=== PATIENT | female | born 1960 | race Two or more races ===

== ENCOUNTER → 2020-08-24 14:32 | Outpatient (BNVA) | payer OTHER, SELFPAY | PROVIDERS: PCP Internal Medicine; Visit Provider Internal Medicine | DX: E66.9 Obesity, unspecified (principal); G47.33 Obstructive sleep apnea (adult) (pediatric); R05 Cough; G47.34 Idiopathic sleep related nonobstructive alveolar hypoventilation; Z99.89 Dependence on other enabling machines and devices | CPT/HCPCS: 99202 ==

== ENCOUNTER 2020-09-05 15:05 | Outpatient (REF) | payer OTHER, SELFPAY ==
--- NOTE | 2020-09-05 17:24 | PFT_ITS ---
FLOWS: FEV1 of 89% of predicted at 2.20 L. FVC 83% of predicted at 2.58 L. FEV1 to FVC ratio of 0.85. No bronchodilator response. LUNG VOLUMES: Total lung capacity 87% of predicted at 4.30 L. Residual volume 84% of predicted at 1.64 L. Slow vital capacity 89% of predicted at 2.66 L. Expiratory reserve volume 50% of predicted at 0.42 L. Diffusion capacity is normal. IMPRESSION: No obstructive or restrictive ventilatory defect. No bronchodilator response. Decreased expiratory reserve volume suggests extrathoracic restriction likely secondary to abdominal obesity. Otherwise normal pulmonary function test. MD PIPE Lal/MODL / [id number]
== END 2020-09-05 15:06 | disposition home or self-care (01) ==
LOC: HO.RESP 15:05
PROVIDERS: Visit Provider Internal Medicine
DX: R05 Cough (principal); G47.33 Obstructive sleep apnea (adult) (pediatric); G47.34 Idiopathic sleep related nonobstructive alveolar hypoventilation; Z99.89 Dependence on other enabling machines and devices
CPT/HCPCS: 94060; 94727; 94729

== ENCOUNTER → 2020-09-06 13:58 | Outpatient (BNVA) | payer OTHER, SELFPAY | PROVIDERS: PCP Internal Medicine; Visit Provider Internal Medicine | DX: G47.33 Obstructive sleep apnea (adult) (pediatric) (principal); R05 Cough; Z99.89 Dependence on other enabling machines and devices | CPT/HCPCS: 99212 ==

== ENCOUNTER → 2021-04-16 21:02 | Outpatient (REF) | payer OTHER, SELFPAY | LOC: HO.SL 21:02 | PROVIDERS: PCP Internal Medicine; Visit Provider Internal Medicine | DX: G47.33 Obstructive sleep apnea (adult) (pediatric) (principal) | CPT/HCPCS: 95810 ==

== ENCOUNTER 2022-01-04 14:46 | Outpatient (REF) | payer OTHER, SELFPAY ==
--- NOTE | ~2022-01-04 | XR_ITS ---
EXAMINATION: BILATERAL ANKLE X-RAY CLINICAL INFORMATION: Bilateral ankle pain COMPARISON: None TECHNIQUE: 3 views of each ankle FINDINGS: Bone alignment is normal. No fracture or dislocation is seen. The ankle mortise is normal. There are large bilateral calcaneal spurs. Soft tissues are otherwise normal. XR/XR ankle LT 2V IMPRESSION: Large bilateral calcaneal spurs. Otherwise unremarkable exam.
--- NOTE | ~2022-01-04 | XR_ITS ---
EXAMINATION: BILATERAL FOOT X-RAY CLINICAL INFORMATION: Pain COMPARISON: Previous left foot July 2010 TECHNIQUE: 3 views of each foot FINDINGS: Bone alignment is normal. No fracture or dislocation is seen. There are mild degenerative changes at the navicular cuneiform joints bilaterally and right first MTP joint. Joint spaces are otherwise normal. There are large bilateral calcaneal spurs. There are accessory perineal ossicles bilaterally. XR/XR foot LT min 3V IMPRESSION: Large bilateral calcaneal spurs. Mild degenerative changes at the navicular cuneiform joints bilaterally and right first MTP joint. Bilateral accessory perineal ossicles.
--- NOTE | ~2022-01-04 | XR_ITS ---
EXAMINATION: BILATERAL FOOT X-RAY CLINICAL INFORMATION: Pain COMPARISON: Previous left foot July 2010 TECHNIQUE: 3 views of each foot FINDINGS: Bone alignment is normal. No fracture or dislocation is seen. There are mild degenerative changes at the navicular cuneiform joints bilaterally and right first MTP joint. Joint spaces are otherwise normal. There are large bilateral calcaneal spurs. There are accessory perineal ossicles bilaterally. XR/XR foot RT min 3V IMPRESSION: Large bilateral calcaneal spurs. Mild degenerative changes at the navicular cuneiform joints bilaterally and right first MTP joint. Bilateral accessory perineal ossicles.
--- NOTE | ~2022-01-04 | XR_ITS ---
EXAMINATION: BILATERAL ANKLE X-RAY CLINICAL INFORMATION: Bilateral ankle pain COMPARISON: None TECHNIQUE: 3 views of each ankle FINDINGS: Bone alignment is normal. No fracture or dislocation is seen. The ankle mortise is normal. There are large bilateral calcaneal spurs. Soft tissues are otherwise normal. XR/XR ankle RT 2V IMPRESSION: Large bilateral calcaneal spurs. Otherwise unremarkable exam.
== END 2022-01-04 14:47 | disposition home or self-care (01) ==
LOC: HO.XRAY 14:46
PROVIDERS: PCP Internal Medicine; Visit Provider Emergency Medicine
DX: M79.671 Pain in right foot (principal); M79.672 Pain in left foot
CPT/HCPCS: 73600; 73630

== ENCOUNTER 2022-04-26 15:29 | Outpatient (REF) | payer OTHER, SELFPAY ==
--- NOTE | ~2022-04-26 | MM_ITS ---
EXAMINATION: MM SCREENING DIGITAL BREAST TOMOSYNTHESIS, BILATERAL CLINICAL INFORMATION: Screening. Asymptomatic. The lifetime risk of breast cancer based on the Tyrer-Cuzick Model is 6.7%. COMPARISON: Mammography: March 04, 2020 and studies dating back to August 09, 2015 TECHNIQUE: Digital breast tomosynthesis is performed in both the craniocaudal and mediolateral oblique views along with computer-aided detection (CAD). Synthesized 2D images are generated from the tomosynthesis. FINDINGS: There are scattered areas of fibroglandular density (ACR BI-RADS breast composition Category b). There are no significant masses, abnormal calcifications, or other abnormalities. MM/MM tomosynthesis screening BI IMPRESSION: No significant changes from prior exam. ASSESSMENT: BI-RADS 1: Negative RECOMMENDATION: Routine annual mammography screening. This patient's information was entered into a reminder system with a target due date for their next mammogram.
== END 2022-04-26 15:30 | disposition home or self-care (01) ==
LOC: HO.MAMMO 15:29
PROVIDERS: PCP Internal Medicine; Visit Provider Internal Medicine
DX: Z12.31 Encounter for screening mammogram for malignant neoplasm of breast (principal)
CPT/HCPCS: 77063; 77067

== ENCOUNTER → 2022-09-19 12:53 | Outpatient (BNVA) | payer OTHER, SELFPAY | PROVIDERS: PCP Internal Medicine; Referring Provider Emergency Medicine; Visit Provider Surgery | DX: Z12.11 Encounter for screening for malignant neoplasm of colon (principal); Z80.3 Family history of malignant neoplasm of breast | CPT/HCPCS: 99202 ==

== ENCOUNTER 2022-10-17 15:00 | Outpatient (RCR) | payer OTHER, SELFPAY | END 2022-10-26 10:29 | disposition home or self-care (01) | LOC: HO.PT 15:00 | PROVIDERS: PCP Internal Medicine; Visit Provider Registered Nurse | DX: M77.31 Calcaneal spur, right foot (principal); M77.32 Calcaneal spur, left foot | CPT/HCPCS: 97033; 97110; 97140; 97162 ==

== ENCOUNTER 2022-12-19 12:16 | Outpatient (REF) | payer OTHER, SELFPAY ==
--- NOTE | ~2022-12-19 | XR_ITS ---
EXAMINATION: XR ANKLE, RIGHT CLINICAL INFORMATION: Pain without injury. COMPARISON: Radiographs dated 01/04/2022. TECHNIQUE: AP, lateral, and mortise views of the right ankle. FINDINGS: Bony alignment and mineralization are normal. The ankle mortise is intact. No fracture, dislocation or right ankle joint effusion is seen. Boehler's angle is normal. There are large posterior and plantar calcaneal spurs. There is moderate soft tissue swelling, most pronounced adjacent to the medial malleolus. XR/XR ankle LT min 3V IMPRESSION: 1. No fracture, dislocation or right ankle joint effusion is seen. 2. There are large posterior and plantar right calcaneal spurs. 3. There is moderate soft tissue swelling, most pronounced adjacent to the medial malleolus. EXAMINATION: XR ANKLE, LEFT CLINICAL INFORMATION: Pain without injury. COMPARISON: Radiographs dated 01/04/2022. TECHNIQUE: AP, lateral, and mortise views of the left ankle. FINDINGS: Bony alignment and mineralization are normal. The ankle mortise is intact. No fracture, dislocation or left ankle joint effusion is seen. Boehler's angle is normal. There are moderately large posterior and plantar calcaneal spurs. There are degenerative changes of the dorsal midfoot. The soft tissue planes are unremarkable. IMPRESSION: 1. No fracture, dislocation or left ankle joint effusion is seen. 2. There are moderately large posterior and plantar left calcaneal spurs.
--- NOTE | ~2022-12-19 | XR_ITS ---
EXAMINATION: XR KNEE, RIGHT CLINICAL INFORMATION: Pain without injury. COMPARISON: None available. TECHNIQUE: AP, lateral, tunnel, and sunrise views of the right knee. FINDINGS: Bony alignment and mineralization are normal. The lateral, medial and patellofemoral joint space compartments are well-maintained. There is mild is peripheral osteophyte formation of the medial and patellofemoral compartments. No fracture, dislocation or joint effusion is seen. There is no foreign body. XR/XR knee LT 4V IMPRESSION: 1. There is mild osteoarthritic change of the medial and patellofemoral joint space compartments of the right knee. 2. No fracture, dislocation or joint effusion is seen. EXAMINATION: XR KNEE, LEFT CLINICAL INFORMATION: Pain without injury. COMPARISON: Radiographs dated 03/23/2009. TECHNIQUE: Four views of the left knee. FINDINGS: Bony alignment and mineralization are normal. The lateral, medial and patellofemoral joint space compartments are well-maintained. There is mild peripheral osteophyte formation of the medial and patellofemoral compartments. No fracture, dislocation or joint effusion is seen. No varus or valgus configuration is seen. There is no foreign body. IMPRESSION: 1. There is mild osteoarthritic change of the medial and patellofemoral joint space compartment of the left knee. 2. No fracture, dislocation or joint effusion is seen.
--- NOTE | ~2022-12-19 | XR_ITS ---
EXAMINATION: XR KNEE, RIGHT CLINICAL INFORMATION: Pain without injury. COMPARISON: None available. TECHNIQUE: AP, lateral, tunnel, and sunrise views of the right knee. FINDINGS: Bony alignment and mineralization are normal. The lateral, medial and patellofemoral joint space compartments are well-maintained. There is mild is peripheral osteophyte formation of the medial and patellofemoral compartments. No fracture, dislocation or joint effusion is seen. There is no foreign body. XR/XR knee RT 4V IMPRESSION: 1. There is mild osteoarthritic change of the medial and patellofemoral joint space compartments of the right knee. 2. No fracture, dislocation or joint effusion is seen. EXAMINATION: XR KNEE, LEFT CLINICAL INFORMATION: Pain without injury. COMPARISON: Radiographs dated 03/23/2009. TECHNIQUE: Four views of the left knee. FINDINGS: Bony alignment and mineralization are normal. The lateral, medial and patellofemoral joint space compartments are well-maintained. There is mild peripheral osteophyte formation of the medial and patellofemoral compartments. No fracture, dislocation or joint effusion is seen. No varus or valgus configuration is seen. There is no foreign body. IMPRESSION: 1. There is mild osteoarthritic change of the medial and patellofemoral joint space compartment of the left knee. 2. No fracture, dislocation or joint effusion is seen.
--- NOTE | ~2022-12-19 | XR_ITS ---
EXAMINATION: XR ANKLE, RIGHT CLINICAL INFORMATION: Pain without injury. COMPARISON: Radiographs dated 01/04/2022. TECHNIQUE: AP, lateral, and mortise views of the right ankle. FINDINGS: Bony alignment and mineralization are normal. The ankle mortise is intact. No fracture, dislocation or right ankle joint effusion is seen. Boehler's angle is normal. There are large posterior and plantar calcaneal spurs. There is moderate soft tissue swelling, most pronounced adjacent to the medial malleolus. XR/XR ankle RT min 3V IMPRESSION: 1. No fracture, dislocation or right ankle joint effusion is seen. 2. There are large posterior and plantar right calcaneal spurs. 3. There is moderate soft tissue swelling, most pronounced adjacent to the medial malleolus. EXAMINATION: XR ANKLE, LEFT CLINICAL INFORMATION: Pain without injury. COMPARISON: Radiographs dated 01/04/2022. TECHNIQUE: AP, lateral, and mortise views of the left ankle. FINDINGS: Bony alignment and mineralization are normal. The ankle mortise is intact. No fracture, dislocation or left ankle joint effusion is seen. Boehler's angle is normal. There are moderately large posterior and plantar calcaneal spurs. There are degenerative changes of the dorsal midfoot. The soft tissue planes are unremarkable. IMPRESSION: 1. No fracture, dislocation or left ankle joint effusion is seen. 2. There are moderately large posterior and plantar left calcaneal spurs.
== END 2022-12-19 12:17 | disposition home or self-care (01) ==
LOC: HO.HHCX 12:16
PROVIDERS: Visit Provider Family Medicine
DX: M79.671 Pain in right foot (principal); M79.672 Pain in left foot; M25.561 Pain in right knee; M25.562 Pain in left knee
CPT/HCPCS: 73564; 73610

== ENCOUNTER 2023-01-03 09:02 | Outpatient (REF) | payer OTHER, SELFPAY ==
--- NOTE | ~2023-01-03 | US_ITS ---
EXAMINATION: US ABDOMEN COMPLETE CLINICAL INFORMATION: Left upper quadrant abdominal pain. COMPARISON: CT abdomen and pelvis 11/15/2010. Ultrasound abdomen 06/07/2008. TECHNIQUE: Real-time imaging of the abdominal viscera. Technically difficult study secondary to bowel gas. FINDINGS: PANCREAS: Obscured. ABDOMINAL AORTA: Obscured. INFERIOR VENA CAVA: Visualized portions are normal. LIVER: The liver is normal in size. The liver contour is normal. There is diffuse increased liver parenchymal echogenicity, consistent with hepatic steatosis. No definite focal lesion is seen, but evaluation is limited due to poor sound beam penetration through the coarse echogenic liver parenchyma. There is no intrahepatic biliary duct dilatation seen. GALLBLADDER: Surgically absent. COMMON BILE DUCT: Normal in caliber measuring 0.8 cm in diameter. RIGHT KIDNEY: No hydronephrosis. No renal calculi or focal parenchymal lesions. The kidney measures 9.9 cm in maximum dimension. LEFT KIDNEY: No hydronephrosis. No renal calculi or focal parenchymal lesions. The kidney measures 10.0 cm in maximum dimension. SPLEEN: The spleen measures 8.1 cm in maximum dimension. FREE FLUID: None. US/US abdomen complete IMPRESSION: Hepatic steatosis.
== END 2023-01-03 09:03 | disposition home or self-care (01) ==
LOC: HO.US 09:02
PROVIDERS: PCP Internal Medicine; Visit Provider Family Medicine
DX: R19.02 Left upper quadrant abdominal swelling, mass and lump (principal)
CPT/HCPCS: 76700

== ENCOUNTER 2023-01-22 09:00 | Day surgery (SDC) | payer OTHER, SELFPAY ==
[2023-01-18 13:26] VITALS: BMI 35.2
--- NOTE | 2023-01-21 09:12 | HO.ANESPROP2 ---
HPI - Anesthesia Eval Consult details Narrative: 62yo F for Colonoscopy, poss polypectomy PONV PMFSH Active Problems Active Problems: All Active Problems (Updated 10/04/22 @ 10:55 by Millie Lambert, RN) Family history of breast cancer (Acute) Colon cancer screening (Acute) Nocturnal hypoxemia (Acute) Cough (Acute) MAYCOL on CPAP (Acute) Obesity (BMI 30-39.9) (Acute) Past Medical History Medical History (Updated 10/04/22 @ 10:55 by Millie Lambert, RN) Chronic headache disorder Colon cancer screening Cough Depressive disorder Family history of breast cancer Nocturnal hypoxemia Obesity Obesity (BMI 30-39.9) MAYCOL on CPAP PONV (postoperative nausea and vomiting) Type II diabetes mellitus Surgical History Surgical History (Updated 10/04/22 @ 10:55 by Millie Lambert, RN) History of tubal ligation Hx of cholecystectomy Hx of colonoscopy Social History Social History Alcohol intake: never Patient Tobacco Use Status: Former Tobacco user Quit Date: > 25 yrs ago Meds Allergies Allergy/AdvReac Type Severity Reaction Status Date / Time No Known Allergies Allergy Verified 09/19/22 13:01 Home Medications Medication Instructions Recorded Confirmed Last Taken Type hydrocortisone 2.5 % topical cream [place] 10/04/22 10/04/22 Unknown History with perineal applicator Exam Exam Date and Time: January 21, 2023 0912 Height,Weight and Vital Signs: Height 5 ft 3 in Weight 90.265 kg Assessment and Plan Assessment Anesthesia Assessment: Chart Reviewed
--- NOTE | 2023-01-22 09:25 | MHC.SHP ---
Pre-Procedural Eval Section A Date of Service: 01/22/23 Section B Chief Complaint: screening,Family history of malignant neoplasm of Details of Present Illness: for screening colonoscopy, no GI complaints Relevant Social History: None Present Medications: see Short Stay Collaborative assessment Medical History: Significant History (MAYCOL, obesity) History of Previous Operations: No relevant previous surgery Allergies: Allergies Allergy/AdvReac Type Severity Reaction Status Date / Time No Known Allergies Allergy Verified 09/19/22 13:01 Review of Systems Sugical H&P ROS: Negative: Constitution, Cardiovascular, Respiratory, Neurological, Psychiatric, Hem-Onc, Allergic/Immunologic, Gastrointestinal, Genitourinary, Musculoskeletal, Integumentary, Endocrine and Eyes/Ears/Nose/Throat Exam Surgical H&P Exam: Normal: HEENT, Normal: Heart, Normal: Lungs, Normal: Extremities, Normal: Abdomen, Normal: Skin and Normal: Neurological Plan Diagnosis/Plan: Unchanged I have reviewed the history and physical and performed a pertinent physical examination on my patient. No changes have occurred unless specified. Time Spent With Patient Time: Total time managing care of this patient today ____ minutes.
[2023-01-22 09:29] VITALS: BP 155/71; PULSE 77; RESP 16; TEMP 36.8; O2SAT 97
[2023-01-22 09:38] LABS: Glucose, Whole Blood 155 mg/dL (60-115)
[2023-01-22] MEDS: Lactated Ringers 1,000 ML 100 ML IVCONT (09:41)
--- NOTE | 2023-01-22 09:58 | HO.ANESPROP2 ---
[facility] Active Problems Active Problems: All Active Problems (Updated 01/22/23 @ 09:22 by Kim Beckett RN) Family history of breast cancer (Acute) Colon cancer screening (Acute) Nocturnal hypoxemia (Acute) Cough (Acute) MAYCOL on CPAP (Acute) Obesity (BMI 30-39.9) (Acute) Past Medical History Medical History Chronic headache disorder Colon cancer screening Cough Depressive disorder Family history of breast cancer Nocturnal hypoxemia Obesity Obesity (BMI 30-39.9) MAYCOL on CPAP PONV (postoperative nausea and vomiting) Tachycardia Type II diabetes mellitus Family History Family history of problems with anesthesia: No Surgical History Surgical History History of tubal ligation Hx of cholecystectomy Hx of colonoscopy History of Problems with Anesthesia: No Social History Social History Alcohol intake: never Patient Tobacco Use Status: Former Tobacco user Quit Date: > 25 yrs ago Use of substances other than those prescribed or required for medical reasons: No Are you DNR?: No Advance Directives: No Advance Directives Information Provided: Yes Meds Allergies Allergy/AdvReac Type Severity Reaction Status Date / Time No Known Allergies Allergy Verified 09/19/22 13:01 Active Medications: Current Medications Lactated Ringer's (Lr) 1,000 mls @ 100 mls/hr IVCONT .Q10H FELIPE Last Admin: 01/22/23 09:41 Dose: 100 mls/hr Home Medications Medication Instructions Recorded Confirmed Last Taken Type hydrocortisone 2.5 % topical cream SC 10/04/22 10/04/22 Unknown History with perineal applicator acetaminophen 650 mg 650 mg PO Q8H PRN mild pain 01/22/23 Unknown History tablet,extended release (Mapap Arthritis Pain) cetirizine 10 mg tablet 10 mg PO DAILY 01/22/23 Unknown History diclofenac sodium 1 % topical gel topical 01/22/23 Unknown History meloxicam 15 mg tablet 15 mg PO DAILY 01/22/23 Unknown History naproxen 500 mg tablet 500 mg PO BID 01/22/23 Unknown History nirmatrelvir 300 mg (150 mg ea PO 01/22/23 Unknown History x2)-ritonavir 100 mg tablet,dose pack (Paxlovid) Exam Exam Date and Time: January 22, 2023 0958 Height,Weight and Vital Signs: Height 5 ft 3 in Weight 90.265 kg Last Vital Signs Temp 98.3 F 01/22/23 09:29 Pulse 77 01/22/23 09:29 Resp 16 01/22/23 09:29 BP 155/71 H 01/22/23 09:29 Pulse Ox 97 01/22/23 09:29 O2 Del Method Room Air 01/22/23 09:29 Pertinent Lab Results Pertinent Lab Results: Laboratory Tests 01/22/23 09:34 POC Glucose 155 H Airway Mallampati Class: IV TM Dist: >3cm Neck ROM: Full Heart: RRR Lungs: CTA Assessment and Plan Assessment Anesthesia Assessment: Anesthesia Plan Discussed Final Anesthetic Review Family History of Problems with Anesthesia: No History of Problems with Anesthesia: No NPO: Yes ASA Class: III Final Preanesthetic Review: Meds/Allgs Chart Reviewed, Consent Obtained/Reviewed and Anes Risks/Benef Reviewed Patient Risk: Low Procedure Risk: Low Anesthetic Plan Anesthetic Plan: MAC: Disposition: Standard PACU
--- NOTE | 2023-01-22 10:04 | W.PM.OPN ---
Operative Note Operative Note Date of Service: 01/22/23 Narrative: Preop diagnosis: Colon cancer screening Postop diagnosis: 1. External hemorrhoids otherwise normal colonoscopy findings Procedure: Colonoscopy Surgeon: Sang Johns MD The patient is a 62 year female here for screening colonoscopy. She understood the technique of the procedure as well as the risks, benefits, and alternatives. The patient was brought to the operating room and placed in left lateral decubitus position under monitored anesthesia care. A surgical time-out was done. A full digital rectal exam was done and this did not reveal any significant anal lesions. The tip of the Olympus colonoscope was gently introduced through the anal orifice advanced with insufflation all the way to the cecum. The cecum was intubated. The cecum was identified by visualization of the ileocecal valve as well as the appendiceal orifice. The cecal mucosa was unremarkable. The scope was gradually withdrawn with careful examination of the entire colonic mucosa being done with scope withdrawal. The patient had adequate bowel prep so it was unlikely that any lesion may have been missed. The rectum was reached and there were no lesions seen. There was note of not external hemorrhoids.. The scope was then withdrawn completely with desufflation . The patient tolerated the procedure well. There were no immediate complications. Her next colonoscopy may be in the next 10 years.
[2023-01-22 10:09] VITALS: BP 97/56; PULSE 86; RESP 16; TEMP 36.6; O2SAT 97
[2023-01-22 10:24] VITALS: BP 128/67; PULSE 79; RESP 20; TEMP 36.1; O2SAT 98
== END 2023-01-22 10:59 | disposition home or self-care (01) ==
PROVIDERS: PCP Internal Medicine; Visit Provider Surgery
PROC: 0DJD8ZZ Inspection of Lower Intestinal Tract, Via Natural or Artificial Opening Endoscopic (ICD-10-PCS; CPT 45378; principal; 2023-01-22 09:30)
DX: Z12.11 Encounter for screening for malignant neoplasm of colon (principal); K64.8 Other hemorrhoids; K64.4 Residual hemorrhoidal skin tags; Z80.3 Family history of malignant neoplasm of breast; G47.33 Obstructive sleep apnea (adult) (pediatric); R09.02 Hypoxemia; R05.9 Cough, unspecified; E11.9 Type 2 diabetes mellitus without complications; E66.9 Obesity, unspecified; Z99.89 Dependence on other enabling machines and devices; Z90.49 Acquired absence of other specified parts of digestive tract; Z87.891 Personal history of nicotine dependence; Z79.899 Other long term (current) drug therapy
CPT/HCPCS: G0121; 82947

== ENCOUNTER → 2023-01-22 09:00 | Outpatient (BNV) | payer OTHER, SELFPAY | PROVIDERS: PCP Internal Medicine; Visit Provider Surgery | DX: Z12.11 Encounter for screening for malignant neoplasm of colon (principal); Z80.0 Family history of malignant neoplasm of digestive organs | CPT/HCPCS: G0105 ==

== ENCOUNTER 2023-01-24 13:53 | Outpatient (AMB) | payer OTHER, SELFPAY ==
--- NOTE | 2023-01-24 14:10 | A.OFFVIS_ITS ---
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 Patient reports that she has ongoing bilateral knee pain for about 2 months now, the pain is felt in the posterior aspect of the knees. She explains that this pain is felt as a throbbing pain. No history of pervious treatment ie, therapy or injections but she has tried ice application, topical creams, OTC NSAIDs and Naproxen with no relief. 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 She complains of pain primarily in the posterior of her knees bilaterally, worse with [ ]. She describes her pain as throbbing She found no relief from PO or topical NSAIDs, or ice, and has not done any PT or injections. [facility] Medical History Chronic headache disorder Colon cancer screening Cough Depressive disorder Family history of breast cancer Nocturnal hypoxemia Obesity Obesity (BMI 30-39.9) MAYCOL on CPAP PONV (postoperative nausea and vomiting) Tachycardia Type II diabetes mellitus Surgical History History of tubal ligation Hx of cholecystectomy Hx of colonoscopy Social History Alcohol intake: never Patient Tobacco Use Status: Former Tobacco user Quit Date: > 25 yrs ago Review of Systems Const All systems reviewed & are unremarkable except as noted in HPI and below Physical Exam Const General: no acute distress, alert and awake Orientation/consciousness: patient oriented x3 HEENT Head: Yes normocephalic and Yes atraumatic Eyes EOM: EOMs intact bilaterally Resp Effort & Inspection: normal respiratory effort and able to speak in complete sentences Cardio Jugular venous distension: no JVD Skin General skin exam: turgor normal Rashes: no rashes Neuro General: patient oriented x3 Extrem Other: Bilateral Knees: Posterior fossa fullness on left. Mild retropatellar ttp No gait No effusion Full ROM Psych Appearance: grossly normal Affect: normal affect Attitude: cooperative Results Reviewed Results Reviewed: 01/24/23 14:42 BUPivacaine MPF 0.25 % [Sensorcaine-MPF 0.25% 10 ML] 10 ml .ROUTE .STK-MED ONE Lidocaine HCl 1 % [Xylocaine 1 %] 2 ml .ROUTE .STK-MED ONE Lidocaine HCl 2 % MPF [Xylocaine 2 % MPF] 5 ml .ROUTE .STK-MED ONE dexAMETHasone sod phosphate [Decadron] 4 mg .ROUTE .STK-MED ONE I personally reviewed relevant radiographs. 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 (2) Marie's cyst of knee: Code(s): M71.20 - Synovial cyst of popliteal space [Marie], unspecified knee Plan This is a 62 year old woman with bilateral knee pain. She has pain with daily activity, worse with stairs and extended ambulation, and localized primarily in the posterior aspect of her knees. She denies any prior treatment and found no relief from OTC NSAIDs. I discussed her diagnosis and treatment options, including injections. She refused injections today. She can follow up prn. Coding Level of Care Code New Pt Level 4 (00096) Diagnoses Diabetes mellitus E11.9 Marie's cyst of knee M71.20
== END 2023-01-24 14:59 | disposition home or self-care (01) ==
PROVIDERS: PCP Internal Medicine; Visit Provider Orthopaedic Surgery
DX: M71.20 Synovial cyst of popliteal space [Baker], unspecified knee (principal); M17.0 Bilateral primary osteoarthritis of knee
CPT/HCPCS: 99203

== ENCOUNTER → 2023-01-24 13:53 | Outpatient (BNVA) | payer OTHER, SELFPAY | PROVIDERS: PCP Internal Medicine; Visit Provider Orthopaedic Surgery | DX: M25.561 Pain in right knee (principal); M25.562 Pain in left knee; M71.21 Synovial cyst of popliteal space [Baker], right knee; M71.22 Synovial cyst of popliteal space [Baker], left knee; E11.9 Type 2 diabetes mellitus without complications | CPT/HCPCS: J1100 ==

== ENCOUNTER 2023-02-06 09:00 | Outpatient (REF) | payer OTHER, SELFPAY ==
[2023-02-06 12:22] LABS: Cholesterol 188 mg/dL; HDL Cholesterol 43 mg/dL; LDL Cholesterol Calculated 124 mg/dl; Triglycerides 106 mg/dL
[2023-02-06 12:24] LABS: Alanine Aminotransferase 26 U/L (0-31); Albumin Level 3.9 g/dL (3.5-5.0); Alkaline Phosphatase 98 U/L (39-117); Anion Gap 12 (12-20); Aspartate Amino Transferase 18 U/L (5-31); Bilirubin Direct 0.1 mg/dL (0.0-0.5); Bilirubin Total 0.3 mg/dL (0.0-1.0); Blood Urea Nitrogen 16 mg/dL (9-16); Calcium 9.7 mg/dL (8.4-10.2); Carbon Dioxide 27 mmol/L (22-29); Chloride 104 mmol/L (96-108); Estimated Glomerular Filt Rate > 60; Glucose Random 114 mg/dL (60-115); Potassium 4.3 mmol/L (3.3-5.1); Sodium 139 mmol/L (135-145); TSH reflex Free T4 0.78 uIU/mL (0.32-4.0); Total Protein 7.9 g/dL (6.5-8.0)
[2023-02-06 19:12] LABS: Reflex LDLD? No
== END 2023-02-06 09:01 | disposition home or self-care (01) ==
LOC: HO.HHCL 09:00
PROVIDERS: Visit Provider Internal Medicine
DX: E11.9 Type 2 diabetes mellitus without complications (principal)
CPT/HCPCS: 36415; 80048; 80061; 80076; 84443

== ENCOUNTER 2023-03-06 12:48 | Outpatient (REF) | payer OTHER, SELFPAY ==
--- NOTE | ~2023-03-06 | US_ITS ---
EXAMINATION: Ultrasound extremity nonvascular CLINICAL INFORMATION: Bilateral posterior knee pain COMPARISON: None. TECHNIQUE: Doppler color and grayscale evaluation of the bilateral popliteal fossa FINDINGS: There is a 5.5 x 0.9 x 2.5 cm left Marie's cyst. No right Marie's cyst is seen. The posterior tibial veins are patent bilaterally. US/US extremity nonvascular IMPRESSION: Left Marie's cyst.
== END 2023-03-06 12:49 | disposition home or self-care (01) ==
LOC: HO.HMGCX 12:48
PROVIDERS: PCP Internal Medicine; Visit Provider Internal Medicine
DX: M25.569 Pain in unspecified knee (principal)
CPT/HCPCS: 76882

== ENCOUNTER 2023-03-12 13:26 | Outpatient (REF) | payer OTHER, SELFPAY ==
[2023-03-12 16:00] LABS: MANUAL DIFF FLAG NO
[2023-03-12 16:08] LABS: Basophils Absolute Auto 0.1 X10*3/uL (0.0-0.2); Basophils Percent Auto 0.7 % (0-2); Eosinophils Absolute Auto 0.1 X10*3/uL (0.0-0.4); Eosinophils Percent Auto 1.1 % (0-4); Hematocrit 44.5 % (37.0-47.0); Hemoglobin 14.4 g/dl (12.0-16.0); Imm Gran Abs Auto 0.03 X10*3/uL (0.00-0.03); Imm Gran Pct Auto 0.4 % (0.0-0.4); Lymphocytes Absolute Auto 1.6 X10*3/uL (1.2-4.9); Lymphocytes Percent Auto 21.1 % (20-40); Mean Corpuscular HGB Conc 32.4 g/dl (31.0-35.0); Mean Corpuscular Hemoglobin 28.6 pg (27.0-33.0); Mean Corpuscular Volume 88.3 fL (80.0-98.0); Mean Platelet Volume 9.9 fL (9.4-12.3); Monocytes Absolute Auto 0.6 X10*3/uL (0.1-1.2); Monocytes Percent Auto 7.4 % (2-11); Neutrophils Absolute Auto 5.3 x10*3/uL (2.0-8.3); Neutrophils Percent Auto 69.3 % (45-73); Platelet Count 308 X10*3/uL (160-400); Red Blood Count 5.04 X10*6/uL (4.20-5.50); Red Cell Distribution Width 12.7 % (11.0-16.0); White Blood Count 7.6 X10*3/uL (4.8-10.8)
[2023-03-14 06:33] LABS: Lyme Abs Screen <0.90 index
== END 2023-03-12 13:27 | disposition home or self-care (01) ==
LOC: HO.HHCL 13:26
PROVIDERS: Visit Provider Internal Medicine
DX: M25.562 Pain in left knee (principal); M79.652 Pain in left thigh; G89.29 Other chronic pain
CPT/HCPCS: 36415; 82550; 85025; 86617; 86618

== ENCOUNTER 2023-05-06 17:59 | Outpatient (REF) | payer OTHER, SELFPAY ==
--- NOTE | ~2023-05-06 | MR_ITS ---
EXAMINATION: MR KNEE WITHOUT CONTRAST, LEFT MR LOWER EXTREMITY NONJOINT WITHOUT CONTRAST, LEFT CLINICAL INFORMATION: Left knee pain and swelling and thigh pain. COMPARISON: None available. TECHNIQUE: MRI of the knee without contrast was performed using routine sequences on a high-field scanner. FINDINGS: MENISCI: Medial Meniscus: Complex tear of the posterior horn with a prominent radial component and extrusion of the meniscal body. Lateral Meniscus: Intact. LIGAMENTS: Cruciate: Intact. Collateral: Intact. EXTENSOR MECHANISM: Intact. ARTICULAR CARTILAGE/BONE: Patellofemoral Compartment: Cartilage thinning and surface irregularity throughout the central and medial patella and medial trochlea with small marginal osteophytes. Medial Compartment: Moderate cartilage thinning and surface irregularity with prominent marginal osteophytes. Lateral Compartment: Small marginal osteophytes. JOINT FLUID AND BURSAE: Small joint effusion with mild synovitis, and a moderately sized Marie's cyst. There is mild diffuse edema of the quadriceps muscles which is nonspecific and may be due to recent activity or early denervation change. No muscle tear. No soft tissue mass or focal fluid collection. Mild tendinitis at the gluteus minimus and medius insertions onto the greater trochanter. No left hip joint effusion. No acute osseous abnormality. No exostosis or bone lesion. MR/MR femur LT wo con IMPRESSION: 1. Complex tear of the posterior horn of the medial meniscus with a prominent radial component and extrusion of the meniscal body. 2. Moderate medial and mild patellofemoral/lateral compartment osteoarthritis. Small joint effusion with mild synovitis and a moderately sized Marie's cyst. 3. Mild gluteus minimus and medius insertional tendinitis. 4. Mild diffuse edema of the left quadriceps muscles which is nonspecific. No muscle tear. Mild gluteus medius/minimus insertional tendinitis.
== END 2023-05-06 18:00 | disposition home or self-care (01) ==
LOC: HO.MRI 17:59
PROVIDERS: PCP Internal Medicine; Visit Provider Internal Medicine
DX: M25.562 Pain in left knee (principal); M79.652 Pain in left thigh; G89.29 Other chronic pain
CPT/HCPCS: 73718; 73721

== ENCOUNTER → 2023-07-19 12:15 | Outpatient (BNV) | payer OTHER, SELFPAY | PROVIDERS: PCP Internal Medicine; Visit Provider Radiology Diagnostic Radiology | DX: Z12.31 Encounter for screening mammogram for malignant neoplasm of breast (principal) | CPT/HCPCS: 77063; 77067 ==

== ENCOUNTER 2023-07-19 12:24 | Outpatient (REF) | payer OTHER, SELFPAY | END 2023-07-19 12:25 | disposition home or self-care (01) | LOC: HO.MAMMO 12:24 | PROVIDERS: PCP Internal Medicine; Visit Provider Internal Medicine | DX: Z12.31 Encounter for screening mammogram for malignant neoplasm of breast (principal) | CPT/HCPCS: 77063; 77067 ==

== ENCOUNTER 2023-08-27 16:43 | Outpatient (REF) | payer OTHER, SELFPAY ==
[2023-08-27 18:05] LABS: Microalbum/Creatinine Ratio Ur 5.8 ug/mg cr (<30)
== END 2023-08-27 16:44 | disposition home or self-care (01) ==
LOC: HO.HHCLNP 16:43
PROVIDERS: Visit Provider Internal Medicine
DX: E11.9 Type 2 diabetes mellitus without complications (principal)
CPT/HCPCS: 82043; 82570

== ENCOUNTER 2024-02-26 14:49 | Outpatient (AMB) | payer OTHER, SELFPAY ==
[2024-02-26 15:00] VITALS: BP 132/70; PULSE 78; O2SAT 98; BMI 33.8
--- NOTE | 2024-02-26 15:00 | A.OFFVIS_ITS ---
Vital Signs 02/26/24 15:00 Height 5 ft 3 in Weight 191 lb BMI 33.8 BP 132/70 Blood Pressure Location Lt brachial Position Sitting Pulse 78 Pulse Source Pulse Oximeter Pulse Oximetry (%) 98 Oxygen Delivery Method Room Air Intake Visit Reasons: Obstructive sleep apnea Intake Note: pt is here for a visit today and stating she needs a replacement machine, it is over 5 years old and is not working properly. When she sleeps with and without the cpap she is waking up with a headache. [facility] is current DME, but she has [employer] insurance Acute Care Occupational Therapist Required: Yes Acute Care Occupational Therapist Name: [id number] Allergies No Known Allergies Allergy (Verified 02/26/24 15:24) Medication List - Last Reconciled 02/26/24 by Neda Fernandez MD acetaminophen ER (Mapap Arthritis Pain) 650 mg PO Q8H PRN cetirizine 10 mg PO DAILY hydrocortisone 2.5% MS naproxen 500 mg PO BID Do you need a note to return to daycare/school/sports/work: No HPI HPI Obstructive sleep apnea: Details: 63 YEARS OLD FEMALE. COMES BACK TO SEE ME AFTER ABOUT 3 YEARS, LAST SEEN IN 021. IN RELATION TO HER OBSTRUCTIVE SLEEP APNEA. IN THE MEANTIME HAS BEEN FOLLOWED UP AND MANAGED BY HER PRIMARY CARE PHYSRANI SHE WAS DIAGNOSED TO HAVE OBSTRUCTIVE SLEEP APNEA BACK IN 2013, AFTER CPAP TITRATION SHE WAS STARTED ON NASAL PILLOWS AND PRESSURE OF 8 CMs . SHE HAS BEEN USING HER CPAP REGULARLY ALL THESE PAST YEARS. INITIALLY SHE ALSO HAD O2 ALONG WITH CPAP BUT NEED FOR O2 COULD NOT BE CONFIRMED HER O2 SAT DURING CPAP TITRATION WAS NORMAL. SHE COMES FOR FOLLOW-UP TODAY BECAUSE SHE SAY IS HER CPAP MACHINE IS VERY OLD AND IS NOT FUNCTIONING WELL. IT MAKES SOME NOISE AND DOES NOT HAVE CAPABILITY OF THE TRANSMITTING THE COMPLIANCE DATA. ALSO HER INSURANCE HAS CHANGED AND SHE WILL NEED TO HAVE A DIFFERENT DME PROVIDER. [facility] Medical History Tachycardia PONV (postoperative nausea and vomiting) Type II diabetes mellitus Obesity Depressive disorder Chronic headache disorder Family history of breast cancer Colon cancer screening Nocturnal hypoxemia Cough MAYCOL on CPAP Obesity (BMI 30-39.9) Surgical History History of tubal ligation Hx of cholecystectomy Hx of colonoscopy Social History Alcohol intake: never Patient Tobacco Use Status: Former Tobacco user Review of Systems Const All systems reviewed & are unremarkable except as noted in HPI and below ENT Reports nasal congestion (mild off and on .) Card Denies chest pain, Denies syncope, Denies irregular heart rhythm and Denies dyspnea on exertion Resp Denies cough, Denies dyspnea on exertion and Denies wheezing GI Reports no additional complaints Musc Reports no additional complaints Neuro Reports no additional complaints and Denies syncope Psych Reports no additional complaints Aller/Immun Denies wheezing Physical Exam Vital Signs: Last Vital Signs Pulse 78 02/26/24 15:00 BP 132/70 02/26/24 15:00 Pulse Ox 98 02/26/24 15:00 Oxygen Delivery Method Room Air 02/26/24 15:00 BMI result Body Mass Index 33.8 Const General: healthy appearing, comfortable, no acute distress, alert and awake Orientation/consciousness: patient oriented x3 HEENT Head: Yes normal to inspection General nose exam: No nasal polyps present and No nasal discharge present Face and sinus: Yes sinuses nontender Mouth: oropharynx normal Throat: Yes posterior oropharynx normal Eyes General: appearance normal, both eyes and all related structures Neck Neck: Yes normal visual inspection, Yes no lymphadenopathy, Yes trachea midline and Yes no JVD Thyroid: Thyroid normal Chest Chest palpation & inspection: normal inspection of the chest and normal palpation of entire chest wall Resp Auscultation: clear to auscultation bilaterally, no crackles and no wheezes Cardio Palpation: normal PMI Rate: regular rate Rhythm: regular rhythm Heart sounds: no gallops and no murmurs Peripheral pulses: Peripheral pulses 2+ throughout GI Palpation (GI): Soft to palpation, nontender, No hepatosplenomegaly present and no masses Auscultation: normal bowel sounds Back/Spine/Pelvis Thoracic/Lumbar Spine: thoracic and lumbar spine normal to inspection Skin General skin exam: no rashes or lesions noted Neuro General: patient oriented x3 and no focal motor deficits Cranial nerves: Yes CN's II-XII intact bilaterally Extrem General: Yes normal to inspection, Yes no clubbing, cyanosis or edema, Yes no calf tenderness and No venous stasis dermatitis Psych Appearance: grossly normal Speech and movement: Normal speech and movement present Results Reviewed Results Reviewed: COMPLIANCE DATA NOT AVAILABLE . PATIENT CLAIMS THAT SHE USES EVERY NIGHT REGULARLY Assessment & Plan Assessment & Plan (1) Obesity (BMI 30-39.9): Comment: MODERATELY SEVERE OBESITY IS CHRONIC AND THE CAUSE FOR HER OBSTRUCTIVE SLEEP APNEA more related to her obstructive sleep apnea. she has not been able to lose much weight. Code(s): E66.9 - Obesity, unspecified Category: Medical Plan: Talked to her about her weight and she should try to limit the calories intake. Also should walk daily (2) MAYCOL on CPAP: Comment: She is a well known case of OBSTRUCTIVE SLEEP APNEA. Which has been well treated with the use of CPAP, pressure 8 cm why a nasal pillows. Code(s): G47.33 - Obstructive sleep apnea (adult) (pediatric); Z99.89 - Dependence on other enabling machines and devices Category: Medical Plan: Advised to continue using the CPAP with n.daniel pillows I a.m. sending orders to the DME supplier, for a new CPAP device and also for supplies. will see her back in 3 months for follow-up and make sure that her new CPAP device is working okay. Coding Level of Care Code Est Pt Level 4 (91031) Diagnoses Obesity (BMI 30-39.9) E66.9 MAYCOL on CPAP G47.33; Z99.89
== END 2024-02-26 15:24 | disposition home or self-care (01) ==
PROVIDERS: PCP Internal Medicine; Visit Provider Internal Medicine
DX: E66.9 Obesity, unspecified (principal); G47.33 Obstructive sleep apnea (adult) (pediatric); Z99.89 Dependence on other enabling machines and devices
CPT/HCPCS: 99214

== ENCOUNTER → 2024-02-26 14:49 | Outpatient (BNVA) | payer OTHER, SELFPAY | PROVIDERS: PCP Internal Medicine; Visit Provider Internal Medicine | DX: G47.33 Obstructive sleep apnea (adult) (pediatric) (principal); E66.9 Obesity, unspecified; Z68.33 Body mass index [BMI] 33.0-33.9, adult; Z99.89 Dependence on other enabling machines and devices | CPT/HCPCS: 99212 ==

== ENCOUNTER 2024-07-15 14:19 | Outpatient (AMB) | payer OTHER, SELFPAY ==
[2024-07-15 14:32] VITALS: BP 122/62; PULSE 76; O2SAT 99; BMI 34.4
--- NOTE | 2024-07-15 14:32 | MHC.OFFVIS ---
Vital Signs 07/15/24 14:32 Height 5 ft 3 in Weight 194 lb 0.108 oz BMI 34.4 BP 122/62 Blood Pressure Location Lt brachial Position Sitting Pulse 76 Pulse Source Pulse Oximeter Pulse Oximetry (%) 99 Oxygen Delivery Method Room Air Intake Visit Reasons: ly Intake Note: pt is here for follow up and states she did have a new cpap and is going well, she has [employer] for DME (will call for compliance) Cell Repairer Required: Yes Cell Repairer Services: Cell Repairer Present Allergies No Known Allergies Allergy (Verified 07/15/24 14:48) Medication List - Last Reconciled 07/15/24 by Neda Fernandez MD acetaminophen ER (Mapap Arthritis Pain) 650 mg PO Q8H PRN cetirizine 10 mg PO DAILY hydrocortisone 2.5% MS naproxen 500 mg PO BID Do you need a note to return to daycare/school/sports/work: No HPI HPI ly: Details: THIS 63 YEARS OLD FEMALE WITH MODERATE OBESITY . HAS OBSTRUCTIVE SLEEP APNEA AND IS BEING TREATED WITH THE CPAP. SINCE HER LAST VISIT SHE HAS RECEIVED THE NEW CPAP DEVICE, WHICH IS WORKING WELL. SHE HAS FULLFACE MASK. SHE DENIES ANY ISSUES WITH THE MACHINE. SHE HAS MILD INTERMITTENT NASAL CONGESTION CONTROLLED WITH CETIRIZINE 10 MG ONCE A DAY P.R.N.. SHE DOES NOT HAVE ANY ASTHMA OR COPD. HER IN 2023 AND SHE IS STILL SOMEWHAT SAD. [facility] Medical History Tachycardia PONV (postoperative nausea and vomiting) Type II diabetes mellitus Obesity Depressive disorder Chronic headache disorder Family history of breast cancer Colon cancer screening Nocturnal hypoxemia Cough LY on CPAP Obesity (BMI 30-39.9) Surgical History History of tubal ligation Hx of cholecystectomy Hx of colonoscopy Social History Alcohol intake: never Patient Tobacco Use Status: Former Tobacco user Review of Systems Const All systems reviewed & are unremarkable except as noted in HPI and below ENT Reports nasal congestion (mild off and on .) Card Denies chest pain, Denies syncope, Denies irregular heart rhythm and Denies dyspnea on exertion Resp Denies cough, Denies dyspnea on exertion and Denies wheezing GI Reports no additional complaints Musc Reports no additional complaints Neuro Reports no additional complaints and Denies syncope Psych Reports no additional complaints Aller/Immun Denies wheezing Physical Exam Vital Signs: Last Vital Signs Pulse 76 07/15/24 14:32 BP 122/62 07/15/24 14:32 Pulse Ox 99 07/15/24 14:32 Oxygen Delivery Method Room Air 07/15/24 14:32 BMI result Body Mass Index 34.4 Const General: healthy appearing, comfortable, no acute distress, alert and awake Orientation/consciousness: patient oriented x3 HEENT Head: Yes normal to inspection General nose exam: No nasal polyps present and No nasal discharge present Face and sinus: Yes sinuses nontender Mouth: oropharynx normal Throat: Yes posterior oropharynx normal Eyes General: appearance normal, both eyes and all related structures Neck Neck: Yes normal visual inspection, Yes no lymphadenopathy, Yes trachea midline and Yes no JVD Thyroid: Thyroid normal Chest Chest palpation & inspection: normal inspection of the chest and normal palpation of entire chest wall Resp Auscultation: clear to auscultation bilaterally, no crackles and no wheezes Cardio Palpation: normal PMI Rate: regular rate Rhythm: regular rhythm Heart sounds: no gallops and no murmurs Peripheral pulses: Peripheral pulses 2+ throughout GI Palpation (GI): Soft to palpation, nontender, No hepatosplenomegaly present and no masses Auscultation: normal bowel sounds Back/Spine/Pelvis Thoracic/Lumbar Spine: thoracic and lumbar spine normal to inspection Skin General skin exam: no rashes or lesions noted Neuro General: patient oriented x3 and no focal motor deficits Cranial nerves: Yes CN's II-XII intact bilaterally Extrem General: Yes normal to inspection, Yes no clubbing, cyanosis or edema, Yes no calf tenderness and No venous stasis dermatitis Psych Appearance: grossly normal Speech and movement: Normal speech and movement present Results Reviewed Results Reviewed: COMPLIANCE REPORT WAS NOT AVAILABLE TODAY Assessment & Plan Assessment & Plan (1) Obesity (BMI 30-39.9): Comment: MODERATELY SEVERE OBESITY IS CHRONIC AND THE CAUSE FOR HER OBSTRUCTIVE SLEEP APNEA more related to her obstructive sleep apnea. she has not been able to lose much weight. Code(s): E66.9 - Obesity, unspecified Category: Medical Plan: DISCUSSED ABOUT THE WEIGHT. SHE NEEDS TO LOSE SOME WEIGHT BY RESTRICTING THE CALORIES INTAKE. SHE IS NOT ABLE TO DO MUCH EXERCISE. (2) LY on CPAP: Comment: She is a well known case of OBSTRUCTIVE SLEEP APNEA. Which has been well treated with the use of CPAP, pressure 8 cm via nasal pillows. Using CPAP regularly every night and sleeps well. Code(s): G47.33 - Obstructive sleep apnea (adult) (pediatric); Z99.89 - Dependence on other enabling machines and devices Category: Medical Plan: Advised to continue using the CPAP every night at least 6 hours per night. (3) Cough: Comment: mild intermittent , usually in AMs . It is not a big problem . Pulmonary Function Test was NORMAL . explained, and she is happy to know that . Code(s): R05 - Cough Category: Medical Plan: NO SPECIFIC ANTI COUGH MEDICINE NEEDED Coding Level of Care Code Est Pt Level 3 (02102) Diagnoses Obesity (BMI 30-39.9) E66.9 LY on CPAP G47.33; Z99.89 Cough R05
== END 2024-07-15 14:53 | disposition home or self-care (01) ==
PROVIDERS: PCP Internal Medicine; Visit Provider Internal Medicine
DX: E66.9 Obesity, unspecified (principal); G47.33 Obstructive sleep apnea (adult) (pediatric); Z99.89 Dependence on other enabling machines and devices; R05.9 Cough, unspecified
CPT/HCPCS: 99213

== ENCOUNTER → 2024-07-15 14:19 | Outpatient (BNVA) | payer OTHER, SELFPAY | PROVIDERS: PCP Internal Medicine; Visit Provider Internal Medicine | DX: E66.9 Obesity, unspecified (principal); G47.33 Obstructive sleep apnea (adult) (pediatric); R05.9 Cough, unspecified; Z68.34 Body mass index [BMI] 34.0-34.9, adult; Z99.89 Dependence on other enabling machines and devices | CPT/HCPCS: 99212 ==

== ENCOUNTER → 2024-08-03 13:45 | Outpatient (BNV) | payer OTHER, SELFPAY | PROVIDERS: PCP Internal Medicine; Visit Provider Internal Medicine | DX: Z12.31 Encounter for screening mammogram for malignant neoplasm of breast (principal) | CPT/HCPCS: 77063; 77067 ==

== ENCOUNTER 2024-08-03 13:48 | Outpatient (REF) | payer OTHER, SELFPAY ==
--- OUTSIDE RECORDS SUMMARY | 2024-08-03 15:18 | XMS_ITS | Encounter Summary ---
Author Organization [employer] Address [address] [facility] [address] [place] [address] Care Team Providers Care Bad Work Gatherer Name Role Phone Howie Shaw MD Primary Care Provide r Reason for Visit * Reason Comments Med Refill Encounter Details Date Type Department Care Team ([facility] st Contact Info) Description 04/26/[address] [facility] MEDICINE [address] [place] [address] Howie Shaw MD [address] [place] [address] Social History Tobacco Use Types Packs/Day Years Used Date Smoking Tobacco: Never Passive Smoke Exposure: Never Smokeless Tobacco: Never Alcohol Use Standard Drinks/Week Comments Never 0 (1 standard drink = 0.6 oz pur e alcohol) Depression Answer Date Recorded Patient Health Questionnaire-9 Score 0 01/29/2023 Housing Stability Answer Date Recorded What is your housing situation today? I have judah vazquez 04/18/[address] you li ve. Do you have problems with any of the following? None of the above 04/18/2023 Food Insecurity Answer Date Recorded Within the past 12 months, y ou worried that your food would run out before you got money to buy more: Never True 04/18/2023 Within the past 12 months,th e food you bought just didn't last and you didn't have enough money to get more: Never True Transportation Answer Date Recorded In the past 12 months, has l ack of transportation kept you from medical appts, meetings, work or from getting things needed for daily living? No 04/18/2023 Utilities Answer Date Recorded In the past 12 months, has t he electric, gas, oil or water company threatened to shut off services in your home? No 04/18/2023 Depression Answer Date Recorded Patient Health Questionnaire-2 Score 0 01/29/2023 Comments Unknown Sex and Gender Information Value Date Recorded Sex Assigned at Female 04/30/2022 10:14 AM EDT Legal Sex Female 10:14 AM EDT Gender Identity Female 04/30/2022 10:14 AM EDT Sexual Orientation Straight 04/30/2022 10 :14 AM EDT documented as of this encounter Plan of Treatment Upcoming Encounters Date Type Department Care Team (Late st Contact Info) Description 08/27/2024 3:00 PM EST Office Visit [facility] MED[facility]INE [address] [place] [address] Howie Shaw MD [address] [place] [address] documented as of this encounter Visit Diagnoses Not on filedocumented in this encounter Additional Health Concerns Assessment Noted Time PHQ-9 Depression Total Score: 0 01/30/20 23 3:04 PM EDT documented as of this encounter Care Teams Bad Work Gatherer Relationship Specialty Start Date End Date Howie Shaw MD [address] [place] [id number] PCP - General Internal Medicine 02/26/14 documented as of this encounter
--- OUTSIDE RECORDS SUMMARY | 2024-08-03 15:18 | XMS_ITS | Encounter Summary ---
Author Organization [employer] Address [address] [facility] 7t [place] [address] Care Team Providers Care Senior Quantity Surveyor Name Role Phone Howie Shaw MD Primary Care Provide r Reason for Visit * Reason Onset Date Comments Med Refill 04/23/2024 Encounter Details Date Type Department Care Team (Late st Contact Info) Description 04/23/2024 Refill [facility] MEDICINE [address] [place] [address] Collette Camejo FNP [address] [place] [address] Other hemorrhoids Social History Tobacco Use Types Packs/Day Years [...] 3:00 PM EST Office Visit [facility] MED[facility]INE [address] [place] [phone] Howie Shaw MD [address] [place] [address] documented as of this encounter Visit Diagnoses Diagnosis Other hemorrhoids documented in this encounter Additional Health Concerns Assessment Noted Time PHQ-9 Depression Total Score: 0 01/30/20 23 3:04 PM EDT documented as of this encounter Care Teams Senior Quantity Surveyor Relationship Specialty Start Date End Date Howie Shaw MD [address] [place] [id number] PCP - General Internal Medicine 02/26/14 documented as of this encounter
--- OUTSIDE RECORDS SUMMARY | 2024-08-03 15:18 | XMS_ITS | Encounter Summary ---
Author Organization [facility] Address [address] [place] [address] [address] [place] [address] Care Team Providers Care Knife Changer Name Role Phone Howie Shaw MD Primary Care Provide r Encounter Details Date Type Department Care Team (Latest Contact Info) Description 09/24/2018 Abstract [facility] CONVERSIONS Dental, Provider, DDS Social History Tobacco Use Types Packs/Day Years Used Date Smoking Tobacco: Never Assessed Comments Unknown Sex and Gender Information Value [...] Description 08/27/2024 3:00 PM EST Office Visit [facility] MEDICINE [address] [place] [address] Howie Shaw MD [address] [place] [address] documented as of this encounter Visit Diagnoses Not on filedocumented in this encounter Care Teams Knife Changer Relationship Specialty Start Date End Date Howie Shaw MD [address] [place] [address] PCP - General Internal Medicine 02/26/14 documented as of this encounter
--- OUTSIDE RECORDS SUMMARY | 2024-08-03 15:18 | XMS_ITS | Encounter Summary ---
Author Organization [employer] Address [address] [facility] 7[address] [place] [address] Care Team Providers Care Utilization Specialist Name Role Phone Howie Shaw MD Primary Care Provide r Encounter Details Date Type Department Care Team ([facility] st Contact Info) Description 06/25/2023 Telephone [facility] MEDICINE [address] [place] [address] Howie Shaw MD [address] [place] [address] Social History Tobacco Use Types Packs/Day Years [...] Description 08/27/2024 3:00 PM EST Office Visit [facility] MEDICINE [address] [place] [phone] Howie Shaw MD [address] [place] [phone] documented as of this encounter Visit Diagnoses Not on filedocumented in this encounter Additional Health Concerns Assessment Noted Time PHQ-9 Depression Total Score: 0 01/30/20 23 3:04 PM EDT documented as of this encounter Care Teams Utilization Specialist Relationship Specialty Start Date End Date Howie Shaw MD [address] [place] [id number] PCP - General Internal Medicine 02/26/14 documented as of this encounter
--- OUTSIDE RECORDS SUMMARY | 2024-08-03 15:18 | XMS_ITS | Clinical Summary ---
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 Name Role Phone Howie Shaw MD Primary Care Provide r Allergies No known active allergies Medications cetirizine (ZyrTEC) 10 MG tablet Take 1 tab po daily for 3 days 3 tablet 3 Active FREESTYLE LITE test stripIndications :Type 2 diabetes mellitus without complication, without long-term current use of insulin ([facility]) TEST BLOOD SUGAR TWICE DAILY 100 strip 5 4 Active FreeStyle lancetsIndicatio ns:Type 2 diabetes mellitus without complication, without long-term current use of insulin ([facility]) TEST BLOOD SUGAR TWICE DAILY 100 each 2 4 Active acetaminophen-co deine (Tylenol with Codeine #4) 300-60 MG tabletIndication s:Posterior left knee pain Take 1 tablet by mouth every 6 (six) hours if needed for moderate pain. 30 tablet 4 Active Diclofenac Sodium 1 % gel APPLY 2 GRAMS TOPICALLY IN THE MORNING, AT NOON, IN THE EVENING AND AT BEDTIME IF NEEDED FOR PAIN 100 g 3 4 Active acetaminophen (Mapap Arthritis Pain) 650 MG ER tablet TAKE 1 TABLET BY MOUTH EVERY 8 HOURS IF NEEDED FOR MILD PAIN 40 tablet 1 4 Active hydrocortisone (Anusol-HC) 2.5 % rectal creamIndications :Other hemorrhoids INSERT INTO THE RECTUM IN THE MORNING AND AT BEDTIME IF NEEDED FOR HEMORRHOIDS 28 g 1 4 Active Dulaglutide 0.75 MG/0.5ML solution auto-injectorInd ications:Type 2 diabetes mellitus without complication, without long-term current use of insulin ([facility]) Inject 0.75 mg under the skin 1 (one) time per week. 0.5 mL 6 4 Active zolpidem (Ambien) 10 MG tabletIndication s:Primary insomnia Take 1 tablet (10 mg) by mouth if needed at bedtime for sleep. 30 tablet 1 4 Active Active Problems Problem Noted Date Diagnosed Date Primary insomnia 04/30/2024 Assessment & Plan (04/30/2024 2:38 PM EDT): Pt recently lost her , grieving process, c/o insomnia We discussed good hygiene habits Start Ambien 10 mg po qhs Pain of left thigh 03/12/2023 Elevated LDL cholesterol level 02/12/2023 Assessment & Plan (04/30/2024 2:19 PM EDT): Lipid profile Lab Results Component Value Date TRIG 106 02/06/2023 CHOL 188 02/06/2023 LDLCHOLCAL 124 02/06/2023 HDL 43 02/06/2023 Will repeat Assessment & Plan (02/12/2023 1:10 PM EDT): LDL 124 Pt would like to try diet and exercise first to lowe her cholesterol She would be open to a statin if this fails Preventative health care 01/29/2023 Assessment & Plan (08/27/2023 11:13 AM EST): Mammogram: NL : 07/19/2023 Normal Pap Smear: at [facility] 11/27/2016 normal. Pt is being followed by [facility] Colonoscopy: 12/[address] Andreas bravo aside from Hemorrhoids; repeat in 10 years Assessment & Plan (01/29/2023 3:10 PM EDT): Mammogram: NL : 04/27/2022 Pap Smear: at [facility] 11/27/2016 normal. Pt is being followed by [facility] Colonoscopy: 12/[address] Andreas bravo aside from Hemorrhoids; repeat in 10 years Chronic pain of left knee 01/29/2023 Assessment & Plan (06/25/2023 1:04 PM EST): Malka Initially presented with c/o acute pain of both knees left > right in the absence of any injury X-rays 12/19/2022 of both of her knees and ankles aside from OA were otherwise unremarkable. Rx with tylenol and a Naprosyn prn as well as diclofenac gel and referred her to ortho for evaluation, seen by Dr. Beltre on 01/24/2023 Orthopaedic specialist recommended steroid injections which according to his note she declined and recommended follow up PRN. Pt's condition continued to worsen Soft tissue US showed marie cyst posterior left knee. She also c/o difficulty walking and c/o left knee locking Lab work included CBC, CPK, Lyme titers all negative MRI of her left knee and left thigh showed: Complex tear of the posterior horn of the medial meniscus with a prominent radial component and extrusion of the meniscal body. Moderate medial and mild patellofemoral/lateral compartment osteoarthritis. Small joint effusion with mild synovitis and a moderately sized Marie's cyst.Mild gluteus minimus and medius insertional tendinitis.Mild diffuse edema of the left quadriceps muscles which is nonspecific. No muscle tear. Mild gluteus medius/minimus insertional tendinitis. Patient missed the appointment with Ortho due to caring for her . but today tells me she will call and reschedule the appointment. I have discussed with pt the importance on following up on the MRI findings Assessment & Plan (03/21/2023 1:37 PM EDT): Patient is here for a follow up She was initially seen by Dr Frye for c/o acute pain of both knees left > right in the absence of any injury Dr Frye's thought was that this was Probable OA She ordered xrays 12/19/2022 of both of her knees and ankles that aide from OA were otherwise unremarkable. She was prescribed tylenol and a trial naprosyn BID x 5 days then prn as well as diclofenac gel. She also referred her to ortho for evaluation and was seen by Dr. Beltre on 01/24/2023 Orthopaedic specialist recommended steroid injections which according to his note she declined and recommended follow up PRN. Pt's condition has continued to worsen to the point that she is now unable to ambulate without the help of a cane. Soft tissue US showed marie cyst posterior left knee. On today's exam pt had great difficulty ambulating. She was very tender to palpation medially on her left thigh and left knee. No palpable masses, but her muscles on her medial thigh were very tender to palpation. No redness, no warmth. Her ROM was limited due to pain L>R Etiology ? At this point given her worsening and progression of her symptoms and her new onset of difficulty walking and c/o left knee locking we need to rule out internal derangement of her knee as well as an issue with her left thigh. Also when looking back at the notes shortly prior to her symptoms developing she had c/o a bug bite and was noted to have a rash although during that appointment the provider who examined her did not think this was related to lyme. Given the no tick was identified and the rash was not suggestive of it. Lab work included CBC, CPK, Lyme titers all negative Last visit I MRI of her left knee and left thigh Contacted Ortho for a follow up evaluation given worsening symptomatology Tylenol with codeine prescribed given severity of symptoms. Pt tells me she feels much better her knee pain has dramatically improved, still present but not as much. Ortho consult still pending. Assessment & Plan (03/12/2023 12:42 PM EDT): Patient is here for a follow up She was initially seen by Dr Frye for c/o acute pain of both knees left > right in the absence of any injury Dr Frye's thought was that this was Probable OA She ordered xrays 12/19/2022 of both of her knees and ankles that aide from OA were otherwise unremarkable. She was prescribed tylenol and a trial naprosyn BID x 5 days then prn as well as diclofenac gel. She also referred her to ortho for evaluation and was seen by Dr. Beltre on 01/24/2023 Orthopaedic specialist recommended steroid injections which according to his note she declined and recommended follow up PRN. Pt's condition has continued to worsen to the point that she is now unable to ambulate without the help of a cane. Soft tissue US showed marie cyst posterior left knee. On today's exam pt had great difficulty ambulating. She was very tender to palpation medially on her left thigh and left knee. No palpable masses, but her muscles on her medial thigh were very tender to palpation. No redness, no warmth. Her ROM was limited due to pain L>R Etiology ? At this point given her worsening and progression of her symptoms and her new onset of difficulty walking and c/o left knee locking we need to rule out internal derangement of her knee as well as an issue with her left thigh. Also when looking back at the notes shortly prior to her symptoms developing she had c/o a bug bite and was noted to have a rash although during that appointment the provider who examined her did not think this was related to lyme. Given the no tick was identified and the rash was not suggestive of it. Plan: Obtain a CBC, CPK, Lyme titers MRI of her left knee and left thigh Contacted Ortho for a follow up evaluation given worsening symptomatology Tylenol with codeine prescribed given severity of symptoms. Pt agreeable with plan Follow up with me after testing Assessment & Plan (01/29/2023 3:20 PM EDT): Patient recently seen by Dr Frye for c/o acute pain of both knees Her thought was that this was Probable OA She ordered xrays Prescribed tylenol and a trial naprosyn BID x 5 days then prn as well as diclofenac gel She also referred her to ortho for eval. The appointment was scheduled for 01/24/2023 X-rays on both knees showed mild orthoarthritis. Orthopaedic specialist recommended against steroid injections LUQ abdominal pain 01/29/2023 Assessment & Plan (01/29/2023 3:31 PM EDT): Recently seen for this by Dr Frye No mass palpated on her exam She was referred for abd US that was negative aside from steatosis Venous insufficiency 01/29/2023 Assessment & Plan (01/29/2023 3:34 PM EDT): Compressive stockings recommended Referred to vascular Calcaneal spur of both feet 08/22/2022 Overview (08/22/2022): XR 01/04/22: Large bilateral calcaneal spurs. Mild degenerative changes at the navicular cuneiform joints bilaterally and right first MTP joint. Bilateral accessory perineal ossicles. -Referred to podiatry 08/22/22 Assessment & Plan (01/29/2023 3:14 PM EDT): She was referred for xrays As well as to podiatry for eval Assessment & Plan (08/22/2022 6:46 PM EST): -Encouraged supportive footwear and symptomatic measures -Referred to podiatry and PT for further eval Follow up as needed Type 2 diabetes mellitus without complication Overview (08/22/2022): Lab Results Component Value Date HGBA1C 6.6 (A) 08/22/2022 Well controlled, continue with lifestyle interventions Assessment & Plan (04/30/2024 2:34 PM EDT): Pt is here for a follow up regarding her Diabetes Mellitus DM controlled She is on Trulicity 0.75 once a week, She was on a regimen of Metformin XR 500 mg po q pm. Unfortunately she developed hives from it and it was then discontinued. It is unclear that this is the culprit since pt still develops hives off the Metformin . Hgb A1c 04/30/2024: 7.5 from 6.3 Eye exam 11/07/2023 Dr. Milina Microalbumin 08/05/2020 was 0.2 Pt not on an LINDA inhibitor/ARB will repeat Plan: Continue Trulicity 0.75 once a week 3 month f/u Pt advised to: adhere to diabetic diet check your blood sugars regularly check your feet on a daily basis Assessment & Plan (11/26/2023 12:05 PM EDT): Pt is here for a follow up regarding her Diabetes Mellitus DM controlled She is on Trulicity 0.75 once a week, She was on a regimen of Metformin XR 500 mg po q pm. Unfortunately she developed hives from it and it was then discontinued. It is unclear that this is the culprit since pt still develops hives off the Metformin . Hgb A1c 11/26/2023: 6.[address] Tripp[address] Microalbumin 08/05/2020 was 0.2 Pt not on an LINDA inhibitor/ARB will repeat Plan: Continue Trulicity 0.75 once a week 3 month f/u Pt advised to: adhere to diabetic diet check your blood sugars regularly check your feet on a daily basis Assessment & Plan (08/27/2023 11:07 AM EST): Pt is here for a follow up regarding her Diabetes Mellitus DM controlled She is on Trulicity 0.75 once a week, She was on a regimen of Metformin XR 500 mg po q pm. Unfortunately she developed hives from it and it was then discontinued. It is unclear that this is the culprit since pt still develops hives off the Metformin . Hgb A1c 08/27/2023: 6.[address] Tripp[address] Microalbumin 08/05/2020 was 0.2 Pt not on an LINDA inhibitor/ARB will repeat Plan: Continue Trulicity 0.75 once a week 3 month f/u Pt advised to: adhere to diabetic diet check your blood sugars regularly check your feet on a daily basis Assessment & Plan (03/21/2023 1:32 PM EDT): Pt is here for a follow up regarding her Diabetes Mellitus She is on Trulicity Blood glucose at home average 123 Hgb A1c 01/29/2023 : 7.3 from a previous one 6.6 She was on a regimen of Metformin XR 500 mg po q pm. Unfortunately she developed hives from it and it was then discontinued. It is unclear that this is the culprit since pt still develops hives off the Metformin . Eye exam 2017 Dr Tripp. Microalbumin 08/05/2020 was 0.2 Pt not on an LINDA inhibitor/ARB Plan: Continue Trulicity 0.75 once a week 3 month f/u Pt advised to: adhere to diabetic diet check your blood sugars regularly check your feet on a daily basis Assessment & Plan (02/12/2023 1:02 PM EDT): Pt is here for a follow up regarding her Diabetes Mellitus Hgb A1c 01/29/2023 : 7.3 from a previous one 6.6 She was on a regimen of Metformin XR 500 mg po q pm. Unfortunately she developed hives from it and it was then discontinued. It is unclear that this is the culprit since pt still develops hives off the Metformin . Previous visit started on Trulicity 0.75 once a week Eye exam 2017 Dr Tripp. Microalbumin 08/05/2020 was 0.2 Pt not on an LINDA inhibitor/ARB Plan: Start Trulicity 0.75 once a week 4 month f/u Pt advised to: adhere to diabetic diet check your blood sugars regularly check your feet on a daily basis Assessment & Plan (01/29/2023 3:26 PM EDT): Pt is here for a follow up regarding her Diabetes Mellitus She remains Controlled with diet alone Blood glucose at home average 154 Hgb A1c 01/29/2023 : 7.3 from a previous one 6.6 She was on a regimen of Metformin XR 500 mg po q pm. Unfortunately she developed hives from it and it was then discontinued. It is unclear that this is the culprit since pt still develops hives off the Metformin . Eye exam 2016 Dr Tripp. Microalbumin 08/05/2020 was 0.2 Pt not on an LINDA inhibitor/ARB Plan: Start Trulicity 0.75 once a week 4 month f/u Pt advised to: adhere to diabetic diet check your blood sugars regularly check your feet on a daily basis Carpal tunnel syndrome 05/20/2012 Chronic headache disorder 05/20/2012 Depressive disorder 05/20/2012 Class 1 obesity due to exces s calories with serious comorbidity and body mass index (BMI) of 32.0 to 32.9 in adult 05/20/2012 Assessment & Plan (08/27/2023 11:09 AM EST): Patient has been counseled and educated about diet and exercise. Patient has been able to loose weight I congratulated her Patient has comorbidity of: DM Assessment & Plan (01/29/2023 3:04 PM EDT): Patient has been counseled and educated about diet and exercise. Personal goal of weight loss discussedPatient has comorbidity of: DM Obstructive sleep apnea syndrome 05/20/2012 Assessment & Plan (04/30/2024 2:16 PM EDT): Dx in 07/28/08 she had been using CPAP ever since with good resolution of her chronic headaches. Pt back under the care of Dr. Fernandez last note 01/2024 Pt reports her Cpap machine is working Doing well Assessment & Plan (11/26/2023 3:57 PM EDT): Dx in 07/28/08 she had been using CPAP ever since with good resolution of her chronic headaches. Pt used to be under the care of Dr. Fernandez last note 09/06/2020 Pt reports her Cpap machine is not working Plan: Repeat Sleep Study Assessment & Plan (08/27/2023 11:15 AM EST): Dx in 07/28/08 she has been using CPAP ever since with good resolution of her chronic headaches. Pt under the care of Dr. Fernandez 09/06/2020 as well. Pt has a Cpap machine. uses it with good results Assessment & Plan (01/29/2023 3:08 PM EDT): Dx in 07/28/08 she has been using CPAP ever since with good resolution of her chronic headaches. Pt under the care of Dr. Fernandez 09/06/2020 as well. Pt has a Cpap machine. uses it with good results Resolved Problems Problem Noted Date Diagnosed Date Resolved Date COVID-19 06/25/2023 08/27/2023 Assessment & Plan (06/25/2023 1:06 PM EST): Towards the end of the conversation she mentioned that she Tested positive for Covid Today. Her symptoms are mainly generalized malaise, so far no cough, no sob, no fever Given the fact that she is diabetic she qualifies for Paxlovid Plan: Conservative measures Asked to call or come in if she develops severe cough, fever, sob Will send Paxlovid x 5 days Rash of neck 12/11/2022 12/19/2022 Assessment & Plan (12/11/2022 5:15 PM EDT): Likely due to a bug bite. -No evidence of superinfection. -Trial of hydrocortisone 2.5% cream and a few days of cetrizine. -Discontinue topical ointment. -Seek medical attention if symptoms worsen or do not improve. -Pt agrees with the plan. Impaired glucose tolerance 05/20/2012 0 12/19/2022 Encounters Date Type Department Care Team Description 06/16/2024 Telephone [facility] [address] [place] [id number] Kelley Hughes MA Aug.Recall 05/07/2024 2:00 PM EST Clinical Support [facility] [address] [place] [address] Isabella Monroy LPN Encounter for immunization (Primary Dx) 05/07/2024 Travel from Last 3 Months Immunizations Name Administration Dates Next Due Hep B, adult 06/04/2003,03/26/2003 Influenza injectable quadriv alent preservative free 03/21/2023,06/06/2021,04/08/2020,2018,04/18/2017 Influenza, IIV3, injectable 04/08/2014, 1 Influenza, Split (incl. [place] antigen) 09/04/2013 Influenza, seasonal, injecta ble, preservative free 05/07/2024,05/04/2012 TD (adult), 2 Lf tetanus tox oid, preservative free, adsorbed 10/08/2002 Tdap 01/12/2016 Social History Tobacco Use Types Packs/Day Years Used Date Smoking Tobacco: Never Passive Smoke Exposure: Never Smokeless Tobacco: Never Tobacco Cessation:Counseling Given: Not Answered Alcohol Use Standard Drinks/Week Comments Never 0 (1 standard drink = 0.6 oz pur e alcohol) Alcohol Answer Date Recorded Frequency of Alcohol Consumption Not on file 04/30/2024 Average Number of Drinks Not on file 024 Frequency of Binge Drinking Not on file 04/02 Score 0 04/30/2024 Depression Answer Date Recorded Patient Health Questionnaire-9 Score 5 04/30/2024 Patient Health Questionnaire-9 Score 5 04/30/2024 Last PHQ-9: Questionnaire Data Not on file 1 Housing Stability Answer Date Recorded What is your housing situation today? I have judah vazquez 04/30/[address] you li ve. Do you have problems with any of the following? None of the above 04/30/2024 Food Insecurity Answer Date Recorded Within the past 12 months, y ou worried that your food would run out before you got money to buy more: Never True 04/30/2024 Within the past 12 months,th e food you bought just didn't last and you didn't have enough money to get more: Never True Transportation Answer Date Recorded In the past 12 months, has l ack of transportation kept you from medical appts, meetings, work or from getting things needed for daily living? No 04/30/2024 Utilities Answer Date Recorded In the past 12 months, has t he electric, gas, oil or water company threatened to shut off services in your home? No 04/30/2024 Depression Answer Date Recorded Patient Health Questionnaire-2 Score 1 04/30/2024 Internet Access Answer Date Recorded Internet Access Q1 Yes 04/30/2024 Internet Access Q2 Not on file 04/30/2024 Comments Unknown Sex and Gender Information Value Date Recorded Sex Assigned at Female 04/30/2022 10:14 AM EDT Legal Sex Female 10:14 AM EDT Gender Identity Female 04/30/2022 10:14 AM EDT Sexual Orientation Straight 04/30/2022 10 :14 AM EDT Last Filed Vital Signs Vital Sign Reading Time Taken Comments Blood Pressure 130/78 04/30/2024 2:19 PM EDT Pulse 94 04/30/2024 2:19 PM EDT Temperature 36.3 ??C (97.3 ??F) 04/30/2024 2:19 PM ED T Respiratory Rate 20 04/30/2024 2:19 PM EDT Oxygen Saturation 98% 04/30/2024 2:19 PM EDT Inhaled Oxygen Concentration - - Weight 87.9 kg (193 lb 12.8 oz) 04/30/2024 2:19 PM EDT Height 160 cm (5' 3 ) 04/30/2024 2:19 PM EDT Body Mass Index 34.33 04/30/2024 2:19 PM EDT Plan of Treatment Upcoming Encounters Date Type Department Care Team (Late st Contact Info) Description 08/27/2024 3:00 PM EST Office Visit [facility] [address] [place] [address] Howie Shaw MD [address] [place] [address] Health Maintenance Due Date Last Done Comments CT Colonography 1960 FIT DNA/Cologuard 1960 FIT 1960 FOBT 1960 HIV Screening 1960 Sigmoidoscopy 1960 Pneumococcal Vaccine: Pediatrics (0 to 5 Years) and At-Risk Patients (6 to 49) Years) (1 of 2 - PCV) 1966 Hepatitis C Screening 1978 Pneumococcal Vaccine: 50+ Years (1 of 2 - PCV) 10/08/1979 Hepatitis B Vaccines (3 of 3 - 19+ 3-dose series) 09/24/2003 06/04/2003, 03/26/2003 Zoster Vaccines (1 of 2) 2010 Diabetes: Foot Exam 08/22/2023 08/22/2022, 08/22/2022, 08/22/2022, Additional history exists Lipid Panel 02/07/2024 02/06/2023, 03/0 03/2022, 08/05/2020 COVID-19 Vaccine ( season) 2024 11/22/2020, 10/27/2020 Mammogram 04/27/2024 07/19/2023, 04/01, 03/08/2020, Additional history exists Diabetes: Hemoglobin A1C 07/31/2024 024, 11/26/2023, 08/27/2023, Additional history exists Diabetes: Urine Protein Screening 08/27/2024 08/27/2023, 09/06/2021, 08/05/2020 Cervical Cancer Screening 11/18/2024 HPV/Cotest 11/18/2024 11/19/2019 Pap Smear 11/18/2024 11/19/2019 Alcohol/Substance Use Screening 04/30/2025 04/30/2024 Depression Screening 04/30/2025 04/30/2024, 04/30/20 24 SDOH Screening 04/30/2025 04/30/2024 Tobacco Screening 04/30/2025 04/30/2024 Eye Exam 11/06/2025 11/07/2023, 05/0 03/2024, 11/07/2023, Additional history exists DTaP/Tdap/Td Vaccines (2 - Td or Tdap) 01/11/2026 01/12/2016, 10/08/2002 Colonoscopy 01/22/2033 01/22/2023 Colorectal Cancer Screening 01/22/2033 RSV Patients and Patients Aged 60 years or older (1 - 1-dose 75+ series) 10/08/2035 Influenza Vaccine Completed 05/07/2024, , 06/06/2021, Additional history exists HIB Vaccines Aged Out No longer eligi ble based on patient's age to complete this topic HPV Vaccines Aged Out No longer eligi ble based on patient's age to complete this topic Hepatitis A Vaccines Aged Out No long er eligible based on patient's age to complete this topic IPV Vaccines Aged Out No longer eligi ble based on patient's age to complete this topic Meningococcal Vaccine Aged Out No martha michel eligible based on patient's age to complete this topic RSV under 20 months Aged Out No longe r eligible based on patient's age to complete this topic Rotavirus Vaccines Aged Out No longer eligible based on patient's age to complete this topic Procedures Procedure Name Priority Date/Time Associated Diagnosis Comments POCT GLYCATED HEMOGLOBIN, TOTAL Routine 04/30/2024 2:43 PM EDT Type 2 diabetes mellitus without complication, without long-term current use of insulin (CMS/HCC) ALBUMIN, RANDOM URINE W/CREATININE Routine 08/27/2023 12:00 AM EST Type 2 diabetes mellitus without complication, without long-term current use of insulin (CMS/HCC) BI MAMMOGRAM SCREENING TOMOSYNTHESIS BILATERAL Routine 07/19/2023 12:40 PM EST LIPID PANEL WITH REFLEX TO DIRECT LDL Routine 02/06/2023 9:06 AM EDT Type 2 diabetes mellitus without complication, without long-term current use of insulin (CMS/HCC) HM COLONOSCOPY Routine 01/22/2023 HM PAP/HPV Routine 11/19/2019 from Last 3 Months or Most Recently Relevant to Health Maintenance Results * (ABNORMAL) POCT HGB A1C (04/30/2024 2:43 PM EDT) Hemoglobin A1C 7.5(A) 4.0 - 6.0 % QC Media Lot # [id number] Lot# Expiration Date Blood 04/30/2024 2:43 PM EDT Howie Smith MD POINT OF CARE TEST EN TER/EDIT ORDERABLES Final Result * Albumin, Random Urine W/Creatinine (08/27/2023 12:00 AM EST) Creatinine, Urine 170.50 mg/dL [facility] Microalbumin Urine 10.0 mg/L [facility] Microalbum Creatinine Ratio Ur 5.8 <30 ug/mg cr [facility] Comment:Albumin/Creatinine R atio Reference Ranges: Normal: < 30 ug/mg creatinine Microalbuminuria: 30 - 300 ug/mg creatinineClinical Albuminuria: > 300 ug/mg creatinine Urine (Urine, Random) 08/27/2023 08/27/2023 Howie Smith MD LAB URINE ORDERABLES Final Result [facility] [address] [place] [phone] * BI Mammogram Screening Tomosynthesis Bilateral (07/19/2023 12:40 PM EST) Anatomical Region Laterality Modality Breast Bilateral Mammography 07/19/2023 12:4 0 PM EST Narrative 08/03/2023 6:29 AM EST ? [facility] ? [address] ?[place] [address] ? Mammography Report ? Signed ? Patient: Drew,Johanna ?MR#: [id number] ? : 1960 ?Acct:[id number] ? Age/Sex: 62 / F ?ADM Date: 07/19/23 ? Loc: HO.MAMMO ? Attending Dr: Howie Adams MD ? Ordering Physician: Howie Adams MD ?Resu ?? lts: 1Negative ? Date of Service: 07/19/23 ?Follow Up: 1 Year From Orig ?? inal Mammogram ? Procedure(s): MM tomosynthesis screening BI ?? Accession Number(s): [id number] ? cc: Howie Adams MD ? EXAMINATION: ?? MM SCREENING DIGITAL BREAST TOMOSYNTHESIS, BILATERAL ? CLINICAL INFORMATION: ? Screening. Asymptomatic. ? COMPARISON: ?? Mammography: This study is compared with prior exams dating back to ?? 2018. ? TECHNIQUE: ?? Digital breast tomosynthesis is performed in both the craniocaudal and ?? mediolateral oblique views along with computer-aided detection (CAD). ?? Synthesized 2D images are generated from the tomosynthesis. ? FINDINGS: ?? There are scattered areas of fibroglandular density (ACR BI-RADS breast ?? composition Category b). ? There are no significant masses, abnormal calcifications, or other ?? abnormalities. ? MM/MM tomosynthesis screening BI ?? IMPRESSION: ?? No mammographic evidence of malignancy. ? ASSESSMENT: ? BI-RADS BI-RADS 1 - Negative ? RECOMMENDATION: ?? Routine annual mammography screening. ? 1 year F/U ? This examination should not preclude the clinical evaluation of a ?? suspicious palpable abnormality. ? This patient's information was entered into a reminder system with a ?? target due date for their next mammogram. ? Dictated By: ?Lucía Odell MD ? Signed By: ?<Electronically signed by Lucía Odell MD in OV> ? 08/03/23625 ? DD/ 1240 ? TD/TT: ? Sports Athletic Trainer: ? Procedure Note Alexandra, Image - 08/03/2023 [facility] [address] [place] [address] Mammography Report Signed Patient: Fahad Drew#: [id number] : 1960cct:[id number] Age/Sex: 62 / FADM Date: 07/19/23 Loc: HO.MAMMO Attending Dr: Howie Adams MD Ordering Physician: Howie Adams MDResu lts: 1Negative Date of Service: 07/19/23Follow Up: 1 Year From Orig inal Mammogram Procedure(s): MM tomosynthesis screening BI Accession Number(s): [id number] cc: Howie Adams MD EXAMINATION: MM SCREENING DIGITAL BREAST TOMOSYNTHESIS, BILATERAL CLINICAL INFORMATION: Screening. Asymptomatic. COMPARISON: Mammography: This study is compared with prior exams dating back to 2018. TECHNIQUE: Digital breast tomosynthesis is performed in both the craniocaudal and mediolateral oblique views along with computer-aided detection (CAD). Synthesized 2D images are generated from the tomosynthesis. FINDINGS: There are scattered areas of fibroglandular density (ACR BI-RADS breast composition Category b). There are no significant masses, abnormal calcifications, or other abnormalities. MM/MM tomosynthesis screening BI IMPRESSION: No mammographic evidence of malignancy. ASSESSMENT: BI-RADS BI-RADS 1 - Negative RECOMMENDATION: Routine annual mammography screening. 1 year F/U This examination should not preclude the clinical evaluation of a suspicious palpable abnormality. This patient's information was entered into a reminder system with a target due date for their next mammogram. Dictated By: Lucía Odell MD Signed By: <Electronically signed by Lucía Odell MD in OV> 08/03/23 0626 DD/ 1240 TD/TT: Sports Athletic Trainer: us Howie Smith MD IMG BI PROCEDURES Fin al Result * Lipid Panel with Reflex to Direct LDL (02/06/2023 9:06 AM EDT) Triglycerides 106 mg/dL [facility] Comment:Desirable Triglyceri de: less than 150 mg/dLBorderline High Triglyceride 150-199 mg/dLHigh Triglyceride: 200-499 mg/dLVery High Triglyceride: greater than or equal to 5OO mg/dL Cholesterol 188 mg/dL [facility] Comment:Desirable Cholestero l: less than 200 mg/dLBorderline High Cholesterol: 200-239 mg/dLHigh Cholesterol: greater than 239 mg/dL LDL Cholesterol Calculated 124 mg/dl [facility] Comment:Desirable LDL: less than 100 mg/dLNear Optimal/Above Optimal LDL: 110- 129 mg/dLBorderline High LDL: 130-159 mg/dLHigh LDL: 160-189 mg/dLVery High LDL: greater than or equal to 190 mg/dL HDL Cholesterol 43 mg/dL [facility] Comment:Desirable HDL: great er than 40 mg/dL Note: This HDL assay may give artificially low results in patients with liver disease. Blood 02/06/2023 9:06 AM EDT 02/06/2023 11:24 AM EDT Howie Smith MD LAB BLOOD ORDERABLES Final Result [facility] [address] [place] [phone] * Colonoscopy (01/22/2023) Colonoscopy Normal Normal Comment:Dr Sang hernandez Historical Provider HEALTH MAINTENANCE Final Result * Pap Smear (11/19/2019) Pap Negative for intraephithelial lesion or malignancy Negative for intraephithelial lesion or malignancy, Other HPV Undetected Undetected, Indeterminate, Quantitative, Not Detected Historical Provider HEALTH MAINTENANCE Final Result from Last 3 Months or Most Recently Relevant to Health Maintenance Insurance [facility] Member Subscriber Plan / Payer (Ef fective 2020-Present) Name:Johanna Drew Relation to Subscriber:Self Name:Johanna Drew Payer ID:Not on file Group ID:[id number] Type:Not on file Address: [address] STANDARD Care Teams Salvage Repairer Relationship Specialty Start Date End Date Howie Shaw MD [address] [place] [id number] PCP - General Internal Medicine 02/26/14
--- OUTSIDE RECORDS SUMMARY | 2024-08-03 15:18 | XMS_ITS | Encounter Summary ---
Author Organization [employer] Address [address] [facility] 7t [place] [address] Care Team Providers Care Polytechnic Teacher Name Role Phone Howie Shaw MD Primary Care Provide r Reason for Visit * Reason Onset Date Comments Med Refill 04/23/2024 Encounter Details Date Type Department Care Team (Late st Contact Info) Description 04/23/2024 Refill [facility] [address] [place] [address] Nafisa Frye DO [address] [place] [address] Social History Tobacco Use Types Packs/Day Years [...] Description 08/27/2024 3:00 PM EST Office Visit [facility] [address] [place] [phone] Howie Shaw MD [address] [place] [phone] documented as of this encounter Visit Diagnoses Not on filedocumented in this encounter Additional Health Concerns Assessment Noted Time PHQ-9 Depression Total Score: 0 01/30/20 23 3:04 PM EDT documented as of this encounter Care Teams Polytechnic Teacher Relationship Specialty Start Date End Date Howie Shaw MD [address] [place] [phone] PCP - General Internal Medicine 02/26/14 documented as of this encounter
--- OUTSIDE RECORDS SUMMARY | 2024-08-03 15:18 | XMS_ITS | Encounter Summary ---
Author Organization [facility] Address [address] [place] [address] 7t [place] [address] Care Team Providers Care Tip Length Checker Name Role Phone Howie Shaw MD Primary Care Provide r Encounter Details Date Type Department Care Team (Latest Contact Info) Description 06/01/2021 Abstract [facility] CONVERSIONS Dental, Provider, DDS Social History Tobacco [...] 3:00 PM EST Office Visit [facility] [address] [place] [address] Howie Shaw MD [address] [place] [address] documented as of this encounter Visit Diagnoses Not on filedocumented in this encounter Care Teams Tip Length Checker Relationship Specialty Start Date End Date Howie Shaw MD [address] [place] [address] PCP - General Internal Medicine 02/26/14 documented as of this encounter
--- OUTSIDE RECORDS SUMMARY | 2024-08-03 15:18 | XMS_ITS | Encounter Summary ---
Author Organization [employer] Address [address] [facility] 7t [place] [address] Care Team Providers Care Staging Technician Name Role Phone Howie Shaw MD Primary Care Provide r Reason for Visit * Reason Comments Med Refill Encounter Details Date Type Department Care Team ([facility] st Contact Info) Description 05/26/2023 Refill [facility] [address] [place] [address] Nafisa Frye, [address] [place] [address] Social History Tobacco Use Types Packs/Day Years [...] Description 08/27/2024 3:00 PM EST Office Visit [facility] [address] [place] [address] Howie Shaw MD [address] [place] [address] documented as of this encounter Visit Diagnoses Not on filedocumented in this encounter Additional Health Concerns Assessment Noted Time PHQ-9 Depression Total Score: 0 01/30/20 23 3:04 PM EDT documented as of this encounter Care Teams Staging Technician Relationship Specialty Start Date End Date Howie Shaw MD [address] [place] [phone] PCP - General Internal Medicine 02/26/14 documented as of this encounter
--- OUTSIDE RECORDS SUMMARY | 2024-08-03 15:18 | XMS_ITS | Encounter Summary ---
Author Organization [employer] Address [address] [facility] 7t [place] [address] Care Team Providers Care Cosmetics Demonstrator Name Role Phone Howie Shaw MD Primary Care Provide r Reason for Visit * Reason Onset Date Comments Med Refill 04/23/2024 Encounter Details Date Type Department Care Team (Late st Contact Info) Description 04/23/2024 Refill [facility] [address] [place] [address] Ashleigh Wilkins MD 230 [place] [address] Social History Tobacco Use Types Packs/Day Years [...] Description 08/27/2024 3:00 PM EST Office Visit [facility] [address] [place] [phone] Howie Shaw MD [address] [place] [phone] documented as of this encounter Visit Diagnoses Not on filedocumented in this encounter Additional Health Concerns Assessment Noted Time PHQ-9 Depression Total Score: 0 01/30/20 23 3:04 PM EDT documented as of this encounter Care Teams Cosmetics Demonstrator Relationship Specialty Start Date End Date Howie Shaw MD [address] [place] [address] PCP - General Internal Medicine 02/26/14 documented as of this encounter
== END 2024-08-03 13:49 | disposition home or self-care (01) ==
LOC: HO.MAMMO 13:48
PROVIDERS: PCP Internal Medicine; Visit Provider Internal Medicine
DX: Z12.31 Encounter for screening mammogram for malignant neoplasm of breast (principal)
CPT/HCPCS: 77063; 77067

== ENCOUNTER 2024-08-25 12:31 | Outpatient (REF) | payer OTHER, SELFPAY ==
[2024-08-25 13:43] LABS: Creatinine Urine 274.51 mg/dL; Microalbum/Creatinine Ratio Ur 8.7 ug/mg cr (<30)
[2024-08-25 14:13] LABS: Alanine Aminotransferase 25 U/L (0-31); Albumin Level 3.9 g/dL (3.5-5.0); Alkaline Phosphatase 115 U/L (39-117); Anion Gap 12 (12-20); Aspartate Amino Transferase 20 U/L (5-31); Bilirubin Total 0.4 mg/dL (0.0-1.0); Blood Urea Nitrogen 15 mg/dL (9-16); Calcium 9.2 mg/dL (8.4-10.2); Carbon Dioxide 26 mmol/L (22-29); Chloride 107 mmol/L (96-108); Cholesterol 167 mg/dL (<200); Estimated Glomerular Filt Rate > 60; Glucose Random 112 mg/dL (60-115); HDL Cholesterol 42 mg/dL (>40); LDL Cholesterol Calculated 109 mg/dL (<100); Potassium 4.6 mmol/L (3.3-5.1); Sodium 140 mmol/L (135-145); Total Protein 8.4 g/dL (6.5-8.0); Triglycerides 81 mg/dL (<150)
--- OUTSIDE RECORDS SUMMARY | 2024-08-25 15:13 | XMS_ITS | Encounter Summary ---
Author Organization [employer] Address [address] [facility] 7 [place] [address] Care Team Providers Care Wharfinger Chief Name Role Phone Howie Shaw MD Primary Care Provide r Reason for Visit * Reason Onset Date Comments Referral 08/18/2024 Encounter Details Date Type Department Care Team ([facility] st Contact Info) Description 08/18/2024 Telephone [facility] [address] [place] [address] Howie Shaw MD [address] [place] [address] Referral Social History Tobacco Use Types Packs/Day Years Used Date Smoking Tobacco: Former Cigarettes Passive Smoke Exposure: Never Smokeless Tobacco: Never [...] housing situation today? I have judah vazquez 08/14/[address] you li ve. Do you have problems with any of the following? Pests such as bugs, ants, or mice 08/14/2024 Food Insecurity Answer Date Recorded Within the [...] AM EDT documented as of this encounter Miscellaneous Notes * Telephone Encounter - Mayte Mcdaniel [place] - 08/18/2024 2:01 PM EST Received fax back from [facility] in regards to referral for Sleep Medicine, they stated that the pt hasn't been seen in this office. LB documented in this encounter Plan of Treatment Upcoming Encounters Date Type Department Care Team (Late st Contact Info) Description 08/27/2024 3:00 PM EST Office Visit [facility] [address] [place] [address] Howie Shaw MD [address] [place] [address] documented as of this encounter Visit Diagnoses Not on filedocumented in this encounter Additional Health Concerns Assessment Noted Time PHQ-9 Depression Total Score: 5 04/30/20 24 2:46 PM EDT documented as of this encounter Care Teams Wharfinger Chief Relationship Specialty Start Date End Date Howie Shaw MD [address] [place] [address] PCP - General Internal Medicine 02/26/14 documented as of this encounter
--- OUTSIDE RECORDS SUMMARY | 2024-08-25 15:13 | XMS_ITS | Encounter Summary ---
Author Organization [employer] Address [address] [place] [address] 7 [place] [address] Care Team Providers Care Loading Inspector Name Role Phone Howie Shaw MD Primary Care Provide r Reason for Visit * Reason Comments Pre-visit Planning SDOH Screening posit harper and Tobacco screening negative Encounter Details Date Type Department Care Team ([facility] st Contact Info) Description 08/14/2024 Patient Outreach [facility] [address] [place] [address] Howie Shaw MD [address] [place] [address] Pre-visit Planning (SDOH Screening positive and Tobacco screening negative) Social History Tobacco Use Types Packs/Day Years [...] AM EDT documented as of this encounter Progress Notes * Kelly Chapman - 08/14/2024 10:09 AM EST CYNTHIA Flowers placed successful outbound call to patient for pre-visit planning. Patient name and confirmed. Patient confirms appt date and time, and has transportation arrangements. Biggest concern for appointment at this time is no concerns. Patient advised to bring to appointment a photo id and insurance card. Appropriate screenings completed in anticipation of appointment. SDOH positive. Patient looking for assistance with pest control: Cockroaches. Referral will be placed. documented in this encounter Plan of Treatment Upcoming Encounters Date Type Department Care Team (Late st Contact Info) Description 08/27/2024 3:00 PM EST Office Visit [facility] [address] [place] [address] Howie Shaw MD [address] [place] [address] documented as of this encounter Visit Diagnoses Not on filedocumented in this encounter Additional Health Concerns Assessment Noted Time PHQ-9 Depression Total Score: 5 04/30/20 24 2:46 PM EDT documented as of this encounter Care Teams Loading Inspector Relationship Specialty Start Date End Date Howie Shaw MD [address] [place] [address] PCP - General Internal Medicine 02/26/14 documented as of this encounter
--- OUTSIDE RECORDS SUMMARY | 2024-08-25 15:13 | XMS_ITS | Encounter Summary ---
Author Organization [employer] Address [address] [facility] 7t [place] [address] Care Team Providers Care Real Estate Subagent Name Role Phone Howie Shaw MD Primary Care Provide r Encounter Details Date Type Department Care Team ([facility] st Contact Info) Description 08/12/2024 3:20 PM EST Office Visit [facility] [address] [place] [address] Josh Thomas MD [address] [place] [address] Influenza A (Primary Dx) Social History Tobacco Use Types Packs/Day Years [...] AM EDT documented as of this encounter Last Filed Vital Signs Vital Sign Reading Time Taken Comments Blood Pressure 144/78 08/12/2024 3:05 PM EST Pulse 82 08/12/2024 3:05 PM EST Temperature 36.8 ??C (98.2 ??F) 08/12/2024 3:05 PM ES T Respiratory Rate 17 08/12/2024 3:05 PM EST Oxygen Saturation 98% 08/12/2024 3:05 PM EST Inhaled Oxygen Concentration - - Weight 85.4 kg (188 lb 3.2 oz) 08/12/2024 3:05 P M EST Height - - Body Mass Index 33.34 04/30/2024 2:19 PM EDT documented in this encounter Progress Notes * Josh Thomas MD - 08/12/2024 3:20 PM EST Subjective Patient ID: Johanna Drew is a 63 y.o. female. Pick Pack Worker: Michael SNIDER 5 days ago Joahnna had onset of tactile fever, fever resolved 2 days ago, runny nose, dry cough, headaches. Had diarrhea and decreased appetite 3 days ago that resolved No n/v/d. Drinking liquids well, appetite has improved. Tried Robitussin, ibuprofen, Tylenol Lives alone. Not employed. Quit smoking > 20 years ago. Patient Active Problem List Diagnosis Carpal tunnel syndrome Chronic headache disorder Depressive disorder Class 1 obesity due to excess calories with serious comorbidity and body mass index (BMI) of 32.0 to 32.9 in adult Obstructive sleep apnea syndrome Type 2 diabetes mellitus without complication (CMS/HCC) Calcaneal spur of both feet Preventative health care Chronic pain of left knee LUQ abdominal pain Venous insufficiency Elevated LDL cholesterol level Pain of left thigh Primary insomnia The following portions of the chart were reviewed this encounter and updated as appropriate: Tobacco Allergies Meds Problems Med Hx Surg Hx Fam Hx Review of Systems Constitutional: Positive for appetite change and fever. HENT: Positive for rhinorrhea. Respiratory: Positive for cough. Negative for shortness of breath. Cardiovascular: Negative for chest pain. Gastrointestinal: Positive for diarrhea. Negative for abdominal pain. Skin: Negative for rash. Neurological: Positive for headaches. Objective Physical Exam Constitutional: Appearance: Normal appearance. HENT: Right Ear: Tympanic membrane, ear canal and external ear normal. Left Ear: Tympanic membrane, ear canal and external ear normal. Nose: Nose normal. Mouth/Throat: Mouth: Mucous membranes are moist. Pharynx: Oropharynx is clear. Eyes: Conjunctiva/sclera: Conjunctivae normal. Pupils: Pupils are equal, round, and reactive to light. Cardiovascular: Rate and Rhythm: Normal rate and regular rhythm. Heart sounds: No murmur heard. Pulmonary: Effort: Pulmonary effort is normal. Breath sounds: Normal breath sounds. Musculoskeletal: General: Normal range of motion. Cervical back: No tenderness. Skin: Findings: No rash. Neurological: Mental Status: She is alert. Gait: Gait is intact. Psychiatric: Mood and Affect: Mood normal. Behavior: Behavior normal. Procedures Assessment/Plan Diagnoses and all orders for this visit: Influenza A +rapid Flu A test. Neg rapid covid test. Refilled acetaminophen. Continue ibuprofen prn. Lots of liquids. Given written Flu instructions. Rtc if not improving. - POCT Rapid COVID Ag - Influenza A (ID NOW Rapid Molecular) - Influenza B (ID NOW Rapid Molecular) Other orders - acetaminophen (Mapap Arthritis Pain) 650 MG ER tablet; TAKE 1 TABLET BY MOUTH EVERY 8 HOURS IF NEEDED FOR MILD PAIN documented in this encounter Miscellaneous Notes * Patient Education Note - Josh Thomas MD - 08/12/2024 8:20 PM EST Images from the original note were not included. Patient Education Table of Contents Gripe en los adultos (Influenza, Adult) To view videos and all your education online visit, [email or web address] or scan this QR code with your smartphone. Access to this content will in one year. Gripe en los adultos Influenza, Adult A la gripe tambi?n se la conoce renita influenza. Es migdalia infecci?n que afecta las v?as respiratorias.Estas incluyen la nariz, la garganta, la tr?quea y los pulmones. La gripe es contagiosa. Neosho significa que se transmite f?cilmente de migdalia persona a otra. Causa s?ntomas que son renita un resfr?o. Tambi?n puede provocar fiebre eros y eren corporales. ?Cu?les son las causas? La gripe es causada por el virus de la influenza. Puede contraerlo de las siguientes maneras: Al inhalar las gotitas que quedan en el aire despu?s de que migdalia persona infectada tose o estornuda. Al tocar algo que est?? contaminado con el virus y luego llevarse la mano a la boca, la nariz o losojos. ?Qu?? incrementa el riesgo? Puede ser m?s propenso a contraer gripe si: No se lava las rashid con frecuencia. Est?? cerca de muchas personas marisol la temporada de resfr?o y gripe. Se toca la boca, los ojos o la nariz sin antes lavarse las rashid. No recibe la vacuna antigripal todos los a?os. Tambi?n puede correr un mayor riesgo de tener gripe y problemas graves, renita migdalia infecci?n pulmonarllamada neumon?a, si: Tiene m?s de 65?a?os. Est?? embarazada. [place] sistema inmunitario est?? d?trina. Oneill sistema inmunitario es el sistema de defensa de oneill cuerpo. Tiene migdalia afecci?n a maurice plazo, o cr?elkin, renita: ? Enfermedad pulmonar, card?james o renal. ? Diabetes. ? Un trastorno del h?gado. ? Asma. Tiene sobrepeso. Tiene anemia. Neosho ocurre cuando no tiene suficientes gl?bulos rojos en el cuerpo. ?Cu?les son los signos o s?ntomas? Los s?ntomas de la gripe suelen aparecer de repente. Pueden durar entre 4 y 14?d?as e incluir lo siguiente: Fiebre y escalofr?os. Eren de don, eren en el cuerpo o eren musculares. Dolor de garganta. Tos. Secreci?n o congesti?n nasal. Molestias en el pecho. No querer comer tanto renita lo hace normalmente. Sensaci?n de debilidad o cansancio. Sensaci?n de mareo. N?useas o v?mitos. ?C?mo se diagnostica? La gripe puede diagnosticarse en funci?n de los s?ntomas y los antecedentes m?dicos. Tambi?n puedenhacerle un examen f?sico. Es posible que le nadia un hisopado de la nariz o la garganta para detectar el virus. ?C?mo se trata? Si la gripe se detecta de forma temprana, puede recibir tratamiento con medicamentos antivirales. Estos se pueden administrar por boca o a shashank?s de migdalia v?a intravenosa (i.v.). Pueden ayudarlo a sentirse menos enfermo y a mejorar m?s r?pido. Cuidarse en oneill hogar tambi?n puede ayudar a que mejoren claudia s?ntomas. El m?dico puede indicarle que: [place] medicamentos de venta adrian. Divine mucho l?quido. La gripe suele desaparecer micki. Si tiene s?ntomas muy graves o problemas provocados por la gripe, es posible que necesite recibir tratamiento en un hospital. Siga estas instrucciones en oneill casa: Actividad Descanse todo lo que sea necesario. Duerma mucho. Qu?dese en oneill casa y no concurra al trabajo o a la escuela, reinta se lo haya indicado oneill m?dico. ? Salga de oneill casa solo para ir al m?dico. ? No salga de oneill casa por otros motivos hasta que no haya tenido fiebre por 24?horas sin connor medicamentos. Comida y bebida [place] migdalia soluci?n de rehidrataci?n oral (oral rehydration solution, ORS). Es migdalia bebida que se vende en farmacias y tiendas. Divine suficiente l?quido renita para mantener la orina de color amarillo p?lido. Trate de beber morgan?as cantidades de l?quidos lizeth. Estos incluyen agua, cubitos de hielo, jugo de fruta rebajado con agua y bebidas deportivas bajas en calor?as. Trate de comer alimentos suaves que william f?ciles de digerir. Estos incluyen bananas, compota de manzana, arroz, isabel magras, tostadas y galletas saladas. Evite las bebidas con alto contenido de az?car o cafe?na. Estas incluyen las bebidas energ?marybel, las bebidas deportivas comunes y los refrescos. No divine alcohol. No coma alimentos grasos o muy condimentados. Instrucciones generales Use los medicamentos solamente renita se lo haya indicado el m?dico. Use un humidificador de aire fr?o para que el aire de oneill casa est?? m?s h?medo. Neosho puede facilitar la respiraci?n. Tambi?n debe limpiar el humidificador todos los d?as. Para ello: ? Vac?e el agua. ? Vierta agua limpia. Al toser o estornudar, c?brase la boca y la nariz. L?vese las rashid frecuentemente con agua y jab?n y marisol al menos 20 segundos. Es sumamente importante que lo maciej despu?s de toser o estornudar. Si no dispone de agua y jab?n, use un desinfectantepara rashid. ?C?mo se previene? Col?quese la vacuna antigripal todos los a?os. Preg?ntele al m?dico cu?ndo debe recibir la vacuna contra la gripe. Mant?ngase alejado de las personas que est?n enfermas marisol el fanny?o y el invierno. El fanny?o y elinvierno son la temporada de los resfr?os y la gripe. Comun?quese con un m?dico si: Tiene s?ntomas nuevos. Tiene dolor en el pecho. Tiene heces l?quidas, tambi?n llamado diarrea. Tiene fiebre. La tos empeora. Empieza a tener m?s mucosidad. Tiene ganas de vomitar o vomita. Solicite ayuda de inmediato si: Le falta el aire o tiene problemas para respirar. Observa que la piel o las u?as est?n azules. Presenta un dolor intenso o rigidez en el juliane. Tiene un dolor de don repentino o tiene dolor en la julio o el o?do. Vomita cada vez que come o kalin. Estos s?ntomas pueden indicar migdalia emergencia. Llame al 911 de inmediato. No espere a brendon si los s?ntomas desaparecen. No conduzca por claudia propios medios hasta el hospital. Esta informaci?n no tiene renita fin reemplazar el consejo del m?dico. Aseg?rese de hacerle al m?dicocualquier pregunta que tenga. Document Released: 2006-03-27 Document Updated: 2023-09-26 Document Reviewed: 2023-07-27 Elsevier Patient Education ? 2023 [employer]. documented in this encounter Plan of Treatment Upcoming Encounters Date Type Department Care Team (Late st Contact Info) Description 08/27/2024 3:00 PM EST Office Visit [facility] [address] [place] [address] Howie Shaw MD [address] [place] [address] documented as of this encounter Procedures Procedure Name Priority Date/Time Associated Diagnosis Comments POCT INFLUENZA B (ID NOW RAPID MOLECULAR) Routine 08/12/2024 3:21 PM EST Influenza A POCT INFLUENZA A (ID NOW RAPID MOLECULAR) Routine 08/12/2024 3:21 PM EST Influenza A POCT RAPID COVID ANTIGEN Routine 08/12/2024 3:21 PM EST Influenza A documented in this encounter Results * Influenza B (ID NOW Rapid Molecular) (08/12/2024 3:21 PM EST) Influenza B Negative Negative, Indeterminate [facility] Swab 08/12/2024 3:21 PM EST us Josh Thomas MD POINT OF CARE TEST ENTER/EDIT OR DERABLES Final Result Performing Organization Address [facility] Co de Phone Number [facility] [address] [place] [phone] * (ABNORMAL) Influenza A (ID NOW Rapid Molecular) (08/12/2024 3:21 PM EST) Influenza A Positive( A) Negative, Indeterminate [facility] Swab 08/12/2024 3:21 PM EST us Josh Thomas MD POINT OF CARE TEST ENTER/EDIT OR DERABLES Final Result Performing Organization Address [facility] Co de Phone Number [facility] [address] [place] [phone] * POCT Rapid COVID Ag (08/12/2024 3:21 PM EST) Rapid COVID Ag Negative [facility] Swab 08/12/2024 3:21 PM EST us Josh Thomas MD POINT OF CARE TEST ENTER/EDIT OR DERABLES Final Result Performing Organization Address [facility] de Phone Number [facility] [address] [place] [phone] documented in this encounter Visit Diagnoses Diagnosis Influenza A- Primary Influenza with other respiratory manifestations documented in this encounter Additional Health Concerns Assessment Noted Time PHQ-9 Depression Total Score: 5 04/30/20 24 2:46 PM EDT documented as of this encounter Care Teams Real Estate Subagent Relationship Specialty Start Date End Date Howie Shaw MD [address] [place] [phone] PCP - General Internal Medicine 02/26/14 documented as of this encounter
--- OUTSIDE RECORDS SUMMARY | 2024-08-25 15:13 | XMS_ITS | Encounter Summary ---
Author Organization [employer] Address [address] [facility] 7 [place] [address] Care Team Providers Care Pattern Layout Worker Name Role Phone Howie Shaw MD Primary Care Provide r Reason for Visit * Reason Onset Date Comments Chart Prep 08/12/2024 Encounter Details Date Type Department Care Team ([facility] st Contact Info) Description 08/12/2024 Telephone [facility] MED[facility] [address] [place] [address] Howie Shaw MD [address] [place] [address] Chart Prep Social History Tobacco Use Types Packs/Day Years [...] the past 12 months, has t he [employer] gas, oil or water company threatened to [...] Telephone Encounter - Mayte Mcdaniel [place] - 08/12/2024 6:51 PM EST Chart Prep Labs: not done Images: not applicable Vaccines due: Covid Due, Hep B Due, PCV20 Due, and Shingles in pharmacy Due Referrals: Sleep Medicine sent fax request in case pt has been seen. Screenings: PAP, Foot Exam, and HIV screening Overdue care gaps: A1C and Glucose Chart prep for upcoming appt with Dr.Esparza cortez. LB documented in this encounter Plan of Treatment Upcoming Encounters Date Type Department Care Team (Late st Contact Info) Description 08/27/2024 3:00 PM EST Office Visit [facility] [address] [place] [address] Howie Shaw MD [address] [place], [place] [phone] documented as of this encounter Visit Diagnoses Not on filedocumented in this encounter Additional Health Concerns Assessment Noted Time PHQ-9 Depression Total Score: 5 04/30/20 24 2:46 PM EDT documented as of this encounter Care Teams Pattern Layout Worker Relationship Specialty Start Date End Date Howie Shaw MD [address] [place] [address] PCP - General Internal Medicine 02/26/14 documented as of this encounter
--- OUTSIDE RECORDS SUMMARY | 2024-08-25 15:13 | XMS_ITS | Encounter Summary ---
Author Organization [email or web address] Address 75 [facility] 7t [place] [address] Care Team Providers Care Kettle Cleaner Name Role Phone Howie Shaw MD Primary Care Provide r Reason for Visit * Reason Onset Date Comments Med Refill 04/23/2024 Encounter Details Date Type Department Care Team (Late st Contact Info) Description 04/23/2024 Refill [facility] [address] [place] [address] Ashleigh Wilkins MD [address] [place] [address] Social History Tobacco Use Types Packs/Day Years [...] Description 08/27/2024 3:00 PM EST Office Visit [facility] [address] [place] [phone] Howie Shaw MD [address] [place] [phone] documented as of this encounter Visit Diagnoses Not on filedocumented in this encounter Additional Health Concerns Assessment Noted Time PHQ-9 Depression Total Score: 0 01/30/20 23 3:04 PM EDT documented as of this encounter Care Teams Kettle Cleaner Relationship Specialty Start Date End Date Howie Shaw MD [address] [place] [phone] PCP - General Internal Medicine 02/26/14 documented as of this encounter
--- OUTSIDE RECORDS SUMMARY | 2024-08-25 15:13 | XMS_ITS | Encounter Summary ---
Author Organization [employer] Address [address] [facility] [address] [place] [address] Care Team Providers Care Development Coordinator Name Role Phone Howie Shwa MD Primary Care Provide r Encounter Details Date Type Department Care Team ([facility] st Contact Info) Description 08/03/2024 Orders Only [facility] MEDICINE [address] [place] [address] Howie Shaw MD [address] [place] [address] Social History Tobacco Use Types Packs/Day Years [...] Description 08/27/2024 3:00 PM EST Office Visit [facility] MEDICINE [address] [place] [address] Howie Shaw MD [address] [place] [address] documented as of this encounter Procedures Procedure Name Priority Date/Time Associated Diagnosis Comments BI MAMMOGRAM SCREENING TOMOSYNTHESIS BILATERAL Routine 08/03/2024 1:55 PM EST documented in this encounter Results * BI Mammogram Screening Tomosynthesis Bilateral (08/03/2024 1:55 PM EST) Anatomical Region Laterality Modality Breast Bilateral Mammography 08/03/2024 1:55 PM EST Narrative 08/09/2024 5:55 PM EST ? [facility] ? [address] ?[place] [address] ? Mammography Report ? Signed ? Patient: Drew,Johanna ?MR#: [id number] ? : 1960 ?Acct:[id number] ? Age/Sex: 63 / F ?ADM Date: 02/03/25 ? Loc: HO.MAMMO ? Attending Dr: Howie Adams MD ? Ordering Physician: Howie Adams MD ?Resu ?? lts: 1Negative ? Date of Service: 08/03/24 ?Follow Up: 1 Year From Orig ?? inal Mammogram ? Procedure(s): MM tomosynthesis screening BI ?? Accession Number(s): [id number] ? cc: Howie Adams MD ? EXAMINATION: ?? MM SCREENING DIGITAL BREAST TOMOSYNTHESIS, BILATERAL ? CLINICAL INFORMATION: ? Screening. Asymptomatic. ? COMPARISON: ?? Mammography: Comparison is made with available priors ? TECHNIQUE: ?? Digital breast mammography with tomosynthesis is performed in both the ?? craniocaudal and mediolateral oblique views along with computer-aided ?? detection (CAD). ? FINDINGS: ?? There are scattered areas [...] due date for their next mammogram. ? Electronically signed by: ??Pooja Guillen DO ??08/09/2024 05:53 PM EST ? Dictated By: ?Pooja Guillen DO ? Signed By: ?<Electronically signed by Pooja Guillen, DO in OV> ? 08/09/24 1753 ? DD/ 1355 ? TD/TT: 08/03/24 1420 ? Chief Diversity Officer: ? Procedure Note Donotuseinterpreter, Image - 08/09/2024 [facility] [address] [place] [address] Mammography Report Signed Patient: Fahad Drew#: [id number] : 1960cct:[id number] Age/Sex: 63 / FADM Date: 08/03/24 Loc: HO.MAMMO Attending Dr: Howie Adams MD Ordering Physician: Howie Adams MDResu lts: 1Negative Date of Service: 08/03/24Follow Up: 1 Year From Orig inal Mammogram Procedure(s): MM tomosynthesis screening BI Accession Number(s): [id number] cc: Howie Adams MD EXAMINATION: MM SCREENING DIGITAL BREAST TOMOSYNTHESIS, BILATERAL CLINICAL INFORMATION: Screening. Asymptomatic. COMPARISON: Mammography: Comparison is made with available priors TECHNIQUE: Digital breast mammography with tomosynthesis is performed in both the craniocaudal and mediolateral oblique views along with computer-aided detection (CAD). FINDINGS: There are scattered areas of fibroglandular [...] target due date for their next mammogram. Electronically signed by: Pooja Guillen DO 08/09/2024 05:53 PM EST RP Dictated By: Pooja Guillen DO Signed By: <Electronically signed by Pooja Guillen DO in OV> 08/09/24 1753 DD/ 1355 TD/TT: 08/03/24 1420 Chief Diversity Officer: us Howie Smith MD IMG BI PROCEDURES Bony nino Result - Final documented in this encounter Visit Diagnoses Not on filedocumented in this encounter Additional Health Concerns Assessment Noted Time PHQ-9 Depression Total Score: 5 04/30/20 24 2:46 PM EDT documented as of this encounter Care Teams Development Coordinator Relationship Specialty Start Date End Date Howie Shaw MD [address] [place] [phone] PCP - General Internal Medicine 02/26/14 documented as of this encounter
--- OUTSIDE RECORDS SUMMARY | 2024-08-25 15:13 | XMS_ITS | Encounter Summary ---
Author Organization [employer] [facility] Address [address] [place] [address] 7t [place] [address] Care Team Providers Care Picture Frame Maker Name Role Phone Howie Shaw MD Primary Care Provide r Encounter Details Date Type Department Care Team (Latest Contact Info) Description 06/01/2021 Abstract [facility] CONVERSIONS Dental, Provider, DDS Social History Tobacco [...] Description 08/27/2024 3:00 PM EST Office Visit [facility] MEDICINE [address] [place] [address] Howie Shaw MD [address] [place] [address] documented as of this encounter Visit Diagnoses Not on filedocumented in this encounter Care Teams Picture Frame Maker Relationship Specialty Start Date End Date Howie Shaw MD [address] [place] [address] PCP - General Internal Medicine 02/26/14 documented as of this encounter
--- OUTSIDE RECORDS SUMMARY | 2024-08-25 15:13 | XMS_ITS | Encounter Summary ---
Author Organization [employer] Address 75 [facility] 7t [place] [address] Care Team Providers Care Director Of Channel Marketing Name Role Phone Howie Shaw MD Primary Care Provide r Reason for Visit * Reason Comments Med Refill Encounter Details Date Type Department Care Team ([facility] st Contact Info) Description 05/26/2023 Refill [facility] MED[facility] [address] [place] [address] Nafisa Frye, [address] [place] [address] Social History Tobacco Use Types Packs/Day Years [...] Description 08/27/2024 3:00 PM EST Office Visit [facility] MED[facility] [address] [place] [address] Howie Shaw MD [address] [place] [address] documented as of this encounter Visit Diagnoses Not on filedocumented in this encounter Additional Health Concerns Assessment Noted Time PHQ-9 Depression Total Score: 0 01/30/20 23 3:04 PM EDT documented as of this encounter Care Teams Director Of Channel Marketing Relationship Specialty Start Date End Date Howie Shaw MD [address] [place] [phone] PCP - General Internal Medicine 02/26/14 documented as of this encounter
--- OUTSIDE RECORDS SUMMARY | 2024-08-25 15:13 | XMS_ITS | Encounter Summary ---
Author Organization [email or web address] Address [address] [facility] 7 [place] [address] Care Team Providers Care Church History Teacher Name Role Phone Howie Shaw MD Primary Care Provide r Reason for Visit * Reason Onset Date Comments Nurse Triage 08/12/2024 Encounter Details Date Type Department Care Team ([facility] st Contact Info) Description 08/12/2024 Telephone [facility] [address] [place] [address] Howie Shaw MD [address] [place] [address] Nurse Triage Social History Tobacco Use Types Packs/Day Years [...] encounter Miscellaneous Notes * Telephone Encounter - Francheska March RN - 08/12/2024 11:54 AM EST No programs director needed as this comic book writer speaks [place]guill[place]. Call returned to Johanna Drew to triage below. Reports having headache on right side last night. Pt josue any fever. Having onset of weakness x 3 days. Per pt had mild headache this morning. No CP, SOB or blurred vision. Pt has not check BS today. Per pt BS last night was normal. Reports having nausea and diarrhea over the weekend. Per pt also had JULIANA sx. Did not do home kit for COVID-19.Pt advised of disposition, agrees to intED and declinesour walk in center. Confirmed demographics and allergies. Protocol Used: Headache (Adult) Protocol-Based Disposition: See in Office or Video Visit Today or Tomorrow Video visit offer not recorded Positive Triage Question: * Moderate headache (e.g., interferes with normal activities) present > 24 hours and unexplained * All higher-acuity triage questions were negative Care Advice Discussed: * Reassurance and Education - Migraine Headache * Reasons To Call Back - Severe headache lasts over 2 hours after pain medicine - Stiff neck occurs (can't touch chin to chest) - You become worse * Telephone Encounter - Roderick White - 08/12/2024 11:33 AM EST Symptoms: Fever, Weakness, Headache Outcome: Talk to a nurse or provider within 15 minutes Reason: Trouble walking The caller accepted this outcome. documented in this encounter Plan of Treatment Upcoming Encounters Date Type Department Care Team (Late st Contact Info) Description 08/27/2024 3:00 PM EST Office Visit [facility] [address] [place] [address] Howie Shaw MD [address] [place] [phone] documented as of this encounter Visit Diagnoses Not on filedocumented in this encounter Additional Health Concerns Assessment Noted Time PHQ-9 Depression Total Score: 5 04/30/20 24 2:46 PM EDT documented as of this encounter Care Teams Church History Teacher Relationship Specialty Start Date End Date Howie Shaw MD [address] [place] [address] [phone] PCP - General Internal Medicine 02/26/14 documented as of this encounter
--- OUTSIDE RECORDS SUMMARY | 2024-08-25 15:13 | XMS_ITS | Encounter Summary ---
Author Organization [employer] Address [address] [facility] 7t [place] [address] Care Team Providers Care Tetryl Dissolver Operator Name Role Phone Howie Shaw MD Primary Care Provide r Encounter Details Date Type Department Care Team ([facility] st Contact Info) Description 06/25/2023 Telephone [facility] [address] [place] [address] Howie Shaw MD [address] [place] [address] Social History Tobacco Use Types Packs/Day Years [...] Description 08/27/2024 3:00 PM EST Office Visit [facility] [address] [place] [address] Howie Shaw MD [address] [place] [phone] documented as of this encounter Visit Diagnoses Not on filedocumented in this encounter Additional Health Concerns Assessment Noted Time PHQ-9 Depression Total Score: 0 01/30/20 23 3:04 PM EDT documented as of this encounter Care Teams Tetryl Dissolver Operator Relationship Specialty Start Date End Date Howie Shaw MD [address] [place] [phone] PCP - General Internal Medicine 02/26/14 documented as of this encounter
--- OUTSIDE RECORDS SUMMARY | 2024-08-25 15:13 | XMS_ITS | Encounter Summary ---
Author Organization [employer] Address [address] [facility] 7t [place] [address] Care Team Providers Care Cargo Mate Name Role Phone Howie Shaw MD Primary Care Provide r Reason for Visit * Reason Onset Date Comments Med Refill 04/23/2024 Encounter Details Date Type Department Care Team (Late st Contact Info) Description 04/23/2024 Refill [facility] [address] [place] [address] Collette Camejo FNP [address] [place] [address] Other hemorrhoids Social History Tobacco Use Types [...] Description 08/27/2024 3:00 PM EST Office Visit [facility] [address] [place] [phone] Howie Shaw MD [address] [place] [address] documented as of this encounter Visit Diagnoses Diagnosis Other hemorrhoids documented in this encounter Additional Health Concerns Assessment Noted Time PHQ-9 Depression Total Score: 0 01/30/20 23 3:04 PM EDT documented as of this encounter Care Teams Cargo Mate Relationship Specialty Start Date End Date Howie Shaw MD [address] [place] [phone] PCP - General Internal Medicine 02/26/14 documented as of this encounter
--- OUTSIDE RECORDS SUMMARY | 2024-08-25 15:13 | XMS_ITS | Encounter Summary ---
Author Organization [employer] Address [address] [place] [address] 7 [place] [address] Care Team Providers Care Memory Care Program Director Name Role Phone Howie Shaw MD Primary Care Provide r Reason for Visit * Reason Comments Care Coordination CHW outreach SDOH pe st control - referral completed Encounter Details Date Type Department Care Team (Latest Contact Info) Description 08/14/2024 Patient Outreach [facility] 230 [place] [address] Howie Shaw MD [address] [place] [address] Care Coordination (CHW outreach SDOH pest control - referral completed ) Social History Tobacco Use Types Packs/Day Years [...] as of this encounter Progress Notes * Ever Michelle - 08/14/2024 12:50 PM EST CHW Ever Michelle, placed outbound call to patient for assistance with SDOH as a referral was received by the provider. Patient's name and were confirmed. Patient screened positive for the following SDOH pet's control & food insecurities. CHW referral patient to the local list of pantriesin the area for help and advice family to connect with [employer] and pet's control offices in [place] for more resources. Patient verbalizes understanding, and able to agree with plan to follow up. Patient educated on extended clinic hours on Mondays through Wednesdays, and Walk-In Urgent Care Located in [facility] of [facility]. Patient provided with after-hours line for [facility], , which offer night time triage service and option to transfer to advanced manufacturing consultant provider if needed. documented in this encounter Plan of Treatment Upcoming Encounters Date Type Department Care Team (Late st Contact Info) Description 08/27/2024 3:00 PM EST Office Visit [facility] [address] [place] [address] Howie Shaw MD [address] [place] [address] documented as of this encounter Visit Diagnoses Not on filedocumented in this encounter Additional Health Concerns Assessment Noted Time PHQ-9 Depression Total Score: 5 04/30/20 24 2:46 PM EDT documented as of this encounter Care Teams Memory Care Program Director Relationship Specialty Start Date End Date Howie Shaw MD [address] [place] [phone] PCP - General Internal Medicine 02/26/14 documented as of this encounter
--- OUTSIDE RECORDS SUMMARY | 2024-08-25 15:13 | XMS_ITS | Encounter Summary ---
Author Organization [employer] Address [address] [facility] 7t [place] [address] Care Team Providers Care Steam Drier Operator Name Role Phone Howie Shaw MD Primary Care Provide r Reason for Visit * Reason Comments Med Refill Encounter Details Date Type Department Care Team ([facility] st Contact Info) Description 04/26/2023 Refill [facility] [address] [place] [address] Howie Shaw MD 230 [place] [address] Social History Tobacco Use Types Packs/Day Years [...] 3:00 PM EST Office Visit [facility] [address] [place] [address] Howie Shaw MD [address] [place] [address] documented as of this encounter Visit Diagnoses Not on filedocumented in this encounter Additional Health Concerns Assessment Noted Time PHQ-9 Depression Total Score: 0 01/30/20 23 3:04 PM EDT documented as of this encounter Care Teams Steam Drier Operator Relationship Specialty Start Date End Date Howie Shaw MD [address] [place] [phone] PCP - General Internal Medicine 02/26/14 documented as of this encounter
--- OUTSIDE RECORDS SUMMARY | 2024-08-25 15:13 | XMS_ITS | Encounter Summary ---
Author Organization [facility] Address [address] [place] [address] 7 [place] [address] Care Team Providers Care Hand Buffer Name Role Phone Howie Shaw MD Primary Care Provide r Encounter Details Date Type Department Care Team (Latest Contact Info) Description 09/24/2018 Abstract [facility] CONVERSIONS Dental, Provider, DDS Social History [...] Description 08/27/2024 3:00 PM EST Office Visit [facility] 230 [place] [address] Howie Shaw MD 230 [place] [address] documented as of this encounter Visit Diagnoses Not on filedocumented in this encounter Care Teams Hand Buffer Relationship Specialty Start Date End Date Howie Shaw MD [address] [place] [phone] PCP - General Internal Medicine 02/26/14 documented as of this encounter
--- OUTSIDE RECORDS SUMMARY | 2024-08-25 15:13 | XMS_ITS | Clinical Summary ---
Author Organization [employer] Address [address] [place] [address] 7t [place] [address] Care Team Providers Care Orthopedic Shoe Maker Name Role Phone Howie Shaw MD Primary Care Provide r Allergies No known active allergies Medications cetirizine (ZyrTEC) 10 MG tablet Take 1 tab po daily for 3 days 3 tablet 12/12/19 23 Active FREESTYLE LITE test stripIndicatio ns:Type 2 diabetes mellitus without complication, without long-term current use of insulin ([facility]) TEST BLOOD SUGAR TWICE DAILY 100 strip 5 02/10/20 24 Active FreeStyle lancetsIndicat ions:Type 2 diabetes mellitus without complication, without long-term current use of insulin ([facility]) TEST BLOOD SUGAR TWICE DAILY 100 each 2 02/12/20 24 Active acetaminophen- codeine (Tylenol with Codeine #4) 300-60 MG tabletIndicati ons:Posterior left knee pain Take 1 tablet by mouth every 6 (six) hours if needed for moderate pain. 30 tablet 04/28/20 24 Active Diclofenac Sodium 1 % gel APPLY 2 GRAMS TOPICALLY IN THE MORNING, AT NOON, IN THE EVENING AND AT BEDTIME IF NEEDED FOR PAIN 100 g 3 04/28/20 24 Active hydrocortisone (Anusol-HC) 2.5 % rectal creamIndicatio ns:Other hemorrhoids INSERT INTO THE RECTUM IN THE MORNING AND AT BEDTIME IF NEEDED FOR HEMORRHOIDS 28 g 1 04/28/20 24 Active Dulaglutide 0.75 MG/0.5ML solution auto-injectorI ndications:Typ e 2 diabetes mellitus without complication, without long-term current use of insulin ([facility]) Inject 0.75 mg under the skin 1 (one) time per week. 0.5 mL 6 04/30/20 24 Active zolpidem (Ambien) 10 MG tabletIndicati ons:Primary insomnia Take 1 tablet (10 mg) by mouth if needed at bedtime for sleep. 30 tablet 1 04/30/20 24 Active acetaminophen (Mapap Arthritis Pain) 650 MG ER tablet TAKE 1 TABLET BY MOUTH EVERY 8 HOURS IF NEEDED FOR MILD PAIN 40 tablet 1 08/12/19 25 Active acetaminophen (Mapap Arthritis Pain) 650 MG ER tablet TAKE 1 TABLET BY MOUTH EVERY 8 HOURS IF NEEDED FOR MILD PAIN 40 tablet 1 04/28/20 24 025 Discontinued(R eorder (will not trigger notification to Pharmacy)) Active Problems Problem Noted Date Diagnosed Date [...] NL : 07/19/2023 Normal Pap Smear: at [facility] 11/27/2016 normal. Pt is being followed by [facility] Colonoscopy: 12/[address] Johns normal aside from Hemorrhoids; repeat in 10 years Assessment & Plan (01/29/2023 3:10 PM EDT): Mammogram: NL : 04/27/2022 Pap Smear: at [facility] 11/27/2016 normal. Pt is being followed by [facility] Colonoscopy: 12/[address] Andreas bravo aside from Hemorrhoids; repeat in 10 years Chronic pain of left knee 01/29/2023 Assessment & Plan (06/25/2023 1:04 PM EST): Televisit Initially presented with c/o acute pain of [...] 7.5 from 6.3 Eye exam 11/07/2023 Dr. Milian Microalbumin 08/05/2020 was 0.2 Pt not on [...] Encounters Date Type Department Care Team Description 08/18/[address] [address] Howie Shaw MD Referral 08/14/2024 Patient Outreach [address] [address] Howie Shaw MD Care Coordination (W outreach SDOH pest control - referral completed ) 08/14/2024 Patient Outreach [address] [address] Howie Shaw MD Pre-visit Planning (SDOH Screening positive and Tobacco screening negative) 08/12/2024 3:20 PM EST Office Visit [facility] [address] [place] [phone] Josh Thomas MD Influenza A (Primary Dx) 08/12/[address] [address] Howie Shaw MD Chart Prep 08/12/[address] [address] Howie Shaw MD Nurse Triage 08/03/2024 Orders Only [address] [address] Howie Shaw MD 06/16/[address] [address] Kelley Hughes [place] Fe.Recall from Last 3 Months Immunizations Name Administration [...] is your housing situation today? I have ujdah taylor 08/14/[address] you li [...] oz) 08/12/2024 3:05 P M EST Height 160 cm (5' 3 ) 04/30/2024 2:19 PM EDT Body Mass Index 33.34 04/30/2024 2:19 PM EDT Plan of Treatment Upcoming Encounters Date Type Department Care Team (Late st Contact Info) Description 08/27/2024 3:00 PM EST Office Visit [facility] [address] [place] [address] Howie Shaw MD 230 [place] [address] Health Maintenance Due Date Last Done Comments CT Colonography 1960 FIT DNA/Cologuard 1960 FIT 1960 FOBT 1960 HIV Screening 1960 Sigmoidoscopy 1960 Hepatitis C Screening 1978 Pneumococcal Vaccine: 50+ Years (1 of 2 - PCV) 10/08/1979 Hepatitis B Vaccines (3 of 3 - 19+ 3-dose series) 09/24/2003 06/04/2003, 03/26/2003 Zoster Vaccines (1 of 2) 2010 Diabetes: Foot Exam 08/22/2023 08/22/2022, 08/22/2022, 08/22/2022, Additional history exists Lipid Panel 02/07/2024 08/25/2024, 080 03/2023, 09/06/2021, Additional history exists COVID-19 Vaccine ( season) 2024 11/22/2020, 10/27/2020 Diabetes: Hemoglobin A1C 07/31/2024 024, 11/26/2023, 08/27/2023, Additional history exists Diabetes: Urine Protein Screening 08/27/2024 08/25/2024, 08/27/2023, 09/06/2021, Additional history exists Cervical Cancer Screening 11/18/2024 HPV/Cotest 11/18/2024 11/19/2019 Pap Smear 11/18/2024 11/19/2019 Alcohol/Substance Use Screening 04/30/2025 04/30/2024 Depression Screening 04/30/2025 04/30/2024, 04/30/20 24 Mammogram 08/03/2025 08/03/2024, 07/01, 04/26/2022, Additional history exists Tobacco Screening 08/12/2025 08/12/2024 SDOH Screening 08/14/2025 08/14/2024 Eye Exam 11/06/2025 11/07/2023, 0503/2024, 11/07/2023, Additional history exists DTaP/Tdap/Td Vaccines (2 [...] Procedure Name Priority Date/Time Associated Diagnosis Comments ALBUMIN, RANDOM URINE W/CREATININE Routine 08/25/2024 12:33 PM EST Type 2 diabetes mellitus without complication, without long-term current use of insulin ([facility]) COMPREHENSIVE METABOLIC PANEL Routine 08/25/2024 12:33 PM EST Type 2 diabetes mellitus without complication, without long-term current use of insulin ([facility]) LIPID PANEL, STANDARD Routine 08/25/2024 12:33 PM EST Elevated LDL cholesterol level POCT INFLUENZA B (ID NOW RAPID MOLECULAR) Routine 08/12/2024 3:21 PM EST Influenza A POCT INFLUENZA A (ID NOW RAPID MOLECULAR) Routine 08/12/2024 3:21 PM EST Influenza A POCT RAPID COVID ANTIGEN Routine 08/12/2024 3:21 PM EST Influenza A BI MAMMOGRAM SCREENING TOMOSYNTHESIS BILATERAL Routine 08/03/2024 1:55 PM EST POCT GLYCATED HEMOGLOBIN, TOTAL Routine 04/30/2024 2:43 PM EDT Type 2 diabetes mellitus without complication, without long-term current use of insulin ([facility]) HM COLONOSCOPY Routine 01/22/2023 HM PAP/HPV Routine 11/19/2019 from Last 3 Months or Most Recently Relevant to Health Maintenance Results * Albumin, Random Urine W/Creatinine (08/25/2024 12:33 PM EST) Creatinine, Urine 274.51 mg/dL [facility] Microalbumin Urine 24.0 mg/L H [facility] Microalbum Creatinine Ratio Ur 8.7 <30 ug/mg cr [facility] Comment:Albumin/Creatinine R atio Reference Ranges: Normal: < 30 ug/mg creatinine Microalbuminuria: 30 - 300 ug/mg creatinineClinical Albuminuria: > 300 ug/mg creatinine Urine (Urine, Random) 08/25/2024 12:33 PM EST 08/25/2024 1:08 PM EST us Howie Smith MD LAB URINE ORDERABLES Final Result [facility] [address] [place] [phone] * (ABNORMAL) Lipid Panel, Standard (08/25/2024 12:33 PM EST) Triglycerides 81 <150 mg/dL [facility] Comment:Desirable Triglyceri de: less than 150 mg/dLBorderline High Triglyceride 150-199 mg/dLHigh Triglyceride: 200-499 mg/dLVery High Triglyceride: greater than or equal to 5OO mg/dL Cholesterol 167 <200 mg/dL [facility] Comment:Desirable Cholestero l: less than 200 mg/dLBorderline High Cholesterol: 200-239 mg/dLHigh Cholesterol: greater than 239 mg/dL LDL Cholesterol Calculated 109(H) <100 mg/dL [facility] Comment:Desirable LDL: less than 100 mg/dLNear Optimal/Above Optimal LDL: 110- 129 mg/dLBorderline High LDL: 130-159 mg/dLHigh LDL: 160-189 mg/dLVery High LDL: greater than or equal to 190 mg/dL HDL Cholesterol 42 >40 mg/dL [facility] Comment:Desirable HDL: great er than 40 mg/dL Note: This HDL assay may give artificially low results in patients with liver disease. Blood Venous blood specimen / Unknown 08/25/2024 12:33 PM EST 08/25/2024 1:06 PM EST us Howie Smith MD LAB BLOOD ORDERABLES Final Result Performing Organization Address City/[facility]/ZIP Co de Phone Number [facility] [address] [place] [phone] * (ABNORMAL) Comprehensive Metabolic Panel (08/25/2024 12:33 PM EST) Sodium 140 135 - 145 mmol/L [facility] Potassium 4.6 3.3 - 5.1 mmol/L [facility] Chloride 107 96 - 108 mmol/L [facility] Carbon Dioxide 26 22 - 29 mmol/L [facility] Anion Gap 12 12 - 20 [facility] Urea Nitrogen (BUN) 15 9 - 16 mg/dL [facility] Creatinine, Serum 0.75 0.5 - 1.4 mg/dL [facility] Estimated Glomerular Filt Rate >60 [facility] Comment:Chronic Kidney Disea se: Estimated GFR < 60 mL/min/1.23c2Ugdobh Kidney Disease: Estimated GFR < 15 mL/min/1.73m2 Glucose 112 60 - 115 mg/dL [facility] Calcium 9.2 8.4 - 10.2 mg/dL [facility] Bilirubin, Total 0.4 0.0 - 1.0 mg/dL [facility] Aspartate Amino Transferase 20 5 - 31 U/L [facility] Alanine Aminotransferase 25 0 - 31 U/L [facility] Total Protein 8.4(H) 6.5 - 8.0 g/dL [facility] Albumin Level 3.9 3.5 - 5.0 g/dL [facility] Alkaline Phosphatase 115 39 - 117 U/L [facility] Blood Venous blood specimen / Unknown 08/25/2024 12:33 PM EST 08/25/2024 1:06 PM EST Howie Smith MD LAB BLOOD ORDERABLES Final Result Performing Organization Address City/[facility]/ZIP Co de Phone Number [facility] [address] [place] [address] [phone] * Influenza B (ID NOW Rapid Molecular) (08/12/2024 3:21 PM EST) Pathologist [facility] Influenza B Negative Negative, Indeterminate [facility] Swab 08/12/2024 3:21 PM EST us Josh Thomas MD POINT OF CARE TEST ENTER/EDIT OR DERABLES Final Result Performing Organization Address [facility]/ZIP Co de Phone Number [facility] [address] [place] [phone] * (ABNORMAL) Influenza A (ID NOW Rapid Molecular) (08/12/2024 3:21 PM EST) [facility] Influenza A Positive( A) Negative, Indeterminate [facility] Swab 08/12/2024 3:21 PM EST us Josh Thomas MD POINT OF CARE TEST ENTER/EDIT OR DERABLES Final Result Performing Organization Address [facility] Co de Phone Number [facility] [address] [place] [phone] * POCT Rapid COVID Ag (08/12/2024 3:21 PM EST) Pathologist [facility] Rapid COVID Ag Negative [facility] Swab 08/12/2024 3:21 PM EST us Josh Thomas MD POINT OF CARE TEST ENTER/EDIT OR DERABLES Final Result Performing Organization Address [facility] Co de Phone Number [facility] [address] [place] [phone] [phone] * BI Mammogram Screening Tomosynthesis Bilateral (08/03/2024 1:55 PM EST) Anatomical Region Laterality Modality Breast Bilateral Mammography 08/03/2024 1:55 PM EST Narrative 08/09/2024 5:55 PM EST ? [facility] ? [address] ?[place] [address] ? Mammography Report ? Signed ? Patient: Drew,Johanna ?MR#: [id number] ? : 1960 ?Acct:[id number] ? Age/Sex: 63 / F ?ADM Date: 08/03/24 ? Loc: HO.MAMMO ? Attending Dr: Howie Adams MD ? Ordering Physician: Howie Adams MD ?Resu ?? lts: 1Negative ? Date of Service: 08/03/24 ?Follow Up: 1 Year From Orig ?? inal Mammogram ? Procedure(s): MM tomosynthesis screening BI ?? Accession Number(s): [id number] ? cc: Howie Adams MD ? EXAMINATION: [...] DD/ 1355 ? TD/TT: 08/03/24 1420 ? Braille Typist: ? Procedure Note Lisa Morris - 08/09/2024 [facility] [address] [place] [address] Mammography Report Signed Patient: Fahad Drew#: [id number] : 1960cct:[id number] Age/Sex: 63 / FADM Date: 08/03/24 Loc: HO.MAMMO Attending Dr: Howie Adams MD Ordering Physician: Howie Adams MDResu lts: 1Negative Date of Service: 08/03/24Follow Up: 1 Year From Orig inal Mammogram Procedure(s): MM tomosynthesis screening BI Accession Number(s): [id number] cc: Howie Adams MD EXAMINATION: MM SCREENING [...] by Pooja Guillen DO in OV> 08/09/24 1755 DD/ 1355 TD/TT: 08/03/24 1420 Braille Typist: Howie Smith MD IMG BI PROCEDURES Bony nino Result - Final * (ABNORMAL) POCT HGB A1C (04/30/2024 2:43 PM EDT) Hemoglobin A1C 7.5(A) 4.0 - 6.0 % QC Media Lot # [id number] Lot# Expiration Date [id number] Blood 04/30/2024 2:43 PM EDT Result [facility] Howie Smith MD POINT OF CARE TEST EN TER/EDIT ORDERABLES Final Result * Colonoscopy (01/22/2023) Colonoscopy Normal Normal Comment:Dr Sang hernandez Historical [employer] Final Result * Pap Smear (11/19/2019) Pathologist [facility] Pap Negative for intraephithelial lesion or malignancy Negative for intraephithelial lesion or malignancy, Other HPV Undetected Undetected, Indeterminate, Quantitative, Not Detected Historical [employer] Final Result from Last 3 Months or Most Recently Relevant to Health Maintenance Insurance [facility] Member Subscriber Plan / Payer (Ef fective 2020-Present) Name:Johanna Drew Relation to Subscriber:Self Name:Johanna Drew Payer ID:Not on file Group ID:[id number] Type:Not on file Address: [address] STANDARD Care Teams Orthopedic Shoe Maker Relationship Specialty Start Date End Date Howie Shaw MD [address] [place] [phone] PCP - General Internal Medicine 02/26/14
--- OUTSIDE RECORDS SUMMARY | 2024-08-25 15:13 | XMS_ITS | Encounter Summary ---
Author Organization [employer] Address [address] [facility] 7t [place] [address] Care Team Providers Care Import And Export Clerk Name Role Phone Howie Shaw MD Primary Care Provide r Reason for Visit * Reason Onset Date Comments Med Refill 04/23/2024 Encounter Details Date Type Department Care Team (Late st Contact Info) Description 04/23/2024 Refill [facility] [address] [place] [address] Nafisa Frye DO 230 [place] [address] Social History Tobacco Use Types Packs/Day Years [...] Description 08/27/2024 3:00 PM EST Office Visit [facility] [address] [place] [phone] Howie Shaw MD [address] [place] [phone] documented as of this encounter Visit Diagnoses Not on filedocumented in this encounter Additional Health Concerns Assessment Noted Time PHQ-9 Depression Total Score: 0 01/30/20 23 3:04 PM EDT documented as of this encounter Care Teams Import And Export Clerk Relationship Specialty Start Date End Date Howie Shaw MD [address] [place] [phone] PCP - General Internal Medicine 02/26/14 documented as of this encounter
== END 2024-08-25 12:32 | disposition home or self-care (01) ==
LOC: HO.HHCL 12:31
PROVIDERS: Visit Provider Internal Medicine
DX: E78.00 Pure hypercholesterolemia, unspecified (principal); E11.9 Type 2 diabetes mellitus without complications
CPT/HCPCS: 36415; 80053; 80061; 82043; 82570

== ENCOUNTER 2024-09-05 23:06 | Emergency (ER) | payer OTHER, SELFPAY ==
[2024-09-05 23:12] VITALS: BP 108/66; PULSE 84; O2SAT 95
--- NOTE | 2024-09-05 23:55 | ED_ITS ---
HPI - General Adult General Chief complaint: Dizziness Stated complaint: Fatigue, dizzy Time Seen by Provider: 09/05/24 23:54 Source: patient and family Mode of arrival: EMS Limitations: no limitations History of Present Illness ED Provider: HPI narrative: Patient with history of depression not eating well since her in 03/24 usually has only evening meal today patient was in mormonism did not eat all day except for small meal before going to charge was standing for 2 hours fell lightheaded almost passed out with 1 episode of vomiting no chest pain no abdominal pain no urinary symptoms no fever no chills Related Data Home Medications ?Medication ?Instructions ?Recorded ?Confirmed hydrocortisone 2.5 % topical cream ME 10/04/22 07/15/24 with perineal applicator acetaminophen 650 mg 650 mg PO Q8H PRN mild pain 01/22/23 07/15/24 tablet,extended release (Mapap Arthritis Pain) cetirizine 10 mg tablet 10 mg PO DAILY 01/22/23 07/15/24 naproxen 500 mg tablet 500 mg PO BID 01/22/23 07/15/24 Allergies Allergy/AdvReac Type Severity Reaction Status Date / Time No Known Allergies Allergy Verified 09/06/24 00:14 Review of Systems 2 Review of Systems: Yes all other systems are reviewed and are negative PMFSH Past Medical History Medical History Tachycardia PONV (postoperative nausea and vomiting) Type II diabetes mellitus Obesity Depressive disorder Chronic headache disorder Family history of breast cancer Colon cancer screening Nocturnal hypoxemia Cough MAYCOL on CPAP Obesity (BMI 30-39.9) Surgical History History of tubal ligation Hx of cholecystectomy Hx of colonoscopy Social History Social History Alcohol intake: never Patient Tobacco Use Status: Former Tobacco user Smoked in Last 30 Days: No Use of substances other than those prescribed or required for medical reasons: No Advance Directives: No Advance Directives Information Provided: Yes Patient : No Physical Exam ED Vital Signs: Vital Signs - 24 hr 09/06/24 00:10 09/06/24 03:08 09/06/24 04:22 Temperature 97.9 F Pulse Rate 83 80 75 Respiratory Rate 17 18 Blood Pressure 105/60 118/70 127/73 Pulse Oximetry 96 97 Oxygen Delivery Method Room Air Room Air 09/06/24 04:23 09/06/24 04:24 Temperature Pulse Rate 79 88 Respiratory Rate Blood Pressure 133/71 129/81 Pulse Oximetry Oxygen Delivery Method BMI result Body Mass Index 35.1 Appearance: Alert. Oriented X3. No acute distress. Eyes: No pallor or icterus ENT: Pharynx normal. Oral Mucosa Dry Neck: Normal inspection. Neck supple. CVS: Normal heart rate and rhythm. Pulses normal. Respiratory: No respiratory distress. Equal air entry bilateral, no wheezing/rales/rhonchi Abdomen: Soft and nontender. Bowel sounds are present, no mass palpable, no CVA tenderness Skin: Skin warm and dry. Normal skin color. Normal skin turgor. Extremities: No lower extremity edema. No calf tenderness Neuro: Oriented X 3. No motor deficit. No sensory deficit.No cerebellar signs , cranial nerves II-XII intact Medical Decision Making Medical Decision Making [facility] Narrative: Patient with near-syncope likely from lack of fluids orthostatics normal improved after p.o. fluids and IV fluids feeling much better will discharge patient home Differential Diagnosis Differential Diagnoses: The differential diagnosis associated with the presentation includes Lab Data [facility] Lab Attestation statement: I reviewed the patient's lab results. 09/06/24 00:36 09/06/24 00:36 Labs: Lab Results 09/06/24 09/06/24 Range/Units 00:36 00:38 WBC 10.3 (4.8-10.8) X10*3/uL RBC 5.13 (4.20-5.50) X10*6/uL Hgb 15.0 (12.0-16.0) g/dl Hct 43.9 (37.0-47.0) % MCV 85.6 (80.0-98.0) fL MCH 29.2 (27.0-33.0) pg MCHC 34.2 (31.0-35.0) g/dl RDW 13.1 (11.0-16.0) % Plt Count 273 (160-400) X10*3/uL MPV 9.3 L (9.4-12.3) fL Immature Gran % (Auto) 0.5 H (0.0-0.4) % Neut % (Auto) 77.9 H (45-73) % Lymph % (Auto) 12.5 L (20-40) % Clayton % (Auto) 8.0 (2-11) % Eos % (Auto) 0.7 (0-4) % Baso % (Auto) 0.4 (0-2) % Lymph # (Auto) 1.3 (1.2-4.9) X10*3/uL Clayton # (Auto) 0.8 (0.1-1.2) X10*3/uL Eos # (Auto) 0.1 (0.0-0.4) X10*3/uL Baso # (Auto) 0.0 (0.0-0.2) X10*3/uL Abs Immat Gran (auto) 0.05 H (0.00-0.03) X10*3/uL Absolute Neuts (auto) 8.0 (2.0-8.3) x10*3/uL Absolute Nucleated RBC 0.000 (0.0-0.012) X10*3/uL Nucleated RBC % (auto) 0.0 (0.0-0.2) /100WBC Sodium 140 (135-145) mmol/L Potassium 4.3 (3.3-5.1) mmol/L Chloride 106 (96-108) mmol/L Carbon Dioxide 22 (22-29) mmol/L Anion Gap 16 (12-20) BUN 23 H (9-16) mg/dL Creatinine 1.06 (0.5-1.4) mg/dL Estim Creat Clear Calc 57.8 Estimated GFR 52 Random Glucose 121 H (60-115) mg/dL Calcium 10.0 D (8.4-10.2) mg/dL Total Bilirubin 0.3 (0.0-1.0) mg/dL AST 36 H (5-31) U/L ALT 27 (0-31) U/L Alkaline Phosphatase 102 (39-117) U/L Total Protein 9.2 H (6.5-8.0) g/dL Albumin 4.1 (3.5-5.0) g/dL Influenza Type A (PCR) NEGATIVE (Negative) Influenza Type B (PCR) NEGATIVE (Negative) RSV RNA Qual (PCR) NEGATIVE (Negative) SARS-CoV-2 RNA (RT-PCR) NEGATIVE (Negative) Independent Interpretation I performed an independent interpretation of an: EKG Interpretation: Normal sinus rhythm heart rate 91 beats per minute normal interval normal axis no acute STT wave changes no acute ischemia Discharge Plan Discharge Clinical Impression: Vasovagal near syncope Patient Disposition: Home, Self-Care Instructions: Near Syncope (ED) Additional Instructions: Drink plenty of fluids Eat well and take your medication and follow up with your PCP Your symptoms likely happened because of dehydration and lack of food Prescriptions: No Action hydrocortisone 2.5 % cream with perineal applicator ME cetirizine 10 mg tablet 10 mg PO DAILY acetaminophen [Mapap Arthritis Pain] 650 mg tablet extended release 650 mg PO Q8H PRN (Reason: mild pain) naproxen 500 mg tablet 500 mg PO BID Print Language: South Sudanese
--- NOTE | 2024-09-06 | ECG_ITS ---
Test Reason : DIZZINESS Blood Pressure : */* mmHG Vent. Rate : 91 BPM Atrial Rate : 91 BPM P-R Int : 160 ms QRS Dur : 86 ms QT Int : 356 ms P-R-T Axes : 46 50 83 degrees QTcB Int : 437 ms Normal sinus rhythm Nonspecific ST and T wave abnormality Abnormal ECG When compared with ECG of 03-Jan-2020 08:06, Nonspecific T wave abnormality now evident in Lateral leads Referred By: Norberto Monk Electronically Signed By: ROEL CEBALLOS MD
[2024-09-06 00:10] VITALS: BP 105/60; PULSE 83; RESP 17; TEMP 36.6; O2SAT 96; BMI 35.1
[2024-09-06 00:47] LABS: Basophils Percent Auto 0.4 % (0-2); Eosinophils Absolute Auto 0.1 X10*3/uL (0.0-0.4); Eosinophils Percent Auto 0.7 % (0-4); Hematocrit 43.9 % (37.0-47.0); Imm Gran Abs Auto 0.05 X10*3/uL (0.00-0.03); Imm Gran Pct Auto 0.5 % (0.0-0.4); Lymphocytes Absolute Auto 1.3 X10*3/uL (1.2-4.9); Lymphocytes Percent Auto 12.5 % (20-40); MANUAL DIFF FLAG NO; Mean Corpuscular HGB Conc 34.2 g/dl (31.0-35.0); Mean Corpuscular Hemoglobin 29.2 pg (27.0-33.0); Mean Corpuscular Volume 85.6 fL (80.0-98.0); Mean Platelet Volume 9.3 fL (9.4-12.3); Monocytes Absolute Auto 0.8 X10*3/uL (0.1-1.2); Neutrophils Percent Auto 77.9 % (45-73); Platelet Count 273 X10*3/uL (160-400); Red Blood Count 5.13 X10*6/uL (4.20-5.50); Red Cell Distribution Width 13.1 % (11.0-16.0); White Blood Count 10.3 X10*3/uL (4.8-10.8)
--- OUTSIDE RECORDS SUMMARY | 2024-09-06 00:49 | XMS_ITS | Encounter Summary ---
Author Organization [employer] Address [address] [facility] 7t [place] [address] Care Team Providers Care Jboss Architect Name Role Phone Howie Shaw MD Primary Care Provide r Encounter Details Date Type Department Care Team (Latest Contact Info) Description 08/27/2024 Travel Social History Tobacco Use Types Packs/Day Years [...] Care Team (Late st Contact Info) Description 11/26/2024 3:00 PM EDT Office Visit [facility] MEDICINE [address] [place] [address] Howie Shaw MD [address] [place] [address] documented as of this encounter Visit Diagnoses Not on filedocumented in this encounter Additional Health Concerns Assessment Noted Time PHQ-9 Depression Total Score: 5 04/30/20 24 2:46 PM EDT documented as of this encounter Care Teams Jboss Architect Relationship Specialty Start Date End Date Howie Shaw MD [address] [place] [address] PCP - General Internal Medicine 02/26/14 documented as of this encounter
--- OUTSIDE RECORDS SUMMARY | 2024-09-06 00:49 | XMS_ITS | Encounter Summary ---
Author Organization [employer] Address [address] [facility] 7t [place] [address] Care Team Providers Care Plumbing Drafter Name Role Phone Howie Shaw MD Primary Care Provide r Reason for Visit * Reason Onset Date Comments Med Refill 04/23/2024 Encounter Details Date Type Department Care Team (Late st Contact Info) Description 04/23/2024 Refill [facility] 230 [place] [address] Nafisa Frye DO [address] [place] [address] Social History Tobacco Use Types Packs/Day Years [...] Description 11/26/2024 3:00 PM EDT Office Visit [facility] [address] [place] [address] Howie Shaw MD [address] [place] [address] documented as of this encounter Visit Diagnoses Not on filedocumented in this encounter Additional Health Concerns Assessment Noted Time PHQ-9 Depression Total Score: 0 01/30/20 23 3:04 PM EDT documented as of this encounter Care Teams Plumbing Drafter Relationship Specialty Start Date End Date Howie Shaw MD [address] [place] [phone] PCP - General Internal Medicine 02/26/14 documented as of this encounter
--- OUTSIDE RECORDS SUMMARY | 2024-09-06 00:49 | XMS_ITS | Encounter Summary ---
Author Organization [employer] Address [address] [place] [address] 7 [place] [address] Care Team Providers Care Wood Heel Fitter Machine Name Role Phone Howie Shaw MD Primary Care Provide r Reason for Visit * Reason Comments Care Coordination [facility] outreach SDOH pe st control - referral completed Encounter Details Date Type Department Care Team (Latest Contact Info) Description 08/14/2024 Patient Outreach [facility] MEDICINE 230 [place] [address] Howie Shaw MD [address] [place] [address] Care Coordination ([facility] outreach SDOH pest control [...] Wednesdays, and Walk-In Urgent Care Located in [facility] of [facility]. Patient provided with after-hours line for [facility], , which offer night time triage service and option to transfer to front office specialist provider if needed. documented in this encounter Plan of Treatment Upcoming Encounters Date Type Department Care Team (Late st Contact Info) Description 11/26/2024 3:00 PM EDT Office Visit [facility] MEDICINE 230 [place] [address] Howie Shaw MD [address] [place] [address] documented as of this encounter Visit Diagnoses Not on filedocumented in this encounter Additional Health Concerns Assessment Noted Time PHQ-9 Depression Total Score: 5 04/30/20 24 2:46 PM EDT documented as of this encounter Care Teams Wood Heel Fitter Machine Relationship Specialty Start Date End Date Howie Shaw MD 230 [place] [address] PCP - General Internal Medicine 02/26/14 documented as of this encounter
--- OUTSIDE RECORDS SUMMARY | 2024-09-06 00:49 | XMS_ITS | Encounter Summary ---
Author Organization [employer] Address 75 [facility] 7t [place] [address] Care Team Providers Care Line Director Name Role Phone Howie Shaw MD Primary Care Provide r Reason for Visit * Reason Onset Date Comments Med Refill 04/23/2024 Encounter Details Date Type Department Care Team (Late st Contact Info) Description 04/23/2024 Refill [facility] 230 [place] [address] Collette Camejo FNP [address] [place] [address] Other hemorrhoids Social History Tobacco Use Types [...] Description 11/26/2024 3:00 PM EDT Office Visit [facility] [address] [place] [address] Howie Shaw MD [address] [place] [address] documented as of this encounter Visit Diagnoses Diagnosis Other hemorrhoids documented in this encounter Additional Health Concerns Assessment Noted Time PHQ-9 Depression Total Score: 0 01/30/20 23 3:04 PM EDT documented as of this encounter Care Teams Line Director Relationship Specialty Start Date End Date Howie Shaw MD [address] [place] [phone] PCP - General Internal Medicine 02/26/14 documented as of this encounter
--- OUTSIDE RECORDS SUMMARY | 2024-09-06 00:49 | XMS_ITS | Encounter Summary ---
Author Organization [employer] Address 75 [facility] 7 [place] [address] Care Team Providers Care Aerophysics Engineer Name Role Phone Howie Shaw MD Primary Care Provide r Reason for Visit * Reason Onset Date Comments Nurse Triage 08/12/2024 Encounter Details Date Type Department Care Team ([facility] st Contact Info) Description 08/12/2024 Telephone [facility]INE 230 [place] [address] Howie Shaw MD 230 [place] [address] Nurse Triage Social History Tobacco Use Types [...] RN - 08/12/2024 11:54 AM EST No obstetrical nurse needed as this typewriter assembler speaks Serbian. Call returned to Johanna Drew to triage [...] Description 11/26/2024 3:00 PM EDT Office Visit [facility] [address] [place] [address] Howie Shaw MD [address] [place] [address] documented as of this encounter Visit Diagnoses Not on filedocumented in this encounter Additional Health Concerns Assessment Noted Time PHQ-9 Depression Total Score: 5 04/30/20 24 2:46 PM EDT documented as of this encounter Care Teams Aerophysics Engineer Relationship Specialty Start Date End Date Howie Shaw MD [address] [place] [phone] PCP - General Internal Medicine 02/26/14 documented as of this encounter
--- OUTSIDE RECORDS SUMMARY | 2024-09-06 00:49 | XMS_ITS | Encounter Summary ---
Author Organization [employer] Address [address] [facility] 7t [place] [address] Care Team Providers Care Powerhouse Mechanic Name Role Phone Howie Shaw MD Primary Care Provide r Encounter Details Date Type Department Care Team ([facility] st Contact Info) Description 06/25/2023 Telephone [facility] MEDICINE [address] [place] [address] Howie Shaw MD [address] [place] [address] Social History Tobacco Use Types Packs/Day Years [...] Description 11/26/2024 3:00 PM EDT Office Visit [facility]INE [address] [place] [address] Howie Shaw MD [address] [place] [address] documented as of this encounter Visit Diagnoses Not on filedocumented in this encounter Additional Health Concerns Assessment Noted Time PHQ-9 Depression Total Score: 0 01/30/20 23 3:04 PM EDT documented as of this encounter Care Teams Powerhouse Mechanic Relationship Specialty Start Date End Date Howie Sahw MD [address] [place] [phone] PCP - General Internal Medicine 02/26/14 documented as of this encounter
--- OUTSIDE RECORDS SUMMARY | 2024-09-06 00:49 | XMS_ITS | Encounter Summary ---
Author Organization [employer] Address [address] [facility] 7t [place] [address] Care Team Providers Care Dyeing Machine Back Tender Name Role Phone Howie Shaw MD Primary Care Provide r Reason for Visit * Reason Comments Med Refill Encounter Details Date Type Department Care Team ([facility] st Contact Info) Description 05/26/2023 Refill [facility] 230 [place] [address] Nafisa Frye, 230 [place] [address] Social History Tobacco Use Types Packs/Day Years [...] Description 11/26/2024 3:00 PM EDT Office Visit [facility] [address] [place] [address] Howie Shaw MD [address] [place] [address] documented as of this encounter Visit Diagnoses Not on filedocumented in this encounter Additional Health Concerns Assessment Noted Time PHQ-9 Depression Total Score: 0 01/30/20 23 3:04 PM EDT documented as of this encounter Care Teams Dyeing Machine Back Tender Relationship Specialty Start Date End Date Howie Shaw MD 230 [place] [address] PCP - General Internal Medicine 02/26/14 documented as of this encounter
--- OUTSIDE RECORDS SUMMARY | 2024-09-06 00:49 | XMS_ITS | Encounter Summary ---
Author Organization [employer] [facility] Address [address] [place] [address] 7t [place] [address] Care Team Providers Care Corrosion Control Fitter Name Role Phone Howie Shaw MD Primary Care Provide r Encounter Details Date Type Department Care Team (Latest Contact Info) Description 06/01/2021 Abstract [facility] CONVERSIONS Dental, Provider, DDS Social History [...] Description 11/26/2024 3:00 PM EDT Office Visit [facility] MEDICINE [address] [place] [address] Howie Shaw MD [address] [place] [address] documented as of this encounter Visit Diagnoses Not on filedocumented in this encounter Care Teams Corrosion Control Fitter Relationship Specialty Start Date End Date Howie Shaw MD [address] [place] [address] PCP - General Internal Medicine 02/26/14 documented as of this encounter
--- OUTSIDE RECORDS SUMMARY | 2024-09-06 00:49 | XMS_ITS | Encounter Summary ---
Author Organization [employer] Address [address] [facility] 7 [place] [address] Care Team Providers Care Movie Star Name Role Phone Howie Shaw MD Primary Care Provide r Reason for Visit * Reason Onset Date Comments Referral 08/18/2024 Encounter Details Date Type Department Care Team ([facility] st Contact Info) Description 08/18/2024 Telephone [facility] [address] [place] [address] Howie Shaw MD [address] [place] [address] Referral Social History Tobacco Use Types Packs/Day [...] is your housing situation today? I have juadh vazquez 08/14/[address] you [...] 2:01 PM EST Received fax back from [facility] in regards to referral for Sleep Medicine, they stated that the pt hasn't been seen in this office. LB documented in this encounter Plan of Treatment Upcoming Encounters Date Type Department Care Team (Late st Contact Info) Description 11/26/2024 3:00 PM EDT Office Visit [facility] [address] [place], [place] [phone] Howie Shaw MD [address] [place] [address] documented as of this encounter Visit Diagnoses Not on filedocumented in this encounter Additional Health Concerns Assessment Noted Time PHQ-9 Depression Total Score: 5 04/30/20 24 2:46 PM EDT documented as of this encounter Care Teams Movie Star Relationship Specialty Start Date End Date Howie Shaw MD [address] [place] [address] PCP - General Internal Medicine 02/26/14 documented as of this encounter
--- OUTSIDE RECORDS SUMMARY | 2024-09-06 00:49 | XMS_ITS | Encounter Summary ---
Author Organization [employer] Address 75 [facility] 7t [place] [address] Care Team Providers Care Railroad Watchman Name Role Phone Howie Shaw MD Primary Care Provide r Encounter Details Date Type Department Care Team ([facility] st Contact Info) Description 08/12/2024 3:20 PM EST Office Visit [facility] [address] [place] [address] Josh Thomas MD [address] [place] [address] Influenza A (Primary Dx) Social History Tobacco [...] Johanna Drew is a 63 y.o. female. Reaming Press Operator: Michael SNIDER 5 days ago Johanna had onset of tactile fever, fever resolved [...] videos and all your education online visit, [email or web address] or scan this QR code with your smartphone. Access to this content will in one year. Gripe en los adultos Influenza, Adult A la gripe tambi?n se la conoce renita influenza. Es migdalia infecci?n que afecta las v?as respiratorias.Estas incluyen la nariz, la garganta, la tr?quea y los pulmones. La gripe es contagiosa. Dysart significa que se transmite f?cilmente de migdalia [...] Est?? embarazada. Oneill sistema inmunitario est?? d?trina. Oenill sistema inmunitario es el sistema de defensa de oneill cuerpo. Tiene migdalia afecci?n a maurice plazo, o cr?elkin, renita: ? Enfermedad pulmonar, card?james o renal. ? Diabetes. ? Un trastorno del h?gado. ? Asma. Tiene sobrepeso. Tiene anemia. Dysart ocurre cuando no tiene suficientes gl?bulos rojos [...] claudia s?ntomas. El m?dico puede indicarle que: [place] medicamentos de venta adrian. Divine mucho l?quido. La gripe suele desaparecer micki. Si tiene s?ntomas muy graves o problemas provocados por la gripe, es posible que necesite recibir tratamiento en un hospital. Siga estas instrucciones en oneill casa: Actividad Descanse todo lo que sea necesario. Duerma mucho. Qu?dese en oneill casa y no concurra al trabajo o a la escuela, renita se lo haya indicado oneill m?dico. ? Salga de oneill casa solo para ir al m?dico. ? No salga de oneill casa por otros motivos hasta que no haya tenido fiebre por 24?horas sin connor medicamentos. Comida y bebida [place] migdalia soluci?n de rehidrataci?n oral (oral rehydration [...] aire de oneill casa est?? m?s h?medo. Dysart puede facilitar la respiraci?n. Tambi?n debe limpiar [...] Reviewed: 2023-07-27 Elsevier Patient Education ? 2023 Plain Vanilla. documented in this encounter Plan of Treatment Upcoming Encounters Date Type Department Care Team (Late st Contact Info) Description 11/26/2024 3:00 PM EDT Office Visit [facility] MEDICINE 230 [place] [address] Howie Shaw MD [address] [place] [address] documented as of this encounter Procedures Procedure [...] PM EST) Influenza B Negative Negative, Indeterminate [facility] Swab 08/12/2024 3:21 PM EST us Josh Thomas MD POINT OF CARE TEST ENTER/EDIT OR DERABLES Final Result Performing Organization Address [facility] Co de Phone Number [facility] [address] [place] [phone] * (ABNORMAL) Influenza A (ID NOW Rapid Molecular) (08/12/2024 3:21 PM EST) Influenza A Positive( A) Negative, Indeterminate [facility] Swab 08/12/2024 3:21 PM EST us Josh Thomas MD POINT OF CARE TEST ENTER/EDIT OR DERABLES Final Result Performing Organization Address [facility] Co de Phone Number [facility] [address] [place] [phone] * POCT Rapid COVID Ag (08/12/2024 3:21 PM EST) Rapid COVID Ag Negative [facility] Swab 08/12/2024 3:21 PM EST us Josh Thomas MD POINT OF CARE TEST ENTER/EDIT OR DERABLES Final Result Performing Organization Address [facility] Phone Number [facility] [address] [place] [phone] documented in this encounter Visit Diagnoses Diagnosis Influenza A- Primary Influenza with other respiratory manifestations documented in this encounter Additional Health Concerns Assessment Noted Time PHQ-9 Depression Total Score: 5 04/30/20 24 2:46 PM EDT documented as of this encounter Care Teams Railroad Watchman Relationship Specialty Start Date End Date Howie Shaw MD [address] [place] [phone] PCP - General Internal Medicine 02/26/14 documented as of this encounter
--- OUTSIDE RECORDS SUMMARY | 2024-09-06 00:49 | XMS_ITS | Encounter Summary ---
Author Organization [employer] Address [address] [facility] 7t [place] [address] Care Team Providers Care Restaurant Hourly Manager Name Role Phone Howie Shaw MD Primary Care Provide r Encounter Details Date Type Department Care Team (Latest Contact Info) Description 08/26/2024 Travel Social History Tobacco Use Types Packs/Day [...] Description 11/26/2024 3:00 PM EDT Office Visit [facility] [address] [place] [address] Howie Shaw MD [address] [place] [address] documented as of this encounter Visit Diagnoses Not on filedocumented in this encounter Additional Health Concerns Assessment Noted Time PHQ-9 Depression Total Score: 5 04/30/20 24 2:46 PM EDT documented as of this encounter Care Teams Restaurant Hourly Manager Relationship Specialty Start Date End Date Howie Shaw MD [address] [place] [address] PCP - General Internal Medicine 02/26/14 documented as of this encounter
--- OUTSIDE RECORDS SUMMARY | 2024-09-06 00:49 | XMS_ITS | Encounter Summary ---
Author Organization [employer] Address [address] [place] [address] 7 [place] [address] Care Team Providers Care Piano Accompanist Name Role Phone Howie Shaw MD Primary Care Provide r Reason for Visit * Reason Comments Pre-visit Planning SDOH Screening posit harper and Tobacco screening negative Encounter Details Date Type Department Care Team ([facility] st Contact Info) Description 08/14/2024 Patient Outreach [facility] MEDICINE [address] [place] [address] Howie Shaw MD [address] [place] [address] Pre-visit Planning (SDOH Screening positive and Tobacco [...] Upcoming Encounters Date Type Department Care Team ([facility] st Contact Info) Description 11/26/2024 3:00 PM EDT Office Visit [facility] [address] [place] [address] Howie Shaw MD [address] [place] [address] documented as of this encounter Visit Diagnoses Not on filedocumented in this encounter Additional Health Concerns Assessment Noted Time PHQ-9 Depression Total Score: 5 04/30/20 24 2:46 PM EDT documented as of this encounter Care Teams Piano Accompanist Relationship Specialty Start Date End Date Howie Shaw MD [address] [place] [address] PCP - General Internal Medicine 02/26/14 documented as of this encounter
--- OUTSIDE RECORDS SUMMARY | 2024-09-06 00:49 | XMS_ITS | Encounter Summary ---
Author Organization [email or web address] Address [address] [facility] 7t [place] [address] Care Team Providers Care Chauffeur Motorbus Name Role Phone Howie Shaw MD Primary Care Provide r Reason for Visit * Reason Comments Med Refill Encounter Details Date Type Department Care Team ([facility] st Contact Info) Description 04/26/2023 Refill [facility] MED[facility]INE [address] [place] [address] Howie Shaw MD [address] [place] [address] Social History Tobacco Use Types Packs/Day Years [...] 11/26/2024 3:00 PM EDT Office Visit [facility] MED[facility]INE [address] [place] [address] Howie Shaw MD [address] [place] [address] documented as of this encounter Visit Diagnoses Not on filedocumented in this encounter Additional Health Concerns Assessment Noted Time PHQ-9 Depression Total Score: 0 01/30/20 23 3:04 PM EDT documented as of this encounter Care Teams Chauffeur Motorbus Relationship Specialty Start Date End Date Howie Shaw MD [address] [place] [address] PCP - General Internal Medicine 02/26/14 documented as of this encounter
--- OUTSIDE RECORDS SUMMARY | 2024-09-06 00:49 | XMS_ITS | Encounter Summary ---
Author Organization [employer] Address [address] [facility] 7t [place] [address] Care Team Providers Care Cath Lab Manager Name Role Phone Howie Shaw MD Primary Care Provide r Encounter Details Date Type Department Care Team ([facility] st Contact Info) Description 08/03/2024 Orders Only [facility] MEDICINE [address] [place] [address] Howie Shaw MD [address] [place] [address] Social History Tobacco Use Types Packs/Day Years [...] Description 11/26/2024 3:00 PM EDT Office Visit [facility] [address] [place] [address] Howie Shaw MD [address] [place] [address] documented as of this encounter Procedures Procedure Name Priority Date/Time Associated Diagnosis Comments BI MAMMOGRAM SCREENING TOMOSYNTHESIS BILATERAL Routine 08/03/2024 1:55 PM EST documented in this encounter Results * BI Mammogram Screening Tomosynthesis Bilateral (08/03/2024 1:55 PM EST) Anatomical Region Laterality Modality Breast Bilateral Mammography 08/03/2024 1:55 PM EST Narrative 08/09/2024 5:55 PM EST ? [facility] ? [address] ?[place] [address] ? Mammography Report ? Signed ? Patient: Drew,Johanna ?MR#: [id number] ? : 1960 ?Acct:[id number] ? Age/Sex: 63 / F ?ADM Date: 02/03/25 ? Loc: HO.MAMMO ? Attending Dr: Howie Adams MD ? Ordering Physician: Howie Adams MD ?Resu ?? lts: 1Negative ? Date of Service: 08/03/24 ?Follow Up: 1 Year From Orig ?? inal Mammogram ? Procedure(s): MM tomosynthesis screening BI ?? Accession Number(s): [id number] ? cc: Howie Adams MD ? EXAMINATION: [...] DD/ 1355 ? TD/TT: 08/03/24 1420 ? Pharmacy Care Coordinator: ? Procedure Note Donkeninterpreter, Image - 08/09/2024 Annie [facility] [address] [place] [address] Mammography Report Signed Patient: Fahad Drew#: [id number] : 1960cct:[id number] Age/Sex: 63 / FADM Date: 08/03/24 Loc: HO.MAMMO Attending Dr: Howie Adams MD Ordering Physician: Howie Adams MDResu lts: 1Negative Date of Service: 08/03/24Follow Up: 1 Year From Orig inal Mammogram Procedure(s): MM tomosynthesis screening BI Accession Number(s): [id number] cc: Howie Adams MD EXAMINATION: MM SCREENING [...] 08/09/24 1753 DD/ 1355 TD/TT: 08/03/24 1420 Pharmacy Care Coordinator: Howie Smith MD IMG BI PROCEDURES Bony nino Result - Final documented in this encounter Visit Diagnoses Not on filedocumented in this encounter Additional Health Concerns Assessment Noted Time PHQ-9 Depression Total Score: 5 04/30/20 24 2:46 PM EDT documented as of this encounter Care Teams Cath Lab Manager Relationship Specialty Start Date End Date Howie Shaw MD [address] [place] [id number] PCP - General Internal Medicine 02/26/14 documented as of this encounter
--- OUTSIDE RECORDS SUMMARY | 2024-09-06 00:49 | XMS_ITS | Encounter Summary ---
Author Organization [employer] Address [address] [facility] 7t [place] [address] Care Team Providers Care Meat Trimmer Name Role Phone Howie Shaw MD Primary Care Provide r Reason for Visit * Reason Onset Date Comments Med Refill 04/23/2024 Encounter Details Date Type Department Care Team (Late st Contact Info) Description 04/23/2024 Refill [facility] [address] [place] [address] Ashleigh Wilkins MD 230 [place] [address] Social History Tobacco Use Types Packs/Day Years [...] Description 11/26/2024 3:00 PM EDT Office Visit [facility] MEDICINE [address] [place] [address] Howie Shaw MD [address] [place] [address] documented as of this encounter Visit Diagnoses Not on filedocumented in this encounter Additional Health Concerns Assessment Noted Time PHQ-9 Depression Total Score: 0 01/30/20 23 3:04 PM EDT documented as of this encounter Care Teams Meat Trimmer Relationship Specialty Start Date End Date Howie Shaw MD [address] [place] [address] PCP - General Internal Medicine 02/26/14 documented as of this encounter
--- OUTSIDE RECORDS SUMMARY | 2024-09-06 00:49 | XMS_ITS | Encounter Summary ---
Author Organization [employer] Address [address] [facility] 7 [place] [address] Care Team Providers Care Sweat Band Sewer Name Role Phone Howie Shaw MD Primary Care Provide r Reason for Visit * Reason Onset Date Comments Chart Prep 08/12/2024 Encounter Details Date Type Department Care Team ([facility] st Contact Info) Description 08/12/2024 Telephone [facility] MEDICINE [address] [place] [address] Howie Shaw MD [address] [place] [address] Chart Prep Social History Tobacco Use Types [...] the past 12 months, has t he [employer], gas, oil or water [employer] threatened to shut off services in your [...] Description 11/26/2024 3:00 PM EDT Office Visit [facility] MED[facility] [address] [place], [place] [phone] Howie Shaw MD [address] [place] [address] documented as of this encounter Visit Diagnoses Not on filedocumented in this encounter Additional Health Concerns Assessment Noted Time PHQ-9 Depression Total Score: 5 04/30/20 24 2:46 PM EDT documented as of this encounter Care Teams Sweat Band Sewer Relationship Specialty Start Date End Date Howie Shaw MD [address] [place] [address] PCP - General Internal Medicine 02/26/14 documented as of this encounter
--- OUTSIDE RECORDS SUMMARY | 2024-09-06 00:49 | XMS_ITS | Encounter Summary ---
Author Organization [facility] [facility] Address [address] [facility] [address] [place] [address] Care Team Providers Care Motorcoach Driver Name Role Phone Howie Shaw MD Primary Care Provide r Reason for Referral * Consultation (Routine) - Authorized Specialty Diagnoses / Procedures Referred By Contac t Referred To Contact Podiatry Diagnoses Type 2 diabetes mellitus without complication, without long-term current use of insulin ([facility]) Howie Shaw MD [address] [place] [address] Phone: tel: fax: Randy Conley DPM [address] [place] [address] Phone: tel: fax: Referral ID Status Reason Start Date Expiration Date Visits Requested Visits Authorized [id number] Authorized Specialty Services Required 08/27/2024 08/27/2025 1 1 Reason for Visit * Reason Comments Diabetes Encounter Details Date Type Department Care Team ([facility] st Contact Info) Description 08/27/2024 3:00 PM EST Office Visit [facility] [address] [place] [address] Howie Shaw MD [address] [place], [place] [phone] Obstructive sleep apnea syndrome (Primary Dx); Type 2 diabetes mellitus without complication, without long-term current use of insulin (CMS/HCC); Elevated LDL cholesterol level; Preventative health care Social History Tobacco Use Types Packs/Day Years [...] is your housing situation today? I have judahdamien vazquez 08/14/[address] you [...] Sign Reading Time Taken Comments Blood Pressure 138/82 08/27/2024 3:20 PM EST Pulse 75 08/27/2024 2:48 PM EST Temperature 36.4 ??C (97.5 ??F) 08/27/2024 2:48 PM ES T Respiratory Rate 20 08/27/2024 2:48 PM EST Oxygen Saturation 99% 08/27/2024 2:48 PM EST Inhaled Oxygen Concentration - - Weight 85.8 kg (189 lb 3.2 oz) 08/27/2024 2:48 P M EST Height 160 cm (5' 3 ) 08/27/2024 2:48 PM EST Body Mass Index 33.52 08/27/2024 2:48 PM EST documented in this encounter Progress Notes * Howie Smith MD - 08/27/2024 3:00 PM EST SKYLA Drew is a 63 y.o. female who presents for Diabetes. Diabetes She presents for her follow-up diabetic visit. She has type 2 diabetes mellitus. Pertinent negatives for hypoglycemia include no headaches. Pertinent negatives for diabetes include no chest pain. Review of Systems Constitutional: Negative for fever. HENT: Negative for sore throat. Respiratory: Negative for cough and shortness of breath. Cardiovascular: Negative for chest pain. Gastrointestinal: Negative for abdominal pain. Neurological: Negative for headaches. No Known Allergies OBJECTIVE Vitals: 08/27/24 1448 08/27/24 1520 BP: (!) 142/80 138/82 BP Location: Left arm Left arm Patient Position: Sitting Sitting BP Cuff Size: Adult Pulse: 75 Resp: 20 Temp: 97.5 ??F (36.4 ??C) TempSrc: Temporal SpO2: 99% Weight: 189 lb 3.2 oz (85.8 kg) Height: 5' 3 (1.6 m) Physical Exam Vitals reviewed. Constitutional: Appearance: Normal appearance. HENT: Head: Normocephalic and atraumatic. Right Ear: External ear normal. Left Ear: External ear normal. Nose: Nose normal. Mouth/Throat: Mouth: Mucous membranes are moist. Eyes: Conjunctiva/sclera: Conjunctivae normal. Cardiovascular: Rate and Rhythm: Normal rate and regular rhythm. Pulmonary: Effort: Pulmonary effort is normal. Breath sounds: Normal breath sounds. Skin: General: Skin is warm. Neurological: Mental Status: She is alert. Mental status is at baseline. Assessment/Plan Problem List Items Addressed This Visit Type 2 diabetes mellitus without complication (CMS/HCC) Pt is here for a follow up regarding her Diabetes Mellitus DM uncontrolled She is on Trulicity 0.75 once a week, She was on a regimen of Metformin XR 500 mg po q pm. Unfortunately she developed hives from it and it was then discontinued. It is unclear that this is the culprit since pt still develops hives off the Metformin . Hgb A1c 06/26/2025: 7.2 Eye exam 11/07/2023 Dr. Milian Microalbumin 08/05/2020 was 0.2 Pt not on an LINDA inhibitor/ARB will repeat Plan: Increase Trulicity to 1.5 once a week 3 month f/u Pt advised to: adhere to diabetic diet check your blood sugars regularly check your feet on a daily basis Relevant Medications Dulaglutide (Trulicity) 1.5 MG/0.5ML solution auto-injector Other Relevant Orders POCT Glucose (Completed) POCT HGB A1C (Completed) Referral to Podiatry Obstructive sleep apnea syndrome - Primary Dx in 07/28/08 she had been using CPAP ever since with good resolution of her chronic headaches. Pt back under the care of Dr. Fernandez last note 07/2024 Pt reports her Cpap machine is working Doing well Elevated LDL cholesterol level Lipid profile Lab Results Component Value Date TRIG 81 08/25/2024 TRIG 106 02/06/2023 CHOL 167 08/25/2024 CHOL 188 02/06/2023 LDLCHOLCAL 109 (H) 08/25/2024 LDLCHOLCAL 124 02/06/2023 HDL 42 08/25/2024 HDL 43 02/06/2023 Given the fact that she is diabetic she would benefit from statin Will start Atorvastatin 20 mg po at bedtime The 10-year ASCVD risk score (Ezra CALIXTO, et al., 2019) is: 10.7% Values used to calculate the score: Age: 63 years Sex: Female Is Non- : No Diabetic: Yes Tobacco smoker: No Systolic Blood Pressure: 142 mmHg Is BP treated: No HDL Cholesterol: 42 mg/dL Total Cholesterol: 167 mg/dL Relevant Medications atorvastatin (Lipitor) 20 MG tablet Preventative health care Mammogram: NL : 08/03/2024 Normal Pap Smear: at [facility] 11/27/2016 normal. Pt is being [place] [facility] Colonoscopy: 12/[address] Andreas bravo aside from Hemorrhoids; repeat in 10 years documented in this encounter Miscellaneous Notes * Assessment & Plan Note - Howie Smith MD - 08/27/2024 3:27 PM EST Associated Problem(s): Preventative health care Mammogram: NL : 08/03/2024 Normal Pap Smear: at [facility] 11/27/2016 normal. Pt is being followed [place] [facility] Colonoscopy: 12/[address] Andreas bravo aside from Hemorrhoids; repeat in 10 years * Assessment & Plan Note - Howie Smith MD - 08/27/2024 3:17 PM EST Associated Problem(s): Elevated LDL cholesterol level Lipid profile Lab Results Component Value Date TRIG 81 08/25/2024 TRIG 106 02/06/2023 CHOL 167 08/25/2024 CHOL 188 02/06/2023 LDLCHOLCAL 109 (H) 08/25/2024 LDLCHOLCAL 124 02/06/2023 HDL 42 08/25/2024 HDL 43 02/06/2023 Given the fact that she is diabetic she would benefit from statin Will start Atorvastatin 20 mg po at bedtime The 10-year ASCVD risk score (Ezra CALIXTO, et al., 2019) is: 10.7% Values used to calculate the score: Age: 63 years Sex: Female Is Non- : No Diabetic: Yes Tobacco smoker: No Systolic Blood Pressure: 142 mmHg Is BP treated: No HDL Cholesterol: 42 mg/dL Total Cholesterol: 167 mg/dL * Assessment & Plan Note - Howie Smith MD - 08/27/2024 3:16 PM EST Associated Problem(s): Type 2 diabetes mellitus without complication (CMS/HCC) Pt is here for a follow up regarding her Diabetes Mellitus DM uncontrolled She is on Trulicity 0.75 once a week, She was on a regimen of Metformin XR 500 mg po q pm. Unfortunately she developed hives from it and it was then discontinued. It is unclear that this is the culprit since pt still develops hives off the Metformin . Hgb A1c 06/26/2025: 7.2 Eye exam 11/07/2023 Dr. Milian Microalbumin 08/05/2020 was 0.2 Pt not on an LINDA inhibitor/ARB will repeat Plan: Increase Trulicity to 1.5 once a week 3 month f/u Pt advised to: adhere to diabetic diet check your blood sugars regularly check your feet on a daily basis * Assessment & Plan Note - Howie Smith MD - 08/27/2024 3:14 PM EST Associated Problem(s): Obstructive sleep apnea syndrome Dx in 07/28/08 she had been using CPAP ever since with good resolution of her chronic headaches. Pt back under the care of Dr. Fernandez last note 07/2024 Pt reports her Cpap machine is working Doing well documented in this encounter Plan of Treatment Upcoming Encounters Date Type Department Care Team (Late st Contact Info) Description 11/26/2024 3:00 PM EDT Office Visit [facility] MED[facility]INE [address] [place] [address] Howie Shaw MD [address] [place], [place] [phone] Scheduled Referrals Name Type Priority Associated Diagnoses Orde r Schedule Referral to Podiatry Outpatient Referral Routine Type 2 diabetes mellitus without complication, without long-term current use of insulin (CMS/HCC) Expected: 08/27/2024 (Approximate), Expires: 08/27/2025 documented as of this encounter Procedures Procedure Name Priority Date/Time Associated Diagnosis Comments POCT GLYCATED HEMOGLOBIN, TOTAL Routine 08/27/2024 3:09 PM EST Type 2 diabetes mellitus without complication, without long-term current use of insulin ([facility]) POCT GLUCOSE Routine 08/27/2024 2:59 PM EST Type 2 diabetes mellitus without complication, without long-term current use of insulin ([facility]) documented in this encounter Results * (ABNORMAL) POCT HGB A1C (08/27/2024 3:09 PM EST) Hemoglobin A1C 7.2(A) 4.0 - 6.0 % QC Media Lot # [id number] Lot# Expiration Date Blood 08/27/2024 3:09 PM EST Howie Smith MD POINT OF CARE TEST EN TER/EDIT ORDERABLES Final Result * POCT Glucose (08/27/2024 2:59 PM EST) Pathologist [facility] Glucose Blood, POC 96 60 - 200 mg/dL QC Media Lot # [id number] Lot# Expiration Date [id number] Blood Capillary blood specimen / Unknown 08/27/2024 2:59 PM EST Howie Smith MD POINT OF CARE TEST EN TER/EDIT ORDERABLES Final Result documented in this encounter Visit Diagnoses Diagnosis Obstructive sleep apnea syndrome- Primary Obstructive sleep apnea (adult) (pediatric) Type 2 diabetes mellitus without complication, without long-term current use of insulin ([facility]) Elevated LDL cholesterol level Preventative health care Routine general medical examination at a health care facility documented in this encounter Additional Health Concerns Assessment Noted Time PHQ-9 Depression Total Score: 5 04/30/20 24 2:46 PM EDT documented as of this encounter Care Teams Motorcoach Driver Relationship Specialty Start Date End Date Howie Shaw MD [address] [place] [address] PCP - General Internal Medicine 02/26/14 documented as of this encounter
--- OUTSIDE RECORDS SUMMARY | 2024-09-06 00:49 | XMS_ITS | Encounter Summary ---
Author Organization [employer] [facility] Address [address] [facility] 7t [place] [address] Care Team Providers Care Sales Review Clerk Name Role Phone Howie Shaw MD Primary Care Provide r Encounter Details Date Type Department Care Team (Latest Contact Info) Description 09/24/2018 Abstract [facility] CONVERSIONS Dental, Provider, DDS Social History [...] Description 11/26/2024 3:00 PM EDT Office Visit [facility] MEDICINE [address] [place] [address] Howie Shaw MD [address] [place] [address] documented as of this encounter Visit Diagnoses Not on filedocumented in this encounter Care Teams Sales Review Clerk Relationship Specialty Start Date End Date Howie Shaw MD [address] [place] [address] PCP - General Internal Medicine 02/26/14 documented as of this encounter
[2024-09-06 01:16] LABS: Alanine Aminotransferase 27 U/L (0-31); Albumin Level 4.1 g/dL (3.5-5.0); Alkaline Phosphatase 102 U/L (39-117); Anion Gap 16 (12-20); Aspartate Amino Transferase 36 U/L (5-31); Bilirubin Total 0.3 mg/dL (0.0-1.0); Blood Urea Nitrogen 23 mg/dL (9-16); Carbon Dioxide 22 mmol/L (22-29); Chloride 106 mmol/L (96-108); Creatinine Clr Calc Pharmacy 57.8; Estimated Glomerular Filt Rate 52; Glucose Random 121 mg/dL (60-115); Potassium 4.3 mmol/L (3.3-5.1); Sodium 140 mmol/L (135-145); Total Protein 9.2 g/dL (6.5-8.0)
[2024-09-06 01:24] LABS: Influenza A PCR NEGATIVE (Negative); Influenza B PCR NEGATIVE (Negative); Resp Syncy Virus RNA Qual PCR NEGATIVE (Negative); SARS COV2 PCR INHOUSE NEGATIVE (Negative)
[2024-09-06 03:08] VITALS: BP 118/70; PULSE 80; RESP 18; O2SAT 97
[2024-09-06 04:22] VITALS: BP 127/73; PULSE 75
[2024-09-06 04:23] VITALS: BP 133/71; PULSE 79
[2024-09-06 04:24] VITALS: BP 129/81; PULSE 88
[2024-09-06 04:58] VITALS: BP 125/72; PULSE 88; RESP 16; TEMP 36.6; O2SAT 98
== END 2024-09-06 05:00 | disposition home or self-care (01) ==
PROVIDERS: Emergency Provider Internal Medicine; PCP Internal Medicine
DX: R55 Syncope and collapse (principal); R42 Dizziness and giddiness; R94.31 Abnormal electrocardiogram [ECG] [EKG]; Z03.818 Encounter for observation for suspected exposure to other biological agents ruled out; Z79.899 Other long term (current) drug therapy
CPT/HCPCS: 0241U; 36415; 80053; 85025; 93005; 99283; 99284

== ENCOUNTER → 2024-09-06 00:29 | Outpatient (BNV) | payer OTHER, SELFPAY | PROVIDERS: Emergency Provider Internal Medicine; PCP Internal Medicine; Visit Provider Internal Medicine Cardiovascular Disease | DX: R42 Dizziness and giddiness (principal); R94.31 Abnormal electrocardiogram [ECG] [EKG] | CPT/HCPCS: 93010 ==

== ENCOUNTER 2024-11-02 13:27 | Outpatient (AMB) | payer OTHER, SELFPAY ==
--- NOTE | 2024-11-02 13:32 | MHC.OFFVIS ---
Vital Signs 11/02/24 13:34 Height 5 ft 3 in Weight 185 lb 3.013 oz BMI 32.8 BP 152/86 H Blood Pressure Location Rt brachial Position Sitting Pulse 73 Pulse Source Pulse Oximeter Pulse Oximetry (%) 99 Oxygen Delivery Method Room Air Intake Visit Reasons: Obstructive sleep apnea Bank Officer Required: Yes Bank Officer Language: Prenatal Nurse Name: Ashleigh Aranda Allergies No Known Allergies Allergy (Verified 11/02/24 13:41) Medication List - Last Reconciled 11/02/24 by Neda Fernandez MD acetaminophen ER (Mapap Arthritis Pain) 650 mg PO Q8H PRN naproxen 500 mg PO BID Do you need a note to return to daycare/school/sports/work: No HPI HPI Obstructive sleep apnea: Details: This 64 years old Liberian-speaking very pleasant female is here after 6 months for follow-up. She is a case of gross obesity and obstructive sleep apnea for the past many years. She uses her CPAP very regularly every night and sleeps well. She does not express any issues regarding her CPAP mask and the device( fullface) Breathing has been okay she has not required to use any bronchodilator inhaler. And also denies any nasal congestion. [facility] Medical History Tachycardia PONV (postoperative nausea and vomiting) Type II diabetes mellitus Obesity Depressive disorder Chronic headache disorder Family history of breast cancer Colon cancer screening Nocturnal hypoxemia Cough MAYCOL on CPAP Obesity (BMI 30-39.9) Surgical History History of tubal ligation Hx of cholecystectomy Hx of colonoscopy Social History Alcohol intake: never Patient Tobacco Use Status: Former Tobacco user Review of Systems Const All systems reviewed & are unremarkable except as noted in HPI and below ENT Reports nasal congestion (mild off and on .) Card Denies chest pain, Denies syncope, Denies irregular heart rhythm and Denies dyspnea on exertion Resp Denies cough, Denies dyspnea on exertion and Denies wheezing GI Reports no additional complaints Musc Reports no additional complaints Neuro Reports no additional complaints and Denies syncope Psych Reports no additional complaints Aller/Immun Denies wheezing Physical Exam Const General: healthy appearing, comfortable, no acute distress, alert and awake Orientation/consciousness: patient oriented x3 HEENT Head: Yes normal to inspection General nose exam: No nasal polyps present and No nasal discharge present Face and sinus: Yes sinuses nontender Mouth: oropharynx normal Throat: Yes posterior oropharynx normal Eyes General: appearance normal, both eyes and all related structures Neck Neck: Yes normal visual inspection, Yes no lymphadenopathy, Yes trachea midline and Yes no JVD Thyroid: Thyroid normal Chest Chest palpation & inspection: normal inspection of the chest and normal palpation of entire chest wall Resp Auscultation: clear to auscultation bilaterally, no crackles and no wheezes Cardio Palpation: normal PMI Rate: regular rate Rhythm: regular rhythm Heart sounds: no gallops and no murmurs Peripheral pulses: Peripheral pulses 2+ throughout GI Palpation (GI): Soft to palpation, nontender, No hepatosplenomegaly present and no masses Auscultation: normal bowel sounds Back/Spine/Pelvis Thoracic/Lumbar Spine: thoracic and lumbar spine normal to inspection Skin General skin exam: no rashes or lesions noted Neuro General: patient oriented x3 and no focal motor deficits Cranial nerves: Yes CN's II-XII intact bilaterally Extrem General: Yes normal to inspection, Yes no clubbing, cyanosis or edema, Yes no calf tenderness and No venous stasis dermatitis Psych Appearance: grossly normal Speech and movement: Normal speech and movement present Results Reviewed Results Reviewed: Compliance report not available but she states that she uses it regularly every night. Assessment & Plan Assessment & Plan (1) Obesity (BMI 30-39.9): Comment: MODERATELY SEVERE OBESITY IS CHRONIC AND THE CAUSE FOR HER OBSTRUCTIVE SLEEP APNEA . SHE REPORTS VERY HAPPILY THAT SHE HAS LOST ABOUT 9 LB OF WEIGHT SINCE LAST VISIT. Code(s): E66.9 - Obesity, unspecified Category: Medical Plan: COMMENDED FOR LOSING WEIGHT AND ENCOURAGED TO KEEP ON WALKING AND CUT DOWN THE CALORIES INTAKE. (2) MAYCOL on CPAP: Comment: She is a well known case of OBSTRUCTIVE SLEEP APNEA. Which has been well treated with the use of CPAP, pressure 8 cm . Using CPAP regularly every night and sleeps well. Code(s): G47.33 - Obstructive sleep apnea (adult) (pediatric); Z99.89 - Dependence on other enabling machines and devices Category: Medical Plan: COMMENDED FOR GOOD COMPLIANCE AND ADVISED TO KEEP ON USING THE CPAP EVERY NIGHT. Coding Level of Care Code Est Pt Level 3 (93626) Diagnoses Obesity (BMI 30-39.9) E66.9 MAYCOL on CPAP G47.33; Z99.89
[2024-11-02 13:34] VITALS: BP 152/86; PULSE 73; O2SAT 99; BMI 32.8
--- OUTSIDE RECORDS SUMMARY | 2024-11-02 14:54 | XMS_ITS | Encounter Summary ---
Author Organization [employer] Address [address] [facility] 7t [place] [address] Care Team Providers Care Barrel Tester And Drainer Name Role Phone Howie Shaw MD Primary Care Provide r Reason for Visit * Reason Comments Med Refill Encounter Details Date Type Department Care Team ([facility] st Contact Info) Description 05/26/2023 Refill [facility] MEDICINE [address] [place] [address] Nafisa Frye, [address] [place] [address] Social History Tobacco Use Types Packs/Day Years [...] 3:00 PM EDT Office Visit [facility] MEDICINE [address] [place] [address] Howie Shaw MD [address] [place] [address] 12/21/2024 1:45 PM EDT Office Visit [facility] OPTOMETRY [address] [place] [address] Tarka, Ashley, OD [address] [place] [address] documented as of this encounter Visit Diagnoses Not on filedocumented in this encounter Additional Health Concerns Assessment Noted Time PHQ-9 Depression Total Score: 0 01/30/20 23 3:04 PM EDT documented as of this encounter Care Teams Barrel Tester And Drainer Relationship Specialty Start Date End Date Howie Shaw MD [address] [place] [address] PCP - General Internal Medicine 02/26/14 documented as of this encounter
--- OUTSIDE RECORDS SUMMARY | 2024-11-02 14:54 | XMS_ITS | Clinical Summary ---
Author Organization [address] [facility] Address [address] [place] [address] Phone Care Team Providers Care Design Director Name Role Phone Howie Adams MD Primary Care [facility] Medical History Medical History Date Comments Esophageal reflux DX:Esophageal reflux; COMMENT: years ago Essential hypertension DX:Essent ial hypertension Social History Tobacco Use Types Packs/Day Years Used Date Smoking Tobacco: Never Smokeless Tobacco: Never Alcohol Use Standard Drinks/Week Comments Never 0 (1 standard drink = 0.6 oz pur e alcohol) Comments Unknown Sex and Gender Information Value Date Recorded Sex Assigned at Not on file Legal Sex Female 3:33 PM EST Gender Identity Not on file Sexual Orientation Not on file Obstetrics History Last Filed Vital Signs Vital Sign Reading Time Taken Comments Blood Pressure - - Pulse - - Temperature - - Respiratory Rate - - Oxygen Saturation - - Inhaled Oxygen Concentration - - Weight 87.5 kg (193 lb) 01/16/2022 1:53 PM EDT Height 160 cm (5' 3 ) 01/16/2022 1:53 PM EDT Body Mass Index 34.19 01/16/2022 1:53 PM EDT Plan of Treatment Upcoming Encounters Date Type Department Care Team (Late st Contact Info) Description 11/25/2024 1:15 PM EDT Consult Orthopedic Surgery - [place] [address] [facility] [address] [place] [phone] Manish Evans DPM [address] [address] Health Maintenance Due Date Last Done Comments Breast Cancer Screening 1960 Diabetes: Annual GFR (Glomer ular Filtration Rate) 1960 Diabetes: Annual Foot Exam 1970 Diabetes: Annual Retina Eye Exam 1970 DTaP,Tdap,and Td Vaccines (1 - Tdap) 10/08/1979 Pneumococcal Vaccine: 50+ Ye ars (1 of 2 - PCV) 10/08/1979 Pneumococcal Vaccine: Pediat rics (0 to 5 Years) and At-Risk Patients (6 to 64 Years) (1 of 2 - PCV) 10/08/1979 Cervical Cancer Screening: P ap Smear 1981 Zoster Vaccines (1 of 2) 2010 Cholesterol Screening (Lipid Panel) 05/30/2022 Colorectal Cancer Screening: Colonoscopy 05/30/2022 Depression Screening 05/30/2022 HIV Screening 05/30/2022 Hepatitis C Screening 05/30/2022 Medicare Annual Wellness Visit 05/30/2022 Social Influencers of Health Screening 05/30/2022 COVID-19 Vaccine ( - 2023-2 5 season) 2024 Diabetes: Annual Urine Albumin-Creatinine Ratio (uACR) 09/15/2024 Diabetes: Blood Sugar Contro l Test (HGBA1C) 09/15/2024 Influenza Vaccine (Season Ended) 2025 RSV Immunization Adult Patie nts (1 - 1-dose 75+ series) 10/08/2035 HIB Vaccines Aged Out No longer eligi ble based on patient's age to complete this topic HPV Vaccines Aged Out No longer eligi ble based on patient's age to complete this topic Hepatitis A Vaccines Aged Out No long er eligible based on patient's age to complete this topic Hepatitis B Vaccines Aged Out No long er eligible based on patient's age to complete this topic IPV Vaccines Aged Out No longer eligi ble based on patient's age to complete this topic MMR Vaccines Aged Out No longer eligi ble based on patient's age to complete this topic Meningococcal ACWY Vaccine Aged Out N o longer eligible based on patient's age to complete this topic Meningococcal B Vaccine Aged Out No l onger eligible based on patient's age to complete this topic RSV Immunization Patients Un germaine 20 months Aged Out No longer eligible b ased on patient's age to complete this topic Varicella Vaccines Aged Out No longer eligible based on patient's age to complete this topic Insurance [facility] MEDICARE Member Subscriber Plan / Payer (Ef fective 2024-Present) Name:Johanna Drew Relation to Subscriber:Self Name:Johanna Drew Payer ID:[id number] Group ID:Not on file Type:Not on file Address: [place] [address] [address] [phone] Care Teams Design Director Relationship Specialty Start Date End Date Howie Adams MD [address] [place] [phone] PCP - General Internal Medicine 01/10/22
--- OUTSIDE RECORDS SUMMARY | 2024-11-02 14:54 | XMS_ITS | Encounter Summary ---
Author Organization [employer] Address [address] [facility] 7t [place] [address] Care Team Providers Care Avionics Supervisor Name Role Phone Hoiwe Shaw MD Primary Care Provide r Reason for Visit * Reason Onset Date Comments Med Refill 04/23/2024 Encounter Details Date Type Department Care Team (Late st Contact Info) Description 04/23/2024 Refill [facility] MEDICINE [address] [place] [address] Nafisa Frye DO [address] [place] [address] Social History Tobacco Use Types Packs/Day Years [...] 11/26/2024 3:00 PM EDT Office Visit [facility] MEDICINE [address] [place] [address] Howie Shaw MD [address] [place] [address] 12/21/2024 1:45 PM EDT Office Visit [facility] OPTOMETRY [address] [place] [address] TarkaRebekahAshley, OD [address] [place] [address] documented as of this encounter Visit Diagnoses Not on filedocumented in this encounter Additional Health Concerns Assessment Noted Time PHQ-9 Depression Total Score: 0 01/30/20 23 3:04 PM EDT documented as of this encounter Care Teams Avionics Supervisor Relationship Specialty Start Date End Date Howie Shaw MD [address] [place] [address] PCP - General Internal Medicine 02/26/14 documented as of this encounter
--- OUTSIDE RECORDS SUMMARY | 2024-11-02 14:54 | XMS_ITS | Encounter Summary ---
Author Organization [employer] Address [address] [facility] 7t [place] [address] Care Team Providers Care Cigarette Machine Filler Name Role Phone Howie Shaw MD Primary Care Provide r Reason for Visit * Reason Onset Date Comments Med Refill 04/23/2024 Encounter Details Date Type Department Care Team (Late st Contact Info) Description 04/23/2024 Refill [facility] [address] [place] [address] Ashleigh Wilkins MD [address] [place] [address] Social History Tobacco Use Types Packs/Day Years [...] Description 11/26/2024 3:00 PM EDT Office Visit [facility] MEDICINE [address] [place] [address] Howie Shaw MD [address] [place] [address] 12/21/2024 1:45 PM EDT Office Visit [facility] OPTOMETRY [address] [place] [address] Tarka, Ashley, OD [address] [place] [address] documented as of this encounter Visit Diagnoses Not on filedocumented in this encounter Additional Health Concerns Assessment Noted Time PHQ-9 Depression Total Score: 0 01/30/20 23 3:04 PM EDT documented as of this encounter Care Teams Cigarette Machine Filler Relationship Specialty Start Date End Date Howie Shaw MD [address] [place] [address] PCP - General Internal Medicine 02/26/14 documented as of this encounter
--- OUTSIDE RECORDS SUMMARY | 2024-11-02 14:54 | XMS_ITS | Encounter Summary ---
Author Organization [employer] Address [address] [facility] 7t [place] [address] Care Team Providers Care Embroiderer Name Role Phone Howie Shaw MD Primary Care Provide r Encounter Details Date Type Department Care Team ([facility] st Contact Info) Description 06/25/2023 Telephone [facility] MEDICINE [address] [place] [address] Howie Shaw MD [address] [place] [address] Social History Tobacco Use Types Packs/Day Years [...] 3:00 PM EDT Office Visit [facility] MEDICINE [address] [place] [address] Howie Shaw MD [address] [place] [address] 12/21/2024 1:45 PM EDT Office Visit [facility] OPTOMETRY [address] [place] [address] Tarka, Ashley, OD [address] [place] [address] documented as of this encounter Visit Diagnoses Not on filedocumented in this encounter Additional Health Concerns Assessment Noted Time PHQ-9 Depression Total Score: 0 01/30/20 23 3:04 PM EDT documented as of this encounter Care Teams Embroiderer Relationship Specialty Start Date End Date Howie Shaw MD [address] [place] [address] PCP - General Internal Medicine 02/26/14 documented as of this encounter
--- OUTSIDE RECORDS SUMMARY | 2024-11-02 14:54 | XMS_ITS | Encounter Summary ---
Author Organization [employer] Address [address] [facility] 7t [place] [address] Care Team Providers Care Button Bradder Name Role Phone Howie Shaw MD Primary Care Provide r Reason for Visit * Reason Onset Date Comments Med Refill 04/23/2024 Encounter Details Date Type Department Care Team (Late st Contact Info) Description 04/23/2024 Refill [facility] MEDICINE [address] [place] [address] Collette Camejo FNP [address] [place] [address] Other hemorrhoids Social History Tobacco Use Types [...] 11/26/2024 3:00 PM EDT Office Visit [facility] MEDICINE [address] [place] [address] Howie Shaw MD [address] [place] [address] 12/21/2024 1:45 PM EDT Office Visit [facility] OPTOMETRY [address] [place] [address] TarkaAshley, OD [address] [place] [address] documented as of this encounter Visit Diagnoses Diagnosis Other hemorrhoids documented in this encounter Additional Health Concerns Assessment Noted Time PHQ-9 Depression Total Score: 0 01/30/20 23 3:04 PM EDT documented as of this encounter Care Teams Button Bradder Relationship Specialty Start Date End Date Howie Shaw MD [address] [place] [address] PCP - General Internal Medicine 02/26/14 documented as of this encounter
--- OUTSIDE RECORDS SUMMARY | 2024-11-02 14:54 | XMS_ITS | Encounter Summary ---
Author Organization [facility] Address [address] [facility] 7t [place] [address] Care Team Providers Care Stone Spreader Operator Name Role Phone Howie Shaw MD Primary Care Provide r Encounter Details Date Type Department Care Team (Latest Contact Info) Description 09/24/2018 Abstract [facility] CONVERSIONS Dental, Provider, DDS Social [...] Upcoming Encounters Date Type Department Care Team ( st Contact Info) Description 11/26/2024 3:00 PM EDT Office Visit [facility] MEDICINE [address] [place] [address] Howie Shaw MD [address] [place] [address] 12/21/2024 1:45 PM EDT Office Visit [facility] OPTOMETRY [address] [place] [address] Ashley Chan, OD [address] [place] [address] documented as of this encounter Visit Diagnoses Not on filedocumented in this encounter Care Teams Stone Spreader Operator Relationship Specialty Start Date End Date Howie Shaw MD [address] [place] [address] PCP - General Internal Medicine 02/26/14 documented as of this encounter
--- OUTSIDE RECORDS SUMMARY | 2024-11-02 14:54 | XMS_ITS | Encounter Summary ---
Author Organization [employer] Address [address] [facility] 7t [place] [address] Care Team Providers Care Wall Taper Helper Name Role Phone Howie Shaw MD Primary Care Provide r Reason for Visit * Reason Comments Med Refill Encounter Details Date Type Department Care Team ([facility] st Contact Info) Description 04/26/2023 Refill [facility] MEDICINE [address] [place] [address] Howie Shaw MD [address] [place] [address] Social History Tobacco Use Types Packs/Day Years [...] Description 11/26/2024 3:00 PM EDT Office Visit [facility] MEDICINE [address] [place] [address] Howie Shaw MD [address] [place] [address] 12/21/2024 1:45 PM EDT Office Visit [facility] OPTOMETRY [address] [place], [place] [id number] Tarka, Ashley, OD [address] [place] [address] documented as of this encounter Visit Diagnoses Not on filedocumented in this encounter Additional Health Concerns Assessment Noted Time PHQ-9 Depression Total Score: 0 01/30/20 23 3:04 PM EDT documented as of this encounter Care Teams Wall Taper Helper Relationship Specialty Start Date End Date Howie Shaw MD [address] [place] [address] PCP - General Internal Medicine 02/26/14 documented as of this encounter
--- OUTSIDE RECORDS SUMMARY | 2024-11-02 14:54 | XMS_ITS | Clinical Summary ---
Author Organization [employer] Address [address] [place] [address] 7[address] [place] [address] Care Team Providers Care Development Writer Name Role Phone Howie Shaw MD Primary Care Provide r Allergies No known active allergies Medications cetirizine (ZyrTEC) 10 MG tablet Take 1 tab po daily for 3 days 3 tablet 3 Active FREESTYLE LITE test stripIndications :Type 2 diabetes mellitus without complication, without long-term current use of insulin ([facility]) TEST BLOOD SUGAR TWICE DAILY 100 strip 5 4 Active FreeStyle lancetsIndicatio ns:Type 2 diabetes mellitus without complication, without long-term current use of insulin ([facility]) TEST BLOOD SUGAR TWICE DAILY 100 each [...] FOR PAIN 100 g 3 4 Active hydrocortisone (Anusol-HC) 2.5 % rectal creamIndications :Other hemorrhoids INSERT INTO THE RECTUM IN THE MORNING AND AT BEDTIME IF NEEDED FOR HEMORRHOIDS 28 g 1 4 Active zolpidem (Ambien) 10 MG tabletIndication s:Primary insomnia Take 1 tablet (10 mg) by mouth if needed at bedtime for sleep. 30 tablet 1 4 Active acetaminophen (Mapap Arthritis Pain) 650 MG ER tablet TAKE 1 TABLET BY MOUTH EVERY 8 HOURS IF NEEDED FOR MILD PAIN 40 tablet 1 5 Active Dulaglutide (Trulicity) 1.5 MG/0.5ML solution auto-injectorInd ications:Type 2 diabetes mellitus without complication, without long-term current use of insulin (CMS/HCC) Inject 1.5 mg under the skin 1 (one) time per week. 0.5 mL 6 5 Active atorvastatin (Lipitor) 20 MG tabletIndication s:Elevated LDL cholesterol level Take 1 tablet (20 mg) by mouth Once per day. 30 tablet 11 5 08/27/19 26 Active Active Problems Problem Noted Date Diagnosed Date Primary insomnia 04/30/2024 Assessment & Plan (04/30/2024 2:38 PM EDT): Pt recently lost her , grieving process, c/o insomnia We discussed good hygiene habits Start Ambien 10 mg po qhs Pain of left thigh 03/12/2023 Elevated LDL cholesterol level 02/12/2023 Assessment & Plan (08/27/2024 3:17 PM EST): Lipid profile Lab Results Component Value Date TRIG 81 08/25/2024 TRIG 106 02/06/2023 CHOL 167 08/25/2024 CHOL 188 02/06/2023 LDLCHOLCAL 109 (H) 08/25/2024 LDLCHOLCAL 124 02/06/2023 HDL 42 08/25/2024 HDL 43 02/06/2023 Given the fact that she is diabetic she would benefit from statin Will start Atorvastatin 20 mg po at bedtime The 10-year ASCVD risk score (Ezra DK, et al., 2019) is: 10.7% Values used to calculate the score: Age: 63 years Sex: Female Is Non- : No Diabetic: Yes Tobacco smoker: No Systolic Blood Pressure: 142 mmHg Is BP treated: No HDL Cholesterol: 42 mg/dL Total Cholesterol: 167 mg/dL Assessment & Plan (04/30/2024 2:19 PM EDT): [...] Preventative health care 01/29/2023 Assessment & Plan (08/27/2024 3:27 PM EST): Mammogram: NL : 08/03/2024 [place] [facility] [place]. Pt is being followed by [facility] Colonoscopy: 12/[address] Andreas bravo aside from Hemorrhoids; repeat in 10 years Assessment & Plan (08/27/2023 11:13 AM EST): Mammogram: NL : 07/19/2023 Normal [place] Smear: [place] [facility] [place] normal. Pt is being followed by [facility] Colonoscopy: 12/[address] Andreas bravo aside from Hemorrhoids; repeat in 10 years Assessment & Plan (01/29/2023 3:10 PM EDT): Mammogram: NL : 04/27/2022 [place] Smear: [place] [facility] [place] [facility]. [facility] Colon[facility]: 12/[address] nAdreas bravo aside from Hemorrhoids; repeat in 10 [...] continue with lifestyle interventions Assessment & Plan (08/27/2024 3:24 PM EST): Pt is here for a follow [...] on a daily basis Assessment & Plan (04/30/2024 2:34 PM EDT): [...] sleep apnea syndrome 05/20/2012 Assessment & Plan (08/27/2024 3:14 PM EST): Dx in 07/28/08 she had been using CPAP ever since with good resolution of her chronic headaches. Pt back under the care of Dr. Fernandez last note 07/2024 Pt reports her Cpap machine is working Doing well Assessment & Plan (04/30/2024 2:16 PM EDT): [...] Encounters Date Type Department Care Team Description 09/22/2024 Telephone [facility] [address] [place] [phone] Howie Shaw MD Medication Question 09/07/2024 Patient Outreach [facility] [address] [place], [place] [phone] Howie Shaw MD Transition Of Care (Tcm) (HDF unscheduled. ) 09/07/2024 Telephone [facility] [address] [place] [phone] Howie Shaw MD ER Follow-up 08/27/2024 3:00 PM EST Office Visit [address] [address] Howie Shaw MD Obstructive sleep apnea syndrome (Primary Dx); Type 2 diabetes mellitus without complication, without long-term current use of insulin ([facility]); Elevated LDL cholesterol level; Preventative health care 08/27/2024 Travel 08/26/2024 Travel 08/18/2024 Telephone [facility] [address] [place] [phone] Howie Shaw MD Referral 08/14/2024 Patient Outreach [facility] [address] [place] [phone] Howie Shaw MD Care Coordination (CHW outreach [facility] pest control - referral completed ) 08/14/2024 Patient Outreach [facility] [address] [place] [address] Howie Shaw MD Pre-visit Planning (SDOH Screening positive and Tobacco screening negative) 08/12/2024 3:20 PM EST Office Visit [facility] [address] [place] [phone] Josh Thomas MD Influenza A (Primary Dx) 08/12/2024 Telephone [facility] [address] [place] [phone] Howie Shaw MD Chart Prep 08/12/2024 Telephone [facility] [address] [place] [address] Howie Shaw MD Nurse Triage from Last 3 Months Immunizations Name Administration [...] your housing situation today? I have judah sing 08/14/[address] you li [...] Mass Index 33.52 08/27/2024 2:48 PM EST Plan of Treatment Upcoming Encounters Date Type Department Care Team (Late st Contact Info) Description 11/26/2024 3:00 PM EDT Office Visit [facility] [address] [place] [address] Howie Shaw MD [address] [place] [address] 12/21/2024 1:45 PM EDT Office Visit [facility] [address] [place] [address] Rocio Ashley, OD [address] [place] [address] Health Maintenance Due Date Last Done Comments [...] 08/22/2023 08/22/2022, 08/22/2022, 08/22/2022, Additional history exists COVID-19 Vaccine ( - season) 2024 11/22/2020, 10/27/2020 Cervical Cancer Screening 11/18/2024 HPV/Cotest 11/18/2024 11/19/2019 Pap Smear 11/18/2024 11/19/2019 Diabetes: Hemoglobin A1C 11/24/2024 025, 04/30/2024, 11/26/2023, Additional history exists Alcohol/Substance Use Screening 04/30/2025 04/30/2024 Depression Screening 04/30/2025 04/30/2024, 04/30/20 24 Mammogram 08/03/2025 08/03/2024, 07/01, 04/26/2022, Additional history exists SDOH Screening 08/14/2025 08/14/2024 Diabetes: Urine Protein Screening 08/25/2025 08/25/2024, 08/27/2023, 09/06/2021, Additional history exists Lipid Panel 08/25/2025 08/25/2024, 08/0 03/2023, 09/06/2021, Additional history exists Tobacco Screening 08/27/2025 08/27/2024 Eye Exam 11/06/2025 11/07/2023, 050 03/2024, 11/07/2023, Additional history exists DTaP/Tdap/Td Vaccines [...] without long-term current use of insulin (CMS/HCC) POCT GLUCOSE Routine 08/27/2024 2:59 PM EST Type 2 diabetes mellitus without complication, without long-term current use of insulin (CMS/HCC) ALBUMIN, RANDOM URINE W/CREATININE Routine 08/25/2024 12:33 PM EST Type 2 diabetes mellitus without complication, without long-term current use of insulin (CMS/HCC) COMPREHENSIVE METABOLIC PANEL Routine 08/25/2024 12:33 PM EST Type 2 diabetes mellitus without complication, without long-term current use of insulin ([facility]) LIPID PANEL, STANDARD Routine 08/25/2024 12:33 PM EST Elevated LDL cholesterol level POCT INFLUENZA B (ID NOW RAPID MOLECULAR) Routine 08/12/2024 3:21 PM EST Influenza A POCT INFLUENZA A (ID NOW RAPID MOLECULAR) Routine 08/12/2024 3:21 PM EST Influenza A POCT RAPID COVID ANTIGEN Routine 08/12/2024 3:21 PM EST Influenza A BI MAMMOGRAM SCREENING TOMOSYNTHESIS BILATERAL Routine 08/03/2024 1:55 PM EST HM COLONOSCOPY Routine 01/22/2023 PAP/HPV Routine 11/19/2019 from Last 3 Months or Most Recently Relevant to Health Maintenance Results * (ABNORMAL) POCT HGB A1C (08/27/2024 3:09 PM EST) Hemoglobin A1C 7.2(A) 4.0 - 6.0 % QC Media Lot # [id number] Lot# Expiration Date Blood 08/27/2024 3:09 PM EST Howie Smith MD POINT OF CARE TEST EN TER/EDIT ORDERABLES Final Result * POCT Glucose (08/27/2024 2:59 PM EST) Glucose Blood, POC 96 60 - 200 mg/dL QC Media Lot # [id number] Lot# Expiration Date [id number] Blood Capillary blood specimen / Unknown 08/27/2024 2:59 PM EST Howie Smith MD POINT OF CARE TEST EN TER/EDIT ORDERABLES Final Result * Albumin, Random Urine W/Creatinine (08/25/2024 12:33 PM EST) Creatinine, Urine 274.51 mg/dL [facility] Microalbumin Urine 24.0 mg/L [facility] Microalbum Creatinine Ratio Ur 8.7 <30 ug/mg cr [facility] Comment:Albumin/Creatinine R atio Reference Ranges: Normal: < 30 ug/mg creatinine Microalbuminuria: 30 - 300 ug/mg creatinineClinical Albuminuria: > 300 ug/mg creatinine Urine (Urine, Random) 08/25/2024 12:33 PM EST 08/25/2024 1:08 PM EST Howie Smith MD LAB URINE ORDERABLES Final Result Performing Organization Address City/State/[facility] Co de Phone Number [facility] [address] [place] [phone] * (ABNORMAL) Lipid Panel, Standard (08/25/2024 12:33 PM EST) Triglycerides 81 <150 mg/dL [facility] Comment:Desirable Triglyceri de: less than 150 mg/dLBorderline High Triglyceride 150-199 mg/dLHigh Triglyceride: 200-499 mg/dLVery High Triglyceride: greater than or equal to 5OO mg/dL Cholesterol 167 <200 mg/dL [facility] Comment:Desirable Cholestero l: less than 200 mg/dLBorderline High Cholesterol: 200-239 mg/dLHigh Cholesterol: greater than 239 mg/dL LDL Cholesterol Calculated 109(H) <100 mg/dL [facility] Comment:Desirable LDL: less than 100 mg/dLNear Optimal/Above Optimal LDL: 110- 129 mg/dLBorderline High LDL: 130-159 mg/dLHigh LDL: 160-189 mg/dLVery High LDL: greater than or equal to 190 mg/dL HDL Cholesterol 42 >40 mg/dL [facility] Comment:Desirable HDL: great er than 40 mg/dL Note: This HDL assay may give artificially low results in patients with liver disease. Blood Venous blood specimen / Unknown 08/25/2024 12:33 PM EST 08/25/2024 1:06 PM EST us Howie Smith MD LAB BLOOD ORDERABLES Final Result [facility] [address] [place] [address] [phone] * (ABNORMAL) Comprehensive Metabolic Panel (08/25/2024 12:33 PM EST) Sodium 140 135 - 145 mmol/L [facility] Potassium 4.6 3.3 - 5.1 mmol/L [facility] Chloride 107 96 - 108 mmol/L [facility] Carbon Dioxide 26 22 - 29 mmol/L [facility] Anion Gap 12 12 - 20 [facility] Urea Nitrogen (BUN) 15 9 - 16 mg/dL [facility] Creatinine, Serum 0.75 0.5 - 1.4 mg/dL [facility] Estimated Glomerular Filt Rate >60 [facility] Comment:Chronic Kidney Disea se: Estimated GFR < 60 mL/min/[id number] Kidney Disease: Estimated GFR < 15 mL/min/1.73m2 Glucose 112 60 - 115 mg/dL [facility] Calcium 9.2 8.4 - 10.2 mg/dL [facility] Bilirubin, Total 0.4 0.0 - 1.0 mg/dL [facility] Aspartate Amino Transferase 20 5 - 31 U/L [facility] Alanine Aminotransferase 25 0 - 31 U/L [facility] Total Protein 8.4(H) 6.5 - 8.0 g/dL [facility] Albumin Level 3.9 3.5 - 5.0 g/dL [facility] Alkaline Phosphatase 115 39 - 117 U/L [facility] Blood Venous blood specimen / Unknown 08/25/2024 12:33 PM EST 08/25/2024 1:06 PM EST Howie Smith MD LAB BLOOD ORDERABLES Final Result Performing Organization Address [facility] Co de Phone Number [facility] [address] [place] [phone] * Influenza B (ID NOW Rapid Molecular) (08/12/2024 3:21 PM EST) Influenza B Negative Negative, Indeterminate [facility] Swab 08/12/2024 3:21 PM EST Josh Thomas MD POINT OF CARE TEST ENTER/EDIT OR DERABLES Final Result Performing Organization Address [facility] de Phone Number [facility] [address] [place] [phone] * (ABNORMAL) Influenza A (ID NOW Rapid Molecular) (08/12/2024 3:21 PM EST) Influenza A Positive( A) Negative, Indeterminate [facility] Swab 08/12/2024 3:21 PM EST Josh Thomas MD POINT OF CARE TEST ENTER/EDIT OR DERABLES Final Result Performing Organization Address [facility] Co de Phone Number [facility] [address] [place] [phone] * POCT Rapid COVID Ag (08/12/2024 3:21 PM EST) Rapid COVID Ag Negative [facility] Swab 08/12/2024 3:21 PM EST Josh Thomas MD POINT OF CARE TEST ENTER/EDIT OR DERABLES Final Result Performing Organization Address [facility] Co de Phone Number [facility] [address] [place] [phone] * BI Mammogram Screening Tomosynthesis Bilateral (08/03/2024 1:55 PM EST) Anatomical Region Laterality Modality Breast Bilateral Mammography 08/03/2024 1:55 PM EST Narrative 08/09/2024 5:55 PM EST ? [facility] ? [address] ?[place], [place] [address] ? Mammography Report ? Signed ? Patient: Drew,Johanna ?MR#: [id number] ? : 1960 ?Acct:[id number] ? Age/Sex: 63 / F ?ADM Date: 08/03/24 ? Loc: HO.MAMMO ? Attending Dr: Howie Adams MD ? Ordering Physician: Howie Adams MD ?Resu ?? lts: 1Negative ? Date of Service: 08/03/24 ?Follow Up: 1 Year From Orig ?? inal Mammogram ? Procedure(s): MM tomosynthesis screening BI ?? Accession Number(s): [id number] ? cc: Howie Adams MD ? EXAMINATION: [...] DD/ 1355 ? TD/TT: 08/03/24 1420 ? Disability Rater: ? Procedure Note Alexandra, Lisa - 08/09/2024 [facility] [address] [place] [address] Mammography Report Signed Patient: Fahad Drew#: [id number] : 1960cct:[id number] Age/Sex: 63 / FADM Date: 08/03/24 Loc: HO.MAMMO Attending Dr: Howie Adams MD Ordering Physician: Howie Adams MDResu lts: 1Negative Date of Service: 08/03/24Follow Up: 1 Year From Orig inal Mammogram Procedure(s): MM tomosynthesis screening BI Accession Number(s): [id number] cc: Howie Adams MD EXAMINATION: MM SCREENING [...] Pooja Guillen DO 08/09/2024 05:53 PM EST Dictated By: Pooja Guillen DO Signed By: <Electronically signed by Pooja Guillen DO in [place]> 08/09/24 1753 DD/ 1355 TD/TT: 08/03/24 1420 Disability Rater: Howie Smith MD IMG BI PROCEDURES Bony nino Result - Final * Colonoscopy (01/22/2023) Colonoscopy Normal Normal Comment:Dr Sang hernandez Historical Provider HEALTH MAINTENANCE Final Result * Pap Smear (11/19/2019) Pap Negative for intraephithelial lesion or malignancy Negative for intraephithelial lesion or malignancy, Other HPV Undetected Undetected, Indeterminate, Quantitative, Not Detected Historical Provider HEALTH MAINTENANCE Final Result from Last 3 Months or Most Recently Relevant to Health Maintenance Insurance [id number] < 65 [place] [id number] Care Teams Development Writer Relationship Specialty Start Date End Date Howie Shaw MD [address] [place] [address] PCP - General Internal Medicine 02/26/14
--- OUTSIDE RECORDS SUMMARY | 2024-11-02 14:54 | XMS_ITS | Encounter Summary ---
Author Organization [facility] Address [address] [facility] 7 [place] [address] Care Team Providers Care Stummel Selector Name Role Phone Howie Shaw MD Primary Care Provide r Encounter Details Date Type Department Care Team (Latest Contact Info) Description 06/01/[address] [facility] Dental, Provider, DDS Social History [...] Description 11/26/2024 3:00 PM EDT Office Visit [facility] [address] [place] [address] Howie Shaw MD [address] [place] [address] 12/21/2024 1:45 PM EDT Office Visit [facility] [address] [place] [address] Ashley Chan, OD [address] [place] [address] documented as of this encounter Visit Diagnoses Not on filedocumented in this encounter Care Teams Stummel Selector Relationship Specialty Start Date End Date Howie Shaw MD [address] [place] [address] PCP - General Internal Medicine 02/26/14 documented as of this encounter
== END 2024-11-02 13:48 | disposition home or self-care (01) ==
LOC: HO.HPS 13:28
PROVIDERS: PCP Internal Medicine; Visit Provider Internal Medicine
DX: E66.9 Obesity, unspecified (principal); G47.33 Obstructive sleep apnea (adult) (pediatric); Z99.89 Dependence on other enabling machines and devices
CPT/HCPCS: 99213

== ENCOUNTER → 2024-11-02 13:27 | Outpatient (BNVA) | payer OTHER, SELFPAY | PROVIDERS: PCP Internal Medicine; Visit Provider Internal Medicine | DX: G47.33 Obstructive sleep apnea (adult) (pediatric) (principal); E66.9 Obesity, unspecified; Z99.89 Dependence on other enabling machines and devices; Z68.32 Body mass index [BMI] 32.0-32.9, adult | CPT/HCPCS: 99212 ==

== ENCOUNTER 2025-05-10 13:41 | Outpatient (AMB) | payer OTHER, SELFPAY ==
[2025-05-10 13:46] VITALS: BP 120/62; PULSE 92; O2SAT 97; BMI 33.6
--- NOTE | 2025-05-10 13:46 | A.OFFVIS_ITS ---
Vital Signs 05/10/25 13:46 Height 5 ft 3 in Weight 189 lb 9.561 oz BMI 33.6 BP 120/62 Blood Pressure Location Lt brachial Position Sitting Pulse 92 Pulse Source Pulse Oximeter Pulse Oximetry (%) 97 Oxygen Delivery Method Room Air Intake Visit Reasons: Obstructive sleep apnea Intake Note: pt is here for follow up and is feeling good. Behavioral Science Chair Required: Yes Behavioral Science Chair Services: Behavioral Science Chair Present Behavioral Science Chair Name: Nafisa Broderick RMA Allergies No Known Allergies Allergy (Verified 05/10/25 13:57) Medication List - Last Reconciled 05/10/25 by Neda Fernandez MD acetaminophen ER (Mapap Arthritis Pain) 650 mg PO Q8H PRN atorvastatin (Lipitor) 20 mg PO BEDTIME diclofenac sodium 1% 2 grams topical QID dulaglutide (Trulicity) mg subcut naproxen 500 mg PO BID Do you need a note to return to daycare/school/sports/work: No HPI HPI Obstructive sleep apnea: Details: THIS 64 YEARS OLD VERY PLEASANT FEMALE MODERATELY OBESE, WITH OBSTRUCTIVE SLEEP APNEA IS HERE FOR HER 6 MONTHS FOLLOW-UP. SHE USES THE CPAP VERY REGULARLY BUT ON SOME NIGHTS SHE JUST FALLS ASLEEP BEFORE SHE HAS A CHANCE TO PUT ON THE CPAP. SHE SLEEPS GOOD FOR AT LEAST 6 HOURS EVERY NIGHT. SOMETIMES SHE GETS NONSPECIFIC HEAVINESS IN THE BACK OF THE HEAD WITH THE USE OF CPAP. SHE HAS NO PROBLEM WITH THE CPAP MASK OR CPAP DEVICE, AND NO DAYTIME SLEEPINESS WEIGHT REMAINS UNCHANGED. [facility] Medical History Tachycardia PONV (postoperative nausea and vomiting) Type II diabetes mellitus Obesity Depressive disorder Chronic headache disorder Family history of breast cancer Colon cancer screening Nocturnal hypoxemia Cough MAYCOL on CPAP Obesity (BMI 30-39.9) Surgical History History of tubal ligation Hx of cholecystectomy Hx of colonoscopy Social History Alcohol intake: never Patient Tobacco Use Status: Former Tobacco user Review of Systems Const All systems reviewed & are unremarkable except as noted in HPI and below ENT Reports nasal congestion (mild off and on .) Card Denies chest pain, Denies syncope, Denies irregular heart rhythm and Denies dyspnea on exertion Resp Denies cough, Denies dyspnea on exertion and Denies wheezing GI Reports no additional complaints Musc Reports no additional complaints Neuro Reports no additional complaints and Denies syncope Psych Reports no additional complaints Aller/Immun Denies wheezing Physical Exam Vital Signs: Last Vital Signs Pulse 92 05/10/25 13:46 BP 120/62 05/10/25 13:46 Pulse Ox 97 05/10/25 13:46 Oxygen Delivery Method Room Air 05/10/25 13:46 BMI result Body Mass Index 33.6 Const General: healthy appearing, comfortable, no acute distress, alert and awake Orientation/consciousness: patient oriented x3 HEENT Head: Yes normal to inspection General nose exam: No nasal polyps present and No nasal discharge present Face and sinus: Yes sinuses nontender Mouth: oropharynx normal Throat: Yes posterior oropharynx normal Eyes General: appearance normal, both eyes and all related structures Neck Neck: Yes normal visual inspection, Yes no lymphadenopathy, Yes trachea midline and Yes no JVD Thyroid: Thyroid normal Chest Chest palpation & inspection: normal inspection of the chest and normal palpation of entire chest wall Resp Auscultation: clear to auscultation bilaterally, no crackles and no wheezes Cardio Palpation: normal PMI Rate: regular rate Rhythm: regular rhythm Heart sounds: no gallops and no murmurs Peripheral pulses: Peripheral pulses 2+ throughout GI Palpation (GI): Soft to palpation, nontender, No hepatosplenomegaly present and no masses Auscultation: normal bowel sounds Back/Spine/Pelvis Thoracic/Lumbar Spine: thoracic and lumbar spine normal to inspection Skin General skin exam: no rashes or lesions noted Neuro General: patient oriented x3 and no focal motor deficits Cranial nerves: Yes CN's II-XII intact bilaterally Extrem General: Yes normal to inspection, Yes no clubbing, cyanosis or edema, Yes no calf tenderness and No venous stasis dermatitis Psych Appearance: grossly normal Speech and movement: Normal speech and movement present Results Reviewed Results Reviewed: COMPLIANCE REPORT FOR THE LAST 30 NIGHTS REVIEWED AND SHOWS THAT SHE HAS USED 24/30 NIGHTS, 80%. AVERAGE USE IT PER NIGHT. 5 HOURS 25 MINUTES SHE IS ON CPAP OF 8 CM. NO SIGNIFICANT AIR LEAK. RESIDUAL AHI 3.7 Assessment & Plan Assessment & Plan (1) Obesity (BMI 30-39.9): Comment: MODERATELY SEVERE OBESITY IS CHRONIC AND THE CAUSE FOR HER OBSTRUCTIVE SLEEP APNEA . SHE HAS NOT LOST ANY FURTHER WEIGHT . Code(s): E66.9 - Obesity, unspecified Category: Medical Plan: I TALKED TO HER ABOUT THE WEIGHT COME IT IS DIFFICULT FOR HER TO LOSE BECAUSE SHE DOES NOT WALK MUCH, SHE WILL TRY. TO MANAGE HER DIET. (2) MAYCOL on CPAP: Comment: She is a well known case of OBSTRUCTIVE SLEEP APNEA. Which has been well treated with the use of CPAP, pressure 8 cm . Using CPAP regularly every night and sleeps well. Code(s): G47.33 - Obstructive sleep apnea (adult) (pediatric); Z99.89 - Dependence on other enabling machines and devices Category: Medical Plan: COMMENDED FOR GOOD COMPLIANCE AND I ENCOURAGED HER TO USE CPAP UP TO 6 HOURS PER NIGHT AT LEAST . Coding Level of Care Code Est Pt Level 3 (89023) Diagnoses Obesity (BMI 30-39.9) E66.9 MAYCOL on CPAP G47.33; Z99.89
--- OUTSIDE RECORDS SUMMARY | 2025-05-10 15:51 | XMS_ITS | Encounter Summary ---
Author Organization [email or web address] Address [address] [facility] 7t [place] [address] Care Team Providers Care Manager Of Regulatory Affairs Name Role Phone Howie Shaw MD Primary Care Provide r Reason for Visit * Reason Onset Date Comments Med Refill 04/23/2024 Encounter Details Date Type Department Care Team (Late st Contact Info) Description 04/23/2024 Refill [facility] [address] [place] [address] Collette Camejo, FELIPE [address] [place] [address] Other hemorrhoids Social History Tobacco Use Types [...] Care Team (Late st Contact Info) Description 06/22/2025 10:30 AM EST Office Visit [facility] [address] [place] [address] Tarka Ashley, OD [address] [place] [address] 06/29/2025 9:00 AM EST Office Visit [facility] [address] [place] [address] Howie Shaw MD [address] [place] [address] documented as of this encounter Visit Diagnoses Diagnosis Other hemorrhoids documented in this encounter Additional Health Concerns Assessment Noted Time PHQ-9 Depression Total Score: 0 01/30/20 23 3:04 PM EDT documented as of this encounter Care Teams Manager Of Regulatory Affairs Relationship Specialty Start Date End Date Howie Shaw MD [address] [place] [address] PCP - General Internal Medicine 02/26/14 documented as of this encounter
--- OUTSIDE RECORDS SUMMARY | 2025-05-10 15:51 | XMS_ITS | Encounter Summary ---
Author Organization [employer] Address [address] [facility] 7t [place] [address] Care Team Providers Care Supervisor Poultry Farm Name Role Phone Howie Shaw MD Primary Care Provide r Reason for Visit * Reason Comments Med Refill Encounter Details Date Type Department Care Team ([facility] st Contact Info) Description 04/26/2023 Refill [facility] MEDICINE [address] [place] [address] Howie Shaw MD [address] [place] [address] Social History Tobacco Use Types Packs/Day Years [...] Description 06/22/2025 10:30 AM EST Office Visit [facility] OPTOMETRY [address] [place], [place] [phone] Ashley Chan, OD [address] [place] [address] 06/29/2025 9:00 AM EST Office Visit [facility] MEDICINE [address] [place] [address] Howie Shaw MD [address] [place], [place] [phone] documented as of this encounter Visit Diagnoses Not on filedocumented in this encounter Additional Health Concerns Assessment Noted Time PHQ-9 Depression Total Score: 0 01/30/20 23 3:04 PM EDT documented as of this encounter Care Teams Supervisor Poultry Farm Relationship Specialty Start Date End Date Howie Shaw MD [address] [place] [id number] PCP - General Internal Medicine 02/26/14 documented as of this encounter
--- OUTSIDE RECORDS SUMMARY | 2025-05-10 15:51 | XMS_ITS | Encounter Summary ---
Author Organization [employer] [facility] Address 75 [facility] 7t [place] [address] Care Team Providers Care Line Fisher Name Role Phone Howie Shaw MD Primary Care Provide r Encounter Details Date Type Department Care Team (Latest Contact Info) Description 09/24/2018 Abstract [facility] CONVERSIONS Dental, Provider, DDS Social [...] Description 06/22/2025 10:30 AM EST Office Visit [facility] OPTOMETRY [address] [place] [address] Ashley Chan, OD [address] [place] [address] 06/29/2025 9:00 AM EST Office Visit [facility] MEDICINE [address] [place] [address] Howie Shaw MD [address] [place] [address] documented as of this encounter Visit Diagnoses Not on filedocumented in this encounter Care Teams Line Fisher Relationship Specialty Start Date End Date Howie Shaw MD [address] [place] [address] PCP - General Internal Medicine 02/26/14 documented as of this encounter
--- OUTSIDE RECORDS SUMMARY | 2025-05-10 15:51 | XMS_ITS | Encounter Summary ---
Author Organization [employer] Address 75 [facility] 7t [place] [address] Care Team Providers Care Can Cutter Name Role Phone Howie Shaw MD Primary Care Provide r Reason for Visit * Reason Onset Date Comments Med Refill 04/23/2024 Encounter Details Date Type Department Care Team (Late st Contact Info) Description 04/23/2024 Refill [facility] MEDICINE [address] [place] [address] Nafisa Frye DO [address] [place] [address] Social History Tobacco Use Types Packs/Day Years [...] Description 06/22/2025 10:30 AM EST Office Visit [facility] OPTOMETRY [address] [place] [address] TarkaAshley, OD [address] [place] [address] 06/29/2025 9:00 AM EST Office Visit [facility] MEDICINE [address] [place] [address] Howie Shaw MD 230 [place] [address] documented as of this encounter Visit Diagnoses Not on filedocumented in this encounter Additional Health Concerns Assessment Noted Time PHQ-9 Depression Total Score: 0 01/30/20 23 3:04 PM EDT documented as of this encounter Care Teams Can Cutter Relationship Specialty Start Date End Date Howie Shaw MD [address] [place] [address] PCP - General Internal Medicine 02/26/14 documented as of this encounter
--- OUTSIDE RECORDS SUMMARY | 2025-05-10 15:51 | XMS_ITS | Encounter Summary ---
Author Organization [employer] Address 75 [facility] 7t [place] [address] Care Team Providers Care Machine Engraver Name Role Phone Howie Shaw MD Primary Care Provide r Reason for Visit * Reason Onset Date Comments Med Refill 11/25/2024 Encounter Details Date Type Department Care Team (Late st Contact Info) Description 11/25/2024 Refill [facility] MEDICINE [address] [place] [address] Hortencia Francisco MD [address] [place] [address] Type 2 diabetes mellitus without complication, without long-term current use of insulin ([facility]) Social History Tobacco Use Types Packs/Day Years [...] Description 06/22/2025 10:30 AM EST Office Visit [facility] OPTOMETRY [address] [place] [address] Ashley Chan, OD [address] [place] [address] 06/29/2025 9:00 AM EST Office Visit [facility] MEDICINE [address] [place] [address] Howie Shaw MD [address] [place] [address] documented as of this encounter Visit Diagnoses Diagnosis Type 2 diabetes mellitus without complication, without long-term current use of insulin (HCC) documented in this encounter Additional Health Concerns Assessment Noted Time PHQ-9 Depression Total Score: 5 04/30/20 24 2:46 PM EDT documented as of this encounter Care Teams Machine Engraver Relationship Specialty Start Date End Date Howie Shaw MD [address] [place] [address] PCP - General Internal Medicine 02/26/14 documented as of this encounter
--- OUTSIDE RECORDS SUMMARY | 2025-05-10 15:51 | XMS_ITS | Encounter Summary ---
Author Organization [employer] [facility] Address [address] [facility] 7t [place] [address] Care Team Providers Care Chief Telephone Operator Name Role Phone Howie Shaw MD Primary Care Provide r Encounter Details Date Type Department Care Team (Latest Contact Info) Description 06/01/2021 Abstract [facility] CONVERSIONS Dental, Provider, DDS Social History Tobacco [...] Description 06/22/2025 10:30 AM EST Office Visit [facility] OPTOMETRY [address] [place] [address] Ashley Chan, OD [address] [place] [address] 06/29/2025 9:00 AM EST Office Visit [facility] MEDICINE [address] [place] [address] Howie Shaw MD 230 [place] [address] documented as of this encounter Visit Diagnoses Not on filedocumented in this encounter Care Teams Chief Telephone Operator Relationship Specialty Start Date End Date Howie Shaw MD [address] [place] [address] PCP - General Internal Medicine 02/26/14 documented as of this encounter
--- OUTSIDE RECORDS SUMMARY | 2025-05-10 15:51 | XMS_ITS | Encounter Summary ---
Author Organization [employer] Address 75 [facility] 7t [place] [address] Care Team Providers Care Operations Planner Name Role Phone Howie Shaw MD Primary Care Provide r Reason for Visit * Reason Onset Date Comments Med Refill 04/23/2024 Encounter Details Date Type Department Care Team (Late st Contact Info) Description 04/23/2024 Refill [facility] [address] [place] [address] Ashleigh Wilkins MD [address] [place] [address] Social History Tobacco Use Types Packs/Day Years [...] Description 06/22/2025 10:30 AM EST Office Visit [facility] OPTOMETRY [address] [place] [address] Tarka Ashley, OD [address] [place] [address] 06/29/2025 9:00 AM EST Office Visit [facility] MEDICINE [address] [place] [address] Howie Shaw MD [address] [place] [address] documented as of this encounter Visit Diagnoses Not on filedocumented in this encounter Additional Health Concerns Assessment Noted Time PHQ-9 Depression Total Score: 0 01/30/20 23 3:04 PM EDT documented as of this encounter Care Teams Operations Planner Relationship Specialty Start Date End Date Howie Shaw MD [address] [place] [address] PCP - General Internal Medicine 02/26/14 documented as of this encounter
--- OUTSIDE RECORDS SUMMARY | 2025-05-10 15:51 | XMS_ITS | Encounter Summary ---
Author Organization [employer] Address [address] [facility] 7t [place] [address] Care Team Providers Care Pot Room Tapper Name Role Phone Howie Shaw MD Primary Care Provide r Reason for Visit * Reason Comments Med Refill Encounter Details Date Type Department Care Team ([facility] st Contact Info) Description 05/26/2023 Refill [facility] MEDICINE [address] [place] [address] Nafisa Frye DO [address] [place] [address] Social History Tobacco Use Types Packs/Day Years [...] Description 06/22/2025 10:30 AM EST Office Visit [facility] OPTOMETRY [address] [place] [address] TarkaAshley, OD [address] [place] [address] 06/29/2025 9:00 AM EST Office Visit [facility] MEDICINE [address] [place] [address] Howie Shaw MD [address] [place] [address] documented as of this encounter Visit Diagnoses Not on filedocumented in this encounter Additional Health Concerns Assessment Noted Time PHQ-9 Depression Total Score: 0 01/30/20 23 3:04 PM EDT documented as of this encounter Care Teams Pot Room Tapper Relationship Specialty Start Date End Date Howie Shaw MD [address] [place] [phone] PCP - General Internal Medicine 02/26/14 documented as of this encounter
--- OUTSIDE RECORDS SUMMARY | 2025-05-10 15:51 | XMS_ITS | Clinical Summary ---
Author Organization [address] [facility] Address [address] [place] [address] Phone Care Team Providers Care Electrician Office Name Role Phone Howie Adams MD Primary Care Provi germaine Allergies No known active allergies Medications No known medications Encounters Date Type Department Care Team Description 03/29/2025 1:15 PM EDT Office Visit [facility] [address] [phone] Manish Evans, DENNIS Controlled type 2 diabetes with neuropathy (CMS/HCC V24, CMS/HCC V28) (Primary Dx); Arthritis of both feet; Lumbosacral radiculopathy; Bone spur of posterior portion of right calcaneus from Last 3 Months Medical History Medical History Date Comments Esophageal reflux DX:Esophageal reflux; COMMENT: years ago Essential hypertension DX:Essent ial hypertension Social History Tobacco Use Types Packs/Day Years Used Date Smoking Tobacco: Never Smokeless Tobacco: Never Alcohol Use Standard Drinks/Week Comments Never 0 (1 standard drink = 0.6 oz pur e alcohol) Comments Unknown Sex and Gender Information Value Date Recorded Sex Assigned at Female 01/05/2025 4:10 PM EDT Legal Sex Female 3:33 PM EST Gender Identity Female 01/05/2025 4:10 PM EDT Sexual Orientation Not on file Obstetrics History Last Filed Vital Signs Vital Sign Reading Time Taken Comments Blood Pressure - - Pulse - - Temperature - - Respiratory Rate - - Oxygen Saturation - - Inhaled Oxygen Concentration - - Weight 83 kg (183 lb) 11/25/2024 1:11 PM EDT Height 160 cm (5' 3 ) 01/16/2022 1:53 PM EDT Body Mass Index 32.42 01/16/2022 1:53 PM EDT Plan of Treatment Upcoming Encounters Date Type Department Care Team (Late st Contact Info) Description 05/17/2025 1:00 PM EST Office Visit Orthopedic Surgery - [place] [address] [phone] Manish Evans, DENNIS [address] [address] Health Maintenance Due Date Last Done Comments Breast Cancer Screening 1960 Colorectal Cancer Screening: Colonoscopy 1960 Diabetes: Annual GFR (Glomerular Filtration Rate) 1960 Diabetes: Annual Foot Exam 1970 Diabetes: Annual Retina Eye Exam 1970 Pneumococcal Vaccine: 50+ Years (1 of 2 - PCV) 10/08/1979 Cervical Cancer Screening: Pap Smear 1981 Hepatitis B Vaccines (3 of 3 - 19+ 3-dose series) 09/24/2003 06/04/2003, 03/26/2003 RSV Immunization Adult Patients (1 - Risk 50-74 years 1-dose series) 2010 Zoster Vaccines (1 of 2) 2010 HIV Screening 05/30/2022 Hepatitis C Screening 05/30/2022 Medicare Annual Wellness Visit 05/30/2022 Social Influencers of Health Screening 05/30/2022 Depression Screening 07/01/2024 Diabetes: Annual Urine Albumin-Creatinine Ratio (uACR) 09/15/2024 COVID-19 Vaccine (3 - season) 2025 11/22/2020, 10/27/2020 Influenza Vaccine (#1) 2025 , 03/21/2023, 06/06/2021, Additional history exists Diabetes: Blood Sugar Control Test (HGBA1C) 09/01/2025 03/04/2025, 11/26/2024, 08/27/2024 DTaP,Tdap,and Td Vaccines (3 - Td or Tdap) 01/11/2026 01/12/2016, 10/08/2002 Cholesterol Screening (Lipid Panel) 08/25/2029 08/25/2024 HIB Vaccines Aged Out No longer eligi [...] to complete this topic RSV Immunization Patients Under 20 months Aged Out No longer eligible based on patient's age to complete this topic Varicella Vaccines Aged Out No longer eligible based on patient's age to complete this topic Insurance [facility] MEDICARE Member Subscriber Plan / Payer (Ef fective 2024-Present) Name:LAWRENCE FELIX Relation to Subscriber:Self Name:Lawrence Felix Payer ID:[id number] Group ID:[id number] Type:Not on file Address: [place] [address] [address] [phone] Care Teams Electrician Office Relationship Specialty Start Date End Date Howie Adams MD [address] [place] [address] [place] [phone] PCP - General Internal Medicine 01/10/22
--- OUTSIDE RECORDS SUMMARY | 2025-05-10 15:51 | XMS_ITS | Encounter Summary ---
Author Organization [employer] Address 75 [facility] 7t [place] [address] Care Team Providers Care Drill Runner Name Role Phone Howie Shaw MD Primary Care Provide r Encounter Details Date Type Department Care Team ([facility] st Contact Info) Description 06/25/2023 Telephone [facility] MEDICINE [address] [place] [address] Howie Shaw MD [address] [place] [address] Social History Tobacco Use Types Packs/Day Years [...] Visit [facility] OPTOMETRY [address] [place] [address] TarAshley herrera, OD [address] [place] [address] 06/29/2025 9:00 AM EST Office Visit [facility] MEDICINE [address] [place] [address] Howie Shaw MD [address] [place] [address] documented as of this encounter Visit Diagnoses Not on filedocumented in this encounter Additional Health Concerns Assessment Noted Time PHQ-9 Depression Total Score: 0 01/30/20 23 3:04 PM EDT documented as of this encounter Care Teams Drill Runner Relationship Specialty Start Date End Date Howie Shaw MD [address] [place] [address] PCP - General Internal Medicine 02/26/14 documented as of this encounter
--- OUTSIDE RECORDS SUMMARY | 2025-05-10 15:51 | XMS_ITS | Clinical Summary ---
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 30 tablet 4 Active hydrocortisone (Anusol-HC) 2.5 % rectal [...] MILD PAIN 40 tablet 1 5 Active atorvastatin (Lipitor) 20 MG tabletIndication s:Elevated LDL cholesterol level Take 1 tablet (20 mg) by mouth Once per day. 30 tablet 11 5 11/21/19 26 Active Dulaglutide (Trulicity) 1.5 MG/0.5ML solution auto-injectorInd ications:Type 2 diabetes mellitus without complication, without long-term current use of insulin (HCC) Inject 1.5 mg under the skin 1 (one) time per week. 0.5 mL 6 5 Active Diclofenac Sodium 1 % gel APPLY 2 GRAMS TOPICALLY IN THE MORNING, AT NOON, IN THE EVENING AND AT BEDTIME IF NEEDED FOR PAIN 100 g 3 5 Active FreeStyle lancetsIndicatio ns:Type 2 diabetes mellitus without complication, without long-term current use of insulin ([facility]) 1 each by Other route 2 times daily. 100 each 11 5 Active triamcinolone (Kenalog) 0.5 % ointment Apply topically 2 times daily. Use for no more than 5 days. 15 g 5 Active FREESTYLE LITE test stripIndications :Type 2 diabetes mellitus without complication, without long-term current use of insulin ([facility]) TEST BLOOD SUGAR TWICE DAILY 100 strip 5 5 Active Diclofenac Sodium 1 % gelIndications:M uscle spasm of back Apply topically tid prn pain 50 g 1 5 Active Active Problems Problem Noted Date Diagnosed Date Right lateral epicondylitis 03/04/2025 Assessment & Plan (03/04/2025 1:27 PM EDT): Lateral epicondylitis diagnosed, likely due to repetitive movements. Recommended use of diclofenac one to two times daily for inflammation and pain. Advised to reduce repetitive activities with the right arm and use the opposite arm when possible. If symptoms do not improve, will order an X-ray. Vasovagal near syncope 11/26/2024 Assessment & Plan (11/26/2024 3:46 PM EDT): Seen at [facility] 09/05/2024 after patient nearly fainted while at spiritism. Pt admits that that day she had not eaten well or drink enough fluids. She did not faint. She felt weak and decided to sit down. She did not have any headache, no chest pain Work up in the ER included BMP, CBC and EKG that were unremarkable ER physician Thought to be due to not eating and dehydration Exam today within normal limits For now will continue to observe, I asked patient to let us know if symptoms recur Primary insomnia 04/30/2024 Assessment & Plan (04/30/2024 2:38 PM EDT): Pt recently lost her , grieving process, c/o insomnia We discussed good hygiene habits Start Ambien 10 mg po qhs Pain of left thigh 03/12/2023 Elevated LDL cholesterol level 02/12/2023 Assessment & Plan (11/26/2024 3:15 PM EDT): Lipid profile Lab Results Component Value Date TRIG 81 08/25/2024 TRIG 106 02/06/2023 CHOL 167 08/25/2024 CHOL 188 02/06/2023 LDLCHOLCAL 109 (H) 08/25/2024 LDLCHOLCAL 124 02/06/2023 HDL 42 08/25/2024 HDL 43 02/06/2023 She is on Atorvastatin 20 mg po at bedtime The ASCVD Risk score (Ezra CALIXTO, et al., 2019) failed to calculate for the following reasons: Unable to determine if patient is Non- Assessment & Plan (08/27/2024 3:17 PM EST): [...] NL : 08/03/2024 Normal Pap Smear: at [facility] 11/27/2016 normal. Pt is being followed by [facility] Colonoscopy: 12/[address] Andreas bravo aside from Hemorrhoids; repeat in 10 years Assessment & Plan (08/27/2023 11:13 AM EST): Mammogram: NL : 07/19/2023 Normal Pap Smear: at [facility] 11/27/2016 normal. Pt is being followed by [facility] Colonoscopy: 12/[address] Andreas bravo aside from Hemorrhoids; repeat in 10 years Assessment & Plan (01/29/2023 3:10 PM EDT): Mammogram: NL : 04/27/2022 Pap Smear: at [facility] 11/27/2016 normal. Pt is being followed by [facility] Colonoscopy: 12/[address] Andreas bravo aside from Hemorrhoids; repeat in 10 years Chronic pain of left knee 01/29/2023 Assessment & Plan (11/26/2024 3:48 PM EDT): Pt with chronic knee pain X-rays 12/19/2022 of both of her knees [...] Ortho due to caring for her . She will benefit from a placard Assessment & Plan (06/25/2023 1:04 PM EST): [...] -Referred to podiatry 08/22/22 Assessment & Plan (11/26/2024 3:29 PM EDT): Under the care of podiatry. Pt with great difficulty walking as a result Needs a Placard Assessment & Plan (01/29/2023 3:14 PM EDT): She was referred for xrays As well as to podiatry for eval Assessment & Plan (08/22/2022 6:46 PM EST): -Encouraged supportive footwear and symptomatic measures -Referred to podiatry and PT for further eval Follow up as needed Type 2 diabetes mellitus without complication Assessment & Plan (03/04/2025 1:14 PM EDT): Pt is here for a follow up regarding her Diabetes Mellitus DM controlled She is on Trulicity 1.5 once a week, She was on a regimen of Metformin XR 500 mg po q pm. Unfortunately she developed hives from it and it was then discontinued. It is unclear that this is the culprit since pt still develops hives off the Metformin . Hgb A1c 03/04/2025: 6.4 Eye exam 11/25/2024 Dr Chan Microalbumin 08/25/2024 was 24 Pt not on an LINDA inhibitor/ARB Plan: continue current regimen 3 month f/u Pt advised to: adhere to diabetic diet check your blood sugars regularly check your feet on a daily basis Assessment & Plan (11/26/2024 3:21 PM EDT): Pt is here for a follow up regarding her Diabetes Mellitus DM controlled She is on Trulicity 1.5 once a week, She was on a regimen of Metformin XR 500 mg po q pm. Unfortunately she developed hives from it and it was then discontinued. It is unclear that this is the culprit since pt still develops hives off the Metformin . Hgb A1c 11/26/2024: 6.4 from 7.2 Eye exam 11/07/2023 Dr. Milian Microalbumin 08/25/2024 was 24 Pt not on an LINDA inhibitor/ARB Plan: continue current regimen 3 month f/u Pt advised to: adhere to diabetic diet check your blood sugars regularly check your feet on a daily basis Assessment & Plan (08/27/2024 3:24 PM EST): [...] sleep apnea syndrome 05/20/2012 Assessment & Plan (11/26/2024 3:12 PM EDT): Dx in 07/28/08 she had been using CPAP ever since with good resolution of her chronic headaches. Pt back under the care of Dr. Fernandez last note 11/02/2024 Pt reports her Cpap machine is working Doing well Assessment & Plan (08/27/2024 3:14 PM EST): [...] Encounters Date Type Department Care Team Description 04/21/2025 Telephone [facility] [address] [place] [address] Howie Shaw MD May03/04/2025 1:00 PM EDT Office Visit [facility] [address] [place] [address] Howie Shaw MD Type 2 diabetes mellitus without complication, without long-term current use of insulin ([facility]) (Primary Dx); Right lateral epicondylitis 03/04/2025 Travel 03/03/2025 Travel 02/25/2025 Patient Outreach [facility] [address] [place] [address] Howie Shaw MD Pre-visit Planning (SDOH was already completed) 02/24/2025 Telephone [facility] [address], [place] [phone] Howie Shaw MD Durable Medical Equipment 02/23/2025 11:20 AM EDT Office Visit [facility] [address], [place] [phone] Ashleigh Wilkins MD Muscle spasm of back (Primary Dx) 02/23/2025 Travel 02/21/2025 Refill [facility] [address] [place], [place] [phone] Howie Shaw MD Type 2 diabetes mellitus without complication, without long-term current use of insulin ([facility]) from Last 3 Months Immunizations Immunization Administration Dates Next Due Hep B, adult 06/04/2003,03/26/2003 Influenza injectable quadriv alent preservative free 03/21/2023,06/06/2021,04/08/2020,2018,04/18/2017 Influenza, IIV3, injectable 04/08/2014, 1 Influenza, Split (incl. harvey fied surface antigen) 09/04/2013 Influenza, seasonal, injecta ble, preservative free 05/07/2024,05/04/2012 TD (adult), 2 Lf tetanus tox oid, preservative free, adsorbed 10/08/2002 Tdap 01/12/2016 Family History Medical History Relation Name Comments Diabetes Brother Diabetes Father Diabetes Mother Relation Name Status Comments Brother Father Mother Social History Tobacco Use Types Packs/Day Years [...] Sign Reading Time Taken Comments Blood Pressure 130/80 03/04/2025 1:09 PM EDT Pulse 81 03/04/2025 1:09 PM EDT Temperature 37 C (98.6 F) 03/04/2025 1:09 PM EDT Respiratory Rate 20 03/04/2025 1:09 PM EDT Oxygen Saturation 98% 03/04/2025 1:09 PM EDT Inhaled Oxygen Concentration - - Weight 83.4 kg (183 lb 12.8 oz) 03/04/2025 1:09 PM EDT Height 160 cm (5' 3 ) 03/04/2025 1:09 PM EDT Body Mass Index 32.56 03/04/2025 1:09 PM EDT Plan of Treatment Upcoming Encounters Date Type Department Care Team (Late st Contact Info) Description 06/22/2025 10:30 AM EST Office Visit [facility] [address] [place] [address] Ashley Chan, OD [address] [place] [address] 06/29/2025 9:00 AM EST Office Visit [facility] [address] [place] [address] Howie Shaw MD [address] [place] [address] Health Maintenance Due Date Last Done Comments CT Colonography 1960 FIT DNA/Cologuard 1960 FIT 1960 FOBT 1960 HIV Screening 1960 Sigmoidoscopy 1960 Alcohol/Substance Use Screening 1972 Hepatitis C Screening 1978 Pneumococcal Vaccine: 50+ Years (1 of 2 - PCV) 10/08/1979 Hepatitis B Vaccines (3 of 3 - 19+ 3-dose series) 09/24/2003 06/04/2003, 03/26/2003 Zoster Vaccines (1 of 2) 2010 Diabetes: Foot Exam 08/22/2023 08/22/2022, 08/22/2022, 08/22/2022, Additional history exists Cervical Cancer Screening 11/18/2024 HPV/Cotest 11/18/2024 11/19/2019 Pap Smear 11/18/2024 11/19/2019 COVID-19 Vaccine ( - 2024- season) 2025 11/22/2020, 10/27/2020 Influenza Vaccine (#1) 2025 , 03/21/2023, 06/06/2021, Additional history exists Depression Screening 04/30/2025 04/30/2024, 04/30/20 24 Mammogram 08/03/2025 08/03/2024, 07/01, 04/26/2022, Additional history exists SDOH Screening 08/14/2025 08/14/2024 Diabetes: Urine Protein Screening 08/25/2025 08/25/2024, 08/27/2023, 09/06/2021, Additional history exists Lipid Panel 08/25/2025 08/25/2024, 08/0 03/2023, 09/06/2021, Additional history exists Disability Screening 08/26/2025 08/26/2024 Diabetes: Hemoglobin A1C 09/01/2025 025, 11/26/2024, 08/27/2024, Additional history exists Tobacco Screening 01/05/2026 01/05/2025 DTaP/Tdap/Td Vaccines (2 - Td or Tdap) 01/11/2026 01/12/2016, 10/08/2002 Eye Exam 12/21/2026 12/21/2024, 11/30, 12/21/2024, Additional history exists Colonoscopy 01/22/2033 01/22/2023 Colorectal Cancer Screening 01/22/2033 RSV Patients and Patients Aged 60 years or older (1 - 1-dose 75+ series) 10/08/2035 HIB [...] Diagnosis Comments POCT GLYCATED HEMOGLOBIN, TOTAL Routine 03/04/2025 1:12 PM EDT Type 2 diabetes mellitus without complication, without long-term current use of insulin ([facility]) POCT GLUCOSE Routine 03/04/2025 1:11 PM EDT Type 2 diabetes mellitus without complication, without long-term current use of insulin (CMS/HCC) ALBUMIN, RANDOM URINE W/CREATININE Routine 08/25/2024 12:33 PM EST Type 2 diabetes mellitus without complication, without long-term current use of insulin (CMS/HCC) LIPID PANEL, STANDARD Routine 08/25/2024 12:33 PM EST Elevated LDL cholesterol level BI MAMMOGRAM SCREENING TOMOSYNTHESIS BILATERAL Routine 08/03/2024 1:55 PM EST HM COLONOSCOPY Routine 01/22/2023 HM PAP/HPV Routine 11/19/2019 from Last 3 Months or Most Recently Relevant to Health Maintenance Results * (ABNORMAL) POCT Hgb A1c (03/04/2025 1:12 PM EDT) Hemoglobin A1C 6.4(A) 4.0 - 5.7 % QC Media Lot # [id number] Lot# Expiration Date 4162, Blood 03/04/2025 1:12 PM EDT us Howie Smith MD POINT OF CARE TEST EN TER/EDIT ORDERABLES Final Result * POCT Glucose (03/04/2025 1:11 PM EDT) Glucose Blood, POC 108 60 - 200 mg/dL QC Media Lot # [id number] Lot# Expiration Date [id number] Blood Capillary blood specimen / Unknown 03/04/2025 1:11 PM EDT us Howie Smith MD POINT OF CARE TEST EN TER/EDIT ORDERABLES Final Result * Albumin, Random Urine W/Creatinine (08/25/2024 12:33 PM EST) Creatinine, Urine 274.51 mg/dL [facility] Microalbumin Urine 24.0 mg/L H [facility] Microalbum Creatinine Ratio Ur 8.7 <30 ug/mg cr [facility] Comment:Albumin/Creatinine R atio Reference Ranges: Normal: < 30 ug/mg creatinine Microalbuminuria: 30 - 300 ug/mg creatinineClinical Albuminuria: > 300 ug/mg creatinine Urine (Urine, Random) 08/25/2024 12:33 PM EST 08/25/2024 1:08 PM EST us Howie Smith MD LAB URINE ORDERABLES Final Result [facility] [address] [place] [phone] * (ABNORMAL) Lipid Panel, Standard (08/25/2024 12:33 PM EST) Triglycerides 81 <150 mg/dL [facility] Comment:Desirable Triglyceri de: less than 150 mg/dLBorderline High Triglyceride 150-199 mg/dLHigh Triglyceride: 200-499 mg/dLVery High Triglyceride: greater than or equal to 5OO mg/dL Cholesterol 167 <200 mg/dL [facility] Comment:Desirable Cholestero l: less than 200 mg/dLBorderline High Cholesterol: 200-239 mg/dLHigh Cholesterol: greater than 239 mg/dL LDL Cholesterol Calculated 109(H) <100 mg/dL [facility] Comment:Desirable LDL: less than 100 mg/dLNear Optimal/Above Optimal LDL: 110- 129 mg/dLBorderline High LDL: 130-159 mg/dLHigh LDL: 160-189 mg/dLVery High LDL: greater than or equal to 190 mg/dL HDL Cholesterol 42 >40 mg/dL [facility] Comment:Desirable HDL: great er than 40 mg/dL Note: This HDL assay may give artificially low results in patients with liver disease. Blood Venous blood specimen / Unknown 08/25/2024 12:33 PM EST 08/25/2024 1:06 PM EST us Howie Smith MD LAB BLOOD ORDERABLES Final Result [facility] [address] [place] [address] [phone] * BI Mammogram Screening Tomosynthesis Bilateral (08/03/2024 1:55 PM EST) Anatomical Region Laterality Modality Breast Bilateral Mammography 08/03/2024 1:55 PM EST Narrative 08/09/2024 5:55 PM EST [address] [place] [address] Mammography Report Signed Patient: Johanna Drew MR#: [id number] : 1960 Acct:[id number] Age/Sex: 63 / F ADM Date: 08/03/24 Loc: HO.MAMMO Attending Dr: Howie Adams MD Ordering Physician: Howie Adams MD Resu lts: 1Negative Date of Service: 08/03/24 Follow Up: 1 Year From Orig ina Mammogram Procedure(s): MM tomosynthesis screening BI Accession Number(s): [id number] cc: Howie Adams MD EXAMINATION: MM SCREENING [...] 08/09/24 1753 DD/ 1355 TD/TT: 08/03/24 1420 Apartment Community Assistant Manager: Procedure Note Donotuseinterpreter, Image - 08/09/2024 [facility] [address] [place], [place] [address] Mammography Report Signed Patient: Fahad Drew#: [id number] : [id number]:[id number] Age/Sex: 63 / FADM Date: 08/03/24 Loc: HO.MAMMO Attending Dr: Howie Adams MD Ordering Physician: Howie Adams MDResu lts: 1Negative Date of Service: 08/03/24Follow Up: 1 Year From Orig inal Mammogram Procedure(s): MM tomosynthesis screening BI Accession Number(s): [id number] cc: Howie Adams MD EXAMINATION: MM SCREENING [...] 08/09/24 1753 DD/ 1355 TD/TT: 08/03/24 1420 Apartment Community Assistant Manager: Howie Smith MD IMG BI PROCEDURES Bony [...] Most Recently Relevant to Health Maintenance Insurance [facility] < [address] [place] [id number] Advance Directives Documents on File Type Date Recorded Patient Airset Caster Expl anation Advance Directives and Livin g Will 12/24/2024 Health Care Proxy Care Teams Head End 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
== END 2025-05-10 13:57 | disposition home or self-care (01) ==
LOC: HO.HPS 13:41
PROVIDERS: PCP Internal Medicine; Visit Provider Internal Medicine
DX: E66.9 Obesity, unspecified (principal); G47.33 Obstructive sleep apnea (adult) (pediatric); Z99.89 Dependence on other enabling machines and devices
CPT/HCPCS: 99213

== ENCOUNTER → 2025-05-10 13:41 | Outpatient (BNVA) | payer OTHER, SELFPAY | PROVIDERS: PCP Internal Medicine; Visit Provider Internal Medicine | DX: G47.33 Obstructive sleep apnea (adult) (pediatric) (principal); Z99.89 Dependence on other enabling machines and devices; E66.9 Obesity, unspecified | CPT/HCPCS: 99212 ==